=== PATIENT | male | born 1995 | race Caucasian/White ===

== ENCOUNTER 2017-04-25 00:58 | Emergency (ER) | payer BC, MEDICAID, SELFPAY | END 2017-04-25 03:47 | disposition home or self-care (01) | PROVIDERS: Emergency Provider Emergency Medicine; Family Provider Internal Medicine Adolescent Medicine; Visit Provider Emergency Medicine | DX: R31.0 Gross hematuria (principal); Q05.9 Spina bifida, unspecified; Z91.040 Latex allergy status | CPT/HCPCS: 51702; 74176; 80053; 85025; 99283 ==

== ENCOUNTER → 2017-06-06 12:18 | Outpatient (REF) | payer BC, MEDICAID, SELFPAY ==
[2017-06-06 12:22] LABS: Microscopic, Urine URINE MICROSCOPIC (MICROSCOPIC)
[2017-06-06 12:56] LABS: Appearance,Urine CLOUDY (Clear); Blood, Urine 3+ (Negative); Color,Urine ORANGE (Yellow); Glucose,Urine (UA) Negative (Negative); Ketones,Urine Negative (Negative); Leukocyte Esterase,Urine TRACE (Negative); Nitrate,Urine Negative (Negative); PH,Urine 5.5 (5.0-8.5); Protein,Urine 1+ (Negative); Specific Gravity, Urine >= 1.030 (1.005-1.030); Urobilinogen,Urine 0.2 EU/dl (0.2)
[2017-06-06 13:06] LABS: Bacteria,Urine 1+ /lpf; Bilirubin,Urine Negative (Negative); Mucus,Urine 1+ /lpf; RBC,Urine 20-50 #/hpf (0-3)
== END ==
LOC: LAB 12:18
PROVIDERS: Visit Provider Urology
DX: N39.0 Urinary tract infection, site not specified (principal)
CPT/HCPCS: 81001; 87086; 87088; 87186

== ENCOUNTER → 2018-02-10 09:21 | Outpatient (CLI) | payer BC, MEDICAID, SELFPAY ==
--- NOTE | 2018-02-10 09:24 | US_ITS ---
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 The right renal moiety measures 8.8 x 5 x 5.6 cm with mild prominence of the right renal pelvis. Left renal moiety measures 10 x 5 x 4 cm. No hydronephrosis evident on the left. No obvious renal calculi. IMPRESSION: Mild dilatation of the right renal moiety at the UPJ in this patient with known horseshoe kidney
--- NOTE | 2018-02-10 09:24 | US_ITS ---
US urinary bladder CLINICAL INDICATION: Chronic urinary tract infection, suprapubic catheter present ITS.REASON: chronic UTI ORDERING PHYSICIAN: Gregg Barrett MD PATIENT AGE: 22 years Comparison: None FINDINGS: Images obtained of the urinary bladder show a indwelling catheter present. There is some debris within the gravity dependent portion of the urinary bladder. Bladder wall itself has an unremarkable appearance The bladder volume is calculated be 156 mL's an empty bladder volume calculated to be 6 mL's. IMPRESSION: Small volume of urinary bladder at 156 mL's with full bladder decreasing to 6 mL's following drainage with some debris within the urinary bladder
== END ==
PROVIDERS: Family Provider Internal Medicine Adolescent Medicine; PCP Internal Medicine Adolescent Medicine; Visit Provider Urology
DX: N39.0 Urinary tract infection, site not specified (principal)
CPT/HCPCS: 76770; 76857; 87086; 87088; 87186

== ENCOUNTER → 2018-02-23 12:43 | Outpatient (CLI) | payer BC, MEDICAID, SELFPAY | PROVIDERS: PCP Internal Medicine Adolescent Medicine; Visit Provider Urology | DX: N39.0 Urinary tract infection, site not specified (principal) | CPT/HCPCS: 87086; 87088; 87186 ==

== ENCOUNTER → 2018-03-09 15:57 | Outpatient (CLI) | payer BC, MEDICAID, SELFPAY | PROVIDERS: Visit Provider Urology | DX: N39.0 Urinary tract infection, site not specified (principal) | CPT/HCPCS: 87086; 87088; 87186 ==

== ENCOUNTER 2018-03-12 15:21 | Outpatient (CLI) | payer BC, MEDICAID, SELFPAY ==
[2018-03-12 16:01] VITALS: BMI 28.3
[2018-03-12 16:05] VITALS: BP 102/54; PULSE 78; RESP 18; TEMP 36.5; O2SAT 98
--- NOTE | 2018-03-12 16:38 | PC.NURSE ---
03/12/18 1605 Invanz 1Gm IM given per MD order, 500mg IM L thigh, 500mg IM R thigh. Pt shanna well with no problems noted
--- NOTE | 2018-03-12 16:41 | PC.NURSE ---
03/12/18 1550 Order obtained from Josi Schaefer APRN to culture wound drainage from suprapubic catheter site. Patient and patient's Mother report increased drainage with very foul odor that has not responded to previous antibiotics. 1600- Wound culture done as ordered. Pt shanna well.
== END 2018-03-12 16:35 | disposition home or self-care (01) ==
LOC: INF 15:21
PROVIDERS: Visit Provider Urology
DX: N39.0 Urinary tract infection, site not specified (principal)
CPT/HCPCS: 87070; 87077; 87186; 87205; 96372; J1335

== ENCOUNTER 2018-03-13 14:45 | Outpatient (CLI) | payer BC, MEDICAID, SELFPAY ==
[2018-03-13 15:20] VITALS: BP 121/83; PULSE 98; RESP 16; TEMP 36.6; O2SAT 98
== END 2018-03-13 15:35 | disposition home or self-care (01) ==
LOC: INF 14:53
PROVIDERS: Visit Provider Urology
DX: N39.0 Urinary tract infection, site not specified (principal)
CPT/HCPCS: 96372; J1335

== ENCOUNTER 2018-03-14 14:40 | Outpatient (CLI) | payer BC, MEDICAID, SELFPAY ==
[2018-03-14 14:53] VITALS: BP 106/76; PULSE 85; RESP 16; O2SAT 99; BMI 28.3
== END 2018-03-14 15:08 | disposition home or self-care (01) ==
LOC: INF 14:41
PROVIDERS: PCP Urology; Visit Provider Urology
DX: N39.0 Urinary tract infection, site not specified (principal)
CPT/HCPCS: 96372; J1335

== ENCOUNTER 2018-03-15 14:48 | Outpatient (CLI) | payer BC, MEDICAID, SELFPAY ==
[2018-03-15 15:04] VITALS: BMI 28.3
[2018-03-15 15:05] VITALS: BP 113/78; PULSE 79; RESP 18; TEMP 36.6; O2SAT 98
[2018-03-15 15:23] VITALS: BP 113/78; PULSE 79; RESP 18; TEMP 36.6; O2SAT 98
== END 2018-03-15 15:25 | disposition home or self-care (01) ==
LOC: INF 14:48
PROVIDERS: PCP Urology; Visit Provider Urology
DX: N39.0 Urinary tract infection, site not specified (principal)
CPT/HCPCS: 96372; G0463; J1335

== ENCOUNTER 2018-03-16 14:49 | Outpatient (CLI) | payer BC, MEDICAID, SELFPAY ==
[2018-03-16 15:08] VITALS: BP 110/67; PULSE 73; RESP 18; TEMP 36.5; O2SAT 97
== END 2018-03-16 15:20 | disposition home or self-care (01) ==
LOC: INF 14:49
PROVIDERS: Visit Provider Urology
DX: N39.0 Urinary tract infection, site not specified (principal)
CPT/HCPCS: 96372; J1335

== ENCOUNTER 2018-03-17 14:40 | Outpatient (CLI) | payer BC, MEDICAID, SELFPAY ==
[2018-03-17 14:48] VITALS: BP 102/71; PULSE 81; RESP 18; TEMP 36.4; O2SAT 98
== END 2018-03-17 15:10 | disposition home or self-care (01) ==
LOC: INF 14:40
PROVIDERS: Visit Provider Urology
DX: N39.0 Urinary tract infection, site not specified (principal)
CPT/HCPCS: 96372; J1335

== ENCOUNTER 2018-03-18 14:20 | Outpatient (CLI) | payer BC, MEDICAID, SELFPAY ==
[2018-03-18 14:50] VITALS: BP 111/65; PULSE 115; RESP 18; TEMP 36.6; O2SAT 95
== END 2018-03-18 15:05 | disposition home or self-care (01) ==
LOC: INF 14:28
PROVIDERS: Visit Provider Urology
DX: N39.0 Urinary tract infection, site not specified (principal)
CPT/HCPCS: 96372; J1335

== ENCOUNTER 2018-03-19 14:35 | Outpatient (CLI) | payer BC, MEDICAID, SELFPAY ==
[2018-03-19 14:55] VITALS: BP 99/71; PULSE 89; RESP 18; O2SAT 99
== END 2018-03-19 15:15 | disposition home or self-care (01) ==
LOC: INF 14:51
PROVIDERS: Visit Provider Urology
DX: N39.0 Urinary tract infection, site not specified (principal)
CPT/HCPCS: 96372; J1335

== ENCOUNTER 2018-03-20 14:45 | Outpatient (CLI) | payer BC, MEDICAID, SELFPAY ==
[2018-03-20 14:55] VITALS: BP 111/73; PULSE 94; RESP 18; TEMP 36.2; O2SAT 100
== END 2018-03-20 15:15 | disposition home or self-care (01) ==
LOC: INF 14:56
PROVIDERS: Visit Provider Urology
DX: N39.0 Urinary tract infection, site not specified (principal)
CPT/HCPCS: 96372; J1335

== ENCOUNTER 2018-03-21 14:44 | Outpatient (CLI) | payer BC, MEDICAID, SELFPAY | END 2018-03-21 15:50 | disposition home or self-care (01) | LOC: INF 14:44 | PROVIDERS: PCP Internal Medicine Adolescent Medicine; Visit Provider Urology | DX: N39.0 Urinary tract infection, site not specified (principal) | CPT/HCPCS: 96372; J1335 ==

== ENCOUNTER → 2018-03-22 14:29 | Outpatient (CLI) | payer BC, MEDICAID, SELFPAY ==
[2018-03-22 14:30] VITALS: BP 110/75; PULSE 96; RESP 16; TEMP 36.6; O2SAT 100
== END ==
PROVIDERS: PCP Internal Medicine Adolescent Medicine; Visit Provider Urology
DX: N39.0 Urinary tract infection, site not specified (principal)
CPT/HCPCS: 96372; J1335

== ENCOUNTER 2018-03-23 14:40 | Outpatient (CLI) | payer BC, MEDICAID, SELFPAY ==
[2018-03-23 15:00] VITALS: BP 109/65; PULSE 105; RESP 18; TEMP 36.6; O2SAT 99
== END 2018-03-23 15:15 | disposition home or self-care (01) ==
LOC: INF 14:40
PROVIDERS: Visit Provider Urology
DX: N39.0 Urinary tract infection, site not specified (principal)
CPT/HCPCS: 96372; J1335

== ENCOUNTER 2018-03-24 14:52 | Outpatient (CLI) | payer BC, MEDICAID, SELFPAY ==
[2018-03-24 15:05] VITALS: BP 108/74; PULSE 103; RESP 18; TEMP 36.6; O2SAT 99
--- NOTE | 2018-03-24 15:24 | PC.NURSE ---
03/24/18 1505 Invanz 1 GM IM given as ordered, 500mg L thigh, 500mg R thigh. Pt shanna well.
== END 2018-03-24 15:27 | disposition home or self-care (01) ==
LOC: INF 14:52
PROVIDERS: Visit Provider Urology
DX: N39.0 Urinary tract infection, site not specified (principal)
CPT/HCPCS: 96372; J1335

== ENCOUNTER 2018-03-25 14:24 | Outpatient (CLI) | payer BC, MEDICAID, SELFPAY ==
[2018-03-25 14:45] VITALS: BP 96/69; PULSE 96; RESP 18; TEMP 36.9; O2SAT 95
== END 2018-03-25 14:45 | disposition home or self-care (01) ==
LOC: INF 14:24
PROVIDERS: Visit Provider Urology
DX: N39.0 Urinary tract infection, site not specified (principal)
CPT/HCPCS: 96372; J1335

== ENCOUNTER → 2018-04-24 14:26 | Outpatient (CLI) | payer BC, MEDICAID, SELFPAY ==
[2018-04-24 14:32] LABS: Microscopic, Urine URINE MICROSCOPIC (MICROSCOPIC)
[2018-04-24 16:35] LABS: Appearance,Urine CLOUDY (Clear); Bilirubin,Urine Negative (Negative); Blood, Urine 2+ (Negative); Color,Urine YELLOW (Yellow); Glucose,Urine (UA) Negative (Negative); Ketones,Urine Negative (Negative); Leukocyte Esterase,Urine 2+ (Negative); Nitrate,Urine Negative (Negative); PH,Urine 6.5 (5.0-8.5); Protein,Urine 1+ (Negative); Specific Gravity, Urine 1.025 (1.005-1.030)
[2018-04-24 16:51] LABS: Bacteria,Urine 3+ /lpf; Squamous Epithelial Cell,Urine Occasional #/hpf (0-5)
== END ==
PROVIDERS: PCP Internal Medicine Adolescent Medicine; Visit Provider Internal Medicine Adolescent Medicine
DX: R82.90 Unspecified abnormal findings in urine (principal)
CPT/HCPCS: 81001; 87086; 87088; 87186

== ENCOUNTER 2018-10-09 14:00 | Outpatient (CLI) | payer BC, MEDICAID, SELFPAY ==
[2018-10-09 15:25] VITALS: BP 106/75; PULSE 86; RESP 16; O2SAT 99
[2018-10-09 15:43] VITALS: BMI 26.1
[2018-10-09 15:55] VITALS: BP 110/79; PULSE 101; RESP 16
[2018-10-09 16:25] VITALS: BP 124/65; PULSE 119; RESP 16
[2018-10-09 17:07] LABS: Creatinine Clearance Estimated 394 mL/min (50-200); Estimated Glomerular Filt Rate 604 ml/min (>60); GFR (African American) 731 ML/MIN (>60)
[2018-10-09 18:15] LABS: Tobramycin,Peak 9.2 ug/mL (4.0-10.0)
== END 2018-10-09 18:17 | disposition home or self-care (01) ==
LOC: INF 14:02
PROVIDERS: Visit Provider Internal Medicine Adolescent Medicine
DX: N39.0 Urinary tract infection, site not specified (principal)
CPT/HCPCS: 36415; 80200; 82565; 96365

== ENCOUNTER 2018-10-10 13:52 | Outpatient (CLI) | payer BC, MEDICAID, SELFPAY ==
[2018-10-10 14:06] VITALS: BMI 26.1
[2018-10-10 14:30] VITALS: BP 117/79; PULSE 89; RESP 16; O2SAT 97
[2018-10-10 15:17] LABS: Tobramycin,Trough 0.1 ug/ml (0-2.0)
== END 2018-10-10 16:47 | disposition home or self-care (01) ==
LOC: INF 13:52
PROVIDERS: PCP Internal Medicine Adolescent Medicine; Visit Provider Internal Medicine Adolescent Medicine
DX: N39.0 Urinary tract infection, site not specified (principal)
CPT/HCPCS: 36415; 80200; 96365

== ENCOUNTER 2018-10-11 13:12 | Outpatient (CLI) | payer BC, MEDICAID, SELFPAY ==
[2018-10-11 13:30] VITALS: BP 115/76; PULSE 86; RESP 18; TEMP 36.7; O2SAT 99
[2018-10-11 14:46] VITALS: BP 112/77; PULSE 85; RESP 18; O2SAT 99
== END 2018-10-11 14:47 | disposition home or self-care (01) ==
LOC: INF 13:12
PROVIDERS: PCP Internal Medicine Adolescent Medicine; Visit Provider Internal Medicine Adolescent Medicine
DX: N39.0 Urinary tract infection, site not specified (principal)
CPT/HCPCS: 96365

== ENCOUNTER 2018-10-13 14:08 | Outpatient (CLI) | payer BC, MEDICAID, SELFPAY ==
[2018-10-13 15:00] VITALS: BP 117/79; PULSE 81; RESP 18; TEMP 36.6; O2SAT 98
== END 2018-10-13 15:00 | disposition home or self-care (01) ==
LOC: INF 14:08
PROVIDERS: Visit Provider Internal Medicine Adolescent Medicine
DX: N39.0 Urinary tract infection, site not specified (principal)

== ENCOUNTER → 2018-11-16 08:56 | Outpatient (CLI) | payer BC, MEDICAID, SELFPAY ==
--- NOTE | 2018-11-16 09:04 | US_ITS ---
US abdomen complete HISTORY: ITS.REASON: ABD WALL CELLULITIS,CHRONIC SUPRAPUBIC ORDERING PHYSICIAN: Job Delgado MD PATIENT AGE: 22 years COMPARISON: None FINDINGS: LIVER:No focal liver lesions demonstrated. Homogeneous echogenicity. No intrahepatic biliary ductal dilatation evident RIGHT KIDNEY:Unremarkable. Normal size and echogenicity. No hydronephrosis LEFT KIDNEY:Unremarkable. No hydronephrosis. Normal size and echogenicity. GALLBLADDER:No gallstones, gallbladder wall thickening, pericholecystic fluid, or biliary dilatation. SPLEEN:Unremarkable. Normal size and echogenicity ASCITES:None demonstrated. Soft tissues: There is a Cano catheter within the urinary bladder which is collapsed. No evidence of abscess around the catheter. IMPRESSION: Unremarkable abdominal ultrasound. Cano catheter in place within a collapsed urinary bladder with no obvious abscess
== END ==
PROVIDERS: PCP Internal Medicine Adolescent Medicine; Visit Provider Internal Medicine Adolescent Medicine
DX: L03.311 Cellulitis of abdominal wall (principal); Z93.59 Other cystostomy status
CPT/HCPCS: 76700

== ENCOUNTER → 2019-03-16 11:14 | Outpatient (CLI) | payer BC, MEDICAID, SELFPAY | PROVIDERS: PCP Internal Medicine Adolescent Medicine; Visit Provider Urology | DX: N39.0 Urinary tract infection, site not specified (principal) | CPT/HCPCS: 87086; 87088; 87186 ==

== ENCOUNTER 2019-03-19 13:22 | Outpatient (CLI) | payer BC, MEDICAID, SELFPAY ==
[2019-03-19 13:20] VITALS: BP 116/81; PULSE 115; RESP 18; TEMP 37.1; O2SAT 98
== END 2019-03-19 13:42 | disposition home or self-care (01) ==
LOC: INF 13:22
PROVIDERS: Visit Provider Urology
DX: N39.0 Urinary tract infection, site not specified (principal)
CPT/HCPCS: 96372

== ENCOUNTER → 2019-03-20 12:55 | Outpatient (CLI) | payer BC, MEDICAID, SELFPAY ==
[2019-03-20 13:06] VITALS: BMI 21.2
[2019-03-20 13:10] VITALS: BP 113/71; PULSE 71; RESP 18; TEMP 36.8; O2SAT 96
[2019-03-20 13:12] VITALS: BP 113/74; PULSE 76; RESP 16; TEMP 36.8; O2SAT 96
== END ==
PROVIDERS: PCP Internal Medicine Adolescent Medicine; Visit Provider Urology
DX: N39.0 Urinary tract infection, site not specified (principal)
CPT/HCPCS: 96372

== ENCOUNTER 2019-03-21 13:03 | Outpatient (CLI) | payer BC, MEDICAID, SELFPAY ==
[2019-03-21 13:20] VITALS: BP 119/85; PULSE 92; RESP 18; TEMP 36.9; O2SAT 99
[2019-03-21 13:30] VITALS: BP 122/84; PULSE 88; RESP 18; TEMP 36.9; O2SAT 99
== END 2019-03-21 13:30 | disposition home or self-care (01) ==
PROVIDERS: PCP Internal Medicine Adolescent Medicine; Visit Provider Urology
DX: N39.0 Urinary tract infection, site not specified (principal)
CPT/HCPCS: 96372; G0463

== ENCOUNTER 2019-03-22 13:40 | Outpatient (CLI) | payer BC, MEDICAID, SELFPAY ==
[2019-03-22 13:58] VITALS: BP 138/79; PULSE 90; RESP 18; O2SAT 96
== END 2019-03-22 14:00 | disposition home or self-care (01) ==
LOC: INF 13:41
PROVIDERS: Visit Provider Urology
DX: N39.0 Urinary tract infection, site not specified (principal)
CPT/HCPCS: 96372

== ENCOUNTER 2019-03-23 13:45 | Outpatient (CLI) | payer BC, MEDICAID, SELFPAY ==
[2019-03-23 14:05] VITALS: BP 133/97; PULSE 102; RESP 18; TEMP 36.9
== END 2019-03-23 14:05 | disposition home or self-care (01) ==
LOC: INF 13:45
PROVIDERS: Visit Provider Urology
DX: N39.0 Urinary tract infection, site not specified (principal)
CPT/HCPCS: 96372

== ENCOUNTER 2019-03-24 13:36 | Outpatient (CLI) | payer BC, MEDICAID, SELFPAY ==
[2019-03-24 13:47] VITALS: BP 122/86; PULSE 90; RESP 18
== END 2019-03-24 13:50 | disposition home or self-care (01) ==
LOC: INF 13:36
PROVIDERS: Visit Provider Urology
DX: N39.0 Urinary tract infection, site not specified (principal)
CPT/HCPCS: 96372

== ENCOUNTER 2019-03-25 13:37 | Outpatient (CLI) | payer BC, MEDICAID, SELFPAY ==
[2019-03-25 13:48] VITALS: BP 115/83; PULSE 93; RESP 18; TEMP 36.3
== END 2019-03-25 13:48 | disposition home or self-care (01) ==
LOC: INF 13:37
PROVIDERS: Visit Provider Urology
DX: N39.0 Urinary tract infection, site not specified (principal)
CPT/HCPCS: 96372

== ENCOUNTER 2019-03-26 13:32 | Outpatient (CLI) | payer BC, MEDICAID, SELFPAY ==
[2019-03-26 13:48] VITALS: BP 144/100; PULSE 87; RESP 18; TEMP 36.8
== END 2019-03-26 13:53 | disposition home or self-care (01) ==
LOC: INF 13:47
PROVIDERS: Visit Provider Urology
DX: N39.0 Urinary tract infection, site not specified (principal)
CPT/HCPCS: 96372

== ENCOUNTER 2019-03-27 13:33 | Outpatient (CLI) | payer BC, MEDICAID, SELFPAY ==
[2019-03-27 13:46] VITALS: BP 109/76; PULSE 88; O2SAT 98
== END 2019-03-27 14:03 | disposition home or self-care (01) ==
PROVIDERS: PCP Internal Medicine Adolescent Medicine; Visit Provider Urology
DX: N39.0 Urinary tract infection, site not specified (principal)
CPT/HCPCS: 96372

== ENCOUNTER 2019-03-28 13:27 | Outpatient (CLI) | payer BC, MEDICAID, SELFPAY ==
[2019-03-28 13:42] VITALS: BP 112/79; PULSE 89; RESP 18; TEMP 36.3; O2SAT 100
[2019-03-28 13:50] VITALS: BP 112/79; PULSE 89; RESP 18; TEMP 36.3; O2SAT 100
== END 2019-03-28 13:50 | disposition home or self-care (01) ==
LOC: INF 13:30
PROVIDERS: PCP Internal Medicine Adolescent Medicine; Visit Provider Urology
DX: N39.0 Urinary tract infection, site not specified (principal)
CPT/HCPCS: 96372; 96374

== ENCOUNTER → 2019-06-18 09:35 | Outpatient (CLI) | payer BC, MEDICAID, SELFPAY | PROVIDERS: Visit Provider Urology | DX: N39.0 Urinary tract infection, site not specified (principal) | CPT/HCPCS: 87086; 87088; 87186 ==

== ENCOUNTER → 2019-08-18 13:42 | Outpatient (CLI) | payer BC, MEDICAID, SELFPAY | PROVIDERS: Visit Provider Urology | DX: N39.0 Urinary tract infection, site not specified (principal) | CPT/HCPCS: 87086; 87088; 87186 ==

== ENCOUNTER → 2019-10-05 12:57 | Outpatient (CLI) | payer BC, MEDICAID, SELFPAY | PROVIDERS: Visit Provider Urology | DX: N39.0 Urinary tract infection, site not specified (principal) | CPT/HCPCS: 87086; 87088; 87186 ==

== ENCOUNTER → 2020-05-17 11:17 | Outpatient (CLI) | payer BC, MEDICAID, SELFPAY | PROVIDERS: Visit Provider Internal Medicine Adolescent Medicine | DX: N39.0 Urinary tract infection, site not specified (principal); L03.311 Cellulitis of abdominal wall | CPT/HCPCS: 87070; 87077; 87086; 87088; 87186; 87205 ==

== ENCOUNTER 2020-05-24 14:49 | Outpatient (CLI) | payer BC, MEDICAID, SELFPAY ==
[2020-05-24 15:50] VITALS: BP 145/95; PULSE 102; RESP 18; TEMP 36.4; O2SAT 100
== END 2020-05-24 16:05 | disposition home or self-care (01) ==
LOC: INF 14:49
PROVIDERS: PCP Internal Medicine Adolescent Medicine; Visit Provider Internal Medicine Adolescent Medicine
DX: N39.0 Urinary tract infection, site not specified (principal)
CPT/HCPCS: 96372; J0692

== ENCOUNTER 2020-05-25 15:06 | Outpatient (CLI) | payer BC, MEDICAID, SELFPAY ==
[2020-05-25 15:15] VITALS: BP 126/77; PULSE 129; RESP 18; TEMP 36.1; O2SAT 98
== END 2020-05-25 15:30 | disposition home or self-care (01) ==
LOC: INF 15:06
PROVIDERS: Visit Provider Internal Medicine Adolescent Medicine
DX: N39.0 Urinary tract infection, site not specified (principal)
CPT/HCPCS: 96372; J0692

== ENCOUNTER 2020-05-26 15:10 | Outpatient (CLI) | payer BC, MEDICAID, SELFPAY | END 2020-05-26 15:40 | disposition home or self-care (01) | LOC: INF 15:19 | PROVIDERS: Visit Provider Internal Medicine Adolescent Medicine | DX: N39.0 Urinary tract infection, site not specified (principal) | CPT/HCPCS: 96372; J0692 ==

== ENCOUNTER → 2020-05-27 15:27 | Outpatient (CLI) | payer BC, MEDICAID, SELFPAY ==
[2020-05-27 15:40] VITALS: BP 121/83; PULSE 108; RESP 16; TEMP 36.8; O2SAT 98
== END ==
PROVIDERS: PCP Internal Medicine Adolescent Medicine; Visit Provider Internal Medicine Adolescent Medicine
DX: N39.0 Urinary tract infection, site not specified (principal)
CPT/HCPCS: 96372; J0692

== ENCOUNTER 2020-05-28 14:57 | Outpatient (CLI) | payer BC, MEDICAID, SELFPAY ==
[2020-05-28 15:00] VITALS: BP 121/73; PULSE 112; RESP 18; TEMP 36.2
[2020-05-28 15:32] VITALS: BP 119/70; PULSE 110; RESP 18
== END 2020-05-28 15:34 | disposition home or self-care (01) ==
LOC: INF 14:58
PROVIDERS: PCP Internal Medicine Adolescent Medicine; Visit Provider Internal Medicine Adolescent Medicine
DX: N39.0 Urinary tract infection, site not specified (principal)
CPT/HCPCS: 96372; 96374; J0692

== ENCOUNTER 2020-05-29 15:10 | Outpatient (CLI) | payer BC, MEDICAID, SELFPAY ==
[2020-05-29 15:24] VITALS: BP 133/89; PULSE 125; RESP 18; TEMP 36.5; O2SAT 96
== END 2020-05-29 15:24 | disposition home or self-care (01) ==
LOC: INF 15:11
PROVIDERS: Visit Provider Internal Medicine Adolescent Medicine
DX: N39.0 Urinary tract infection, site not specified (principal)
CPT/HCPCS: 96372; J0692

== ENCOUNTER 2020-05-30 15:00 | Outpatient (CLI) | payer BC, MEDICAID, SELFPAY ==
[2020-05-30 15:15] VITALS: BP 133/91; PULSE 129; RESP 18; TEMP 36.6
== END 2020-05-30 15:15 | disposition home or self-care (01) ==
LOC: INF 15:00
PROVIDERS: Visit Provider Internal Medicine Adolescent Medicine
DX: N39.0 Urinary tract infection, site not specified (principal)
CPT/HCPCS: 96372; J0692

== ENCOUNTER → 2020-06-06 11:30 | Outpatient (CLI) | payer BC, MEDICAID, SELFPAY ==
[2020-06-06 11:33] LABS: Microscopic,Cath URINE MICROSCOPIC (MICROSCOPIC)
[2020-06-06 14:27] LABS: Appearance,Urine/Cath CLEAR (Clear); Bilirubin,Cath Negative (Negative); Blood, Urine/Cath 3+ (Negative); Color,Urine/Cath YELLOW (Yellow); Glucose,Urine/Cath (UA) Negative (Negative); Ketones,Urine/Cath Negative (Negative); Leukocyte Esterase,Cath 1+ (Negative); Nitrate,Cath Negative (Negative); PH,Urine/Cath 6.5 (5.0-8.5); Protein,Urine/Cath TRACE (Negative); Urobilinogen,Cath 0.2 EU/dl (0.2)
[2020-06-06 14:35] LABS: Bacteria,Urine/Cath TRACE /lpf; Squamous Epithelial Ur./Cath Occasional #/hpf (0-5)
== END ==
PROVIDERS: Visit Provider Internal Medicine Adolescent Medicine
DX: N39.0 Urinary tract infection, site not specified (principal)
CPT/HCPCS: 81001; 87086; 87088; 87186

== ENCOUNTER → 2020-10-23 17:42 | Outpatient (CLI) | payer BC, MEDICAID, SELFPAY | PROVIDERS: Visit Provider Internal Medicine Adolescent Medicine | DX: R82.90 Unspecified abnormal findings in urine (principal) | CPT/HCPCS: 87086; 87088; 87186 ==

== ENCOUNTER → 2021-01-29 08:00 | Outpatient (CLI) | payer BC, MEDICAID, SELFPAY | PROVIDERS: Visit Provider Internal Medicine Adolescent Medicine | DX: R50.9 Fever, unspecified (principal) | CPT/HCPCS: 87086; 87088; 87186 ==

== ENCOUNTER → 2021-02-05 14:10 | Outpatient (CLI) | payer BC, MEDICAID, SELFPAY ==
[2021-02-05 14:38] VITALS: BP 120/76; PULSE 111; RESP 18; TEMP 36.1; O2SAT 111
== END ==
PROVIDERS: PCP Internal Medicine Adolescent Medicine; Visit Provider Internal Medicine Adolescent Medicine
DX: N39.0 Urinary tract infection, site not specified (principal)
CPT/HCPCS: 96372; J1335

== ENCOUNTER 2021-02-06 13:49 | Outpatient (CLI) | payer BC, MEDICAID, SELFPAY ==
[2021-02-06 14:12] VITALS: BP 120/84; PULSE 98; RESP 18; TEMP 36.4; O2SAT 98
== END 2021-02-06 14:12 | disposition home or self-care (01) ==
LOC: INF 13:49
PROVIDERS: PCP Internal Medicine Adolescent Medicine; Visit Provider Internal Medicine Adolescent Medicine
DX: N39.0 Urinary tract infection, site not specified (principal); B96.89 Other specified bacterial agents as the cause of diseases classified elsewhere
CPT/HCPCS: 96372; J1335

== ENCOUNTER 2021-02-07 13:56 | Outpatient (CLI) | payer BC, MEDICAID, SELFPAY ==
[2021-02-07 14:24] VITALS: BP 117/74; PULSE 101; RESP 18; O2SAT 98
== END 2021-02-07 14:26 | disposition home or self-care (01) ==
LOC: INF 13:58
PROVIDERS: PCP Internal Medicine Adolescent Medicine; Visit Provider Internal Medicine Adolescent Medicine
DX: N39.0 Urinary tract infection, site not specified (principal)
CPT/HCPCS: 96372; J1335

== ENCOUNTER 2021-02-08 13:36 | Outpatient (CLI) | payer BC, MEDICAID, SELFPAY ==
[2021-02-08 13:56] VITALS: BP 112/75; PULSE 78; RESP 18; TEMP 36.3; O2SAT 100
== END 2021-02-08 13:56 | disposition home or self-care (01) ==
LOC: INF 13:37
PROVIDERS: PCP Internal Medicine Adolescent Medicine; Visit Provider Internal Medicine Adolescent Medicine
DX: N39.0 Urinary tract infection, site not specified (principal)
CPT/HCPCS: 96372; J1335

== ENCOUNTER 2021-02-09 13:53 | Outpatient (CLI) | payer BC, MEDICAID, SELFPAY ==
[2021-02-09 14:30] VITALS: BP 110/73; PULSE 89; RESP 17; TEMP 36.8; O2SAT 99
== END 2021-02-09 14:32 | disposition home or self-care (01) ==
LOC: INF 13:54
PROVIDERS: PCP Internal Medicine Adolescent Medicine; Visit Provider Internal Medicine Adolescent Medicine
DX: N39.0 Urinary tract infection, site not specified (principal)
CPT/HCPCS: 96372; J1335

== ENCOUNTER 2021-02-10 13:52 | Outpatient (CLI) | payer BC, MEDICAID, SELFPAY | END 2021-02-10 14:25 | disposition home or self-care (01) | PROVIDERS: PCP Internal Medicine Adolescent Medicine; Visit Provider Internal Medicine Adolescent Medicine | DX: N39.0 Urinary tract infection, site not specified (principal) | CPT/HCPCS: 96372; 96374; J1335 ==

== ENCOUNTER 2021-02-11 13:53 | Outpatient (CLI) | payer BC, MEDICAID, SELFPAY | END 2021-02-11 14:24 | disposition home or self-care (01) | PROVIDERS: PCP Internal Medicine Adolescent Medicine; Visit Provider Internal Medicine Adolescent Medicine | DX: N39.0 Urinary tract infection, site not specified (principal) | CPT/HCPCS: 96372; J1335 ==

== ENCOUNTER → 2021-03-05 11:07 | Outpatient (CLI) | payer BC, MEDICAID, SELFPAY | PROVIDERS: Visit Provider Nurse Practitioner Family | DX: R82.90 Unspecified abnormal findings in urine (principal); B96.89 Other specified bacterial agents as the cause of diseases classified elsewhere | CPT/HCPCS: 87086; 87088; 87186 ==

== ENCOUNTER → 2021-04-23 18:02 | Outpatient (CLI) | payer BC, MEDICAID, SELFPAY | PROVIDERS: Visit Provider Internal Medicine Adolescent Medicine | DX: R82.90 Unspecified abnormal findings in urine (principal); B96.1 Klebsiella pneumoniae [K. pneumoniae] as the cause of diseases classified elsewhere; B96.89 Other specified bacterial agents as the cause of diseases classified elsewhere | CPT/HCPCS: 87086; 87088; 87186 ==

== ENCOUNTER → 2021-05-08 18:15 | Outpatient (CLI) | payer BC, MEDICAID, SELFPAY | PROVIDERS: Visit Provider Internal Medicine Adolescent Medicine | DX: R82.90 Unspecified abnormal findings in urine (principal); B96.89 Other specified bacterial agents as the cause of diseases classified elsewhere | CPT/HCPCS: 87086; 87088; 87186 ==

== ENCOUNTER → 2021-12-19 14:12 | Outpatient (CLI) | payer MEDICAID, SELFPAY | PROVIDERS: PCP Internal Medicine Adolescent Medicine; Visit Provider Internal Medicine Adolescent Medicine | DX: R82.90 Unspecified abnormal findings in urine (principal); B96.1 Klebsiella pneumoniae [K. pneumoniae] as the cause of diseases classified elsewhere | CPT/HCPCS: 87086; 87088; 87186 ==

== ENCOUNTER → 2022-01-04 13:43 | Outpatient (CLI) | payer MEDICAID, SELFPAY | PROVIDERS: PCP Internal Medicine Adolescent Medicine; Visit Provider Internal Medicine Adolescent Medicine | DX: N39.0 Urinary tract infection, site not specified (principal); B96.1 Klebsiella pneumoniae [K. pneumoniae] as the cause of diseases classified elsewhere | CPT/HCPCS: 87086; 87088; 87186 ==

== ENCOUNTER 2022-02-19 11:07 | Outpatient (CLI) | payer MEDICAID, SELFPAY ==
[2022-02-19 12:03] VITALS: BMI 25.1
[2022-02-19 12:37] LABS: Basophils # 0.1 K/mm3 (0-0.2); Basophils % 0.9 % (0.1-2.0); Eosinophils # 0.3 K/mm3 (0.0-0.4); Eosinophils % 2.9 % (0.1-12.0); Hemoglobin 15.3 g/dL (14.1-18.0); Lymphocytes # 1.5 K/mm3 (0.7-4.5); Lymphocytes % 15.6 % (10-50); Mean Corpuscular HGB Conc 32.7 g/dL (31.8-35.4); Mean Corpuscular Hemoglobin 27.6 pg (27.0-31.2); Mean Corpuscular Volume 84.5 fl (80-94); Mean Platelet Volume 8.7 fl (7.4-10.4); Monocytes # 0.5 K/mm3 (0.1-1.0); Monocytes % 4.7 % (1.7-9.3); Neutrophils # 7.5 K/mm3 (1.8-7.8); Neutrophils % 75.9 % (37.0-80.0); Platelet Count 437 K/mm3 (142-424); Red Blood Count 5.56 M/mm3 (4.60-6.20); Red Cell Distribution Width 14.4 % (11.5-17.5); White Blood Count 9.8 K/mm3 (4.8-10.8)
--- NOTE | 2022-02-19 13:00 | PC.NURSE ---
1300-received message from radha grant in lab that pt's potassium level was 6.9 sample could be hemolized; will notify alejandro huerta aprn for further orders.
--- NOTE | 2022-02-19 13:21 | PC.NURSE ---
report recieved from alondra rosen rn, pt currently in waiting state for labs results to come back so that medication can be dosed.
--- NOTE | 2022-02-19 13:38 | PC.NURSE ---
1935-per alejandro huerta aprn lab to come redraw bmp.
--- NOTE | 2022-02-19 13:47 | PC.WOUNDNOTE ---
ATTEMPTED PICC X 2 STICKS; NOT ABLE TO GET ACCESS EITHER TIME; MOM DID NOT WANT PATIENT STUCK MORE THAN TWICE; CALLED AND REPORTED TO Jasmin LAM; AWAITING FURTHER ORDERS FROM HER; Jasmin LAM CALLED BACK AND PT WILL BE SEEING SURGERY TOMORROW FOR CENTRAL LINE THE GENT THAT IS ORDERED IS WHAT THE PATIENT NEEDS; THEY WILL ALSO TALK TO THE PATIENT AND MOM ABOUT FUTURE PLACEMENT OF PAC PATIENT IS EXTREMELY DIFFICULT STICK; LABS WERE ORDERED TODAY AND LAB HAD TO DRAW A FINGERSTICK THEY WERE UNABLE TO GET ACCESS VIA VEIN WELL.
[2022-02-19 13:50] VITALS: BP 101/58; PULSE 84; RESP 18; TEMP 36.4; O2SAT 99
[2022-02-19 14:34] LABS: Chloride 104 mmol/L (98-107); Sodium 141 mmol/L (136-145)
[2022-02-19 14:35] LABS: Potassium 4.1 mmoL/L (3.5-5.1)
[2022-02-19 14:37] LABS: Blood Urea Nitrogen 4 mg/dl (9-20); Creatinine Clearance Estimated 391 mL/min (50-200); Estimated Glomerular Filt Rate 583 ml/min (>60); GFR (African American) 706 ML/MIN (>60)
[2022-02-19 14:38] LABS: Anion Gap 18.1 mEq/L (5-15); Calcium 8.8 mg/dl (8.4-10.2); Carbon Dioxide 23 mmol/L (22.0-30.0); Glucose 168 mg/dl (74-100)
== END 2022-02-19 14:05 | disposition home or self-care (01) ==
LOC: INF 11:08
PROVIDERS: PCP Nurse Practitioner Family; Visit Provider Nurse Practitioner Family
DX: N39.0 Urinary tract infection, site not specified (principal); B96.89 Other specified bacterial agents as the cause of diseases classified elsewhere; B96.5 Pseudomonas (aeruginosa) (mallei) (pseudomallei) as the cause of diseases classified elsewhere
CPT/HCPCS: 36415; 80048; 85025; 96372; C1751

== ENCOUNTER → 2022-02-20 09:59 | Outpatient (CLI) | payer MEDICAID, SELFPAY ==
[2022-02-20 10:17] VITALS: BP 114/67; PULSE 84; RESP 18; TEMP 36.7; O2SAT 99
[2022-02-20 11:15] VITALS: BMI 25.1
[2022-02-20 11:59] LABS: Gentamicin,Peak 7.3 ug/ml (4.0-8.0)
[2022-02-20 21:20] VITALS: BP 136/87; PULSE 86; RESP 18; TEMP 36.8; O2SAT 97; BMI 25.0
== END ==
PROVIDERS: PCP Nurse Practitioner Family; Visit Provider Nurse Practitioner Family
DX: N39.0 Urinary tract infection, site not specified (principal); B96.89 Other specified bacterial agents as the cause of diseases classified elsewhere; B96.5 Pseudomonas (aeruginosa) (mallei) (pseudomallei) as the cause of diseases classified elsewhere
CPT/HCPCS: 36415; 80170; 96372

== ENCOUNTER → 2022-02-20 20:54 | Outpatient (CLI) | payer MEDICAID, SELFPAY ==
[2022-02-20 21:25] VITALS: BMI 33.7
== END ==
PROVIDERS: PCP Internal Medicine Adolescent Medicine; Visit Provider Nurse Practitioner Family
DX: N39.0 Urinary tract infection, site not specified (principal); B96.89 Other specified bacterial agents as the cause of diseases classified elsewhere; B96.5 Pseudomonas (aeruginosa) (mallei) (pseudomallei) as the cause of diseases classified elsewhere

== ENCOUNTER 2022-02-21 09:19 | Outpatient (CLI) | payer MEDICAID, SELFPAY ==
[2022-02-21 09:20] VITALS: BP 134/83; PULSE 79; RESP 18; O2SAT 99; BMI 25.1
[2022-02-21 10:40] LABS: Gentamicin,Trough 0.9 ug/ml (0.0-2.0)
[2022-02-21 21:35] VITALS: BP 115/82; PULSE 84; RESP 19; TEMP 36.6; O2SAT 99
== END 2022-02-21 21:40 | disposition home or self-care (01) ==
PROVIDERS: PCP Internal Medicine Adolescent Medicine; Visit Provider Nurse Practitioner Family
DX: N39.0 Urinary tract infection, site not specified (principal); B96.89 Other specified bacterial agents as the cause of diseases classified elsewhere; B96.5 Pseudomonas (aeruginosa) (mallei) (pseudomallei) as the cause of diseases classified elsewhere
CPT/HCPCS: 36415; 80170; 96372

== ENCOUNTER 2022-02-22 09:09 | Outpatient (CLI) | payer MEDICAID, SELFPAY ==
[2022-02-22 09:17] VITALS: BP 128/72; PULSE 73; RESP 18; O2SAT 100
[2022-02-22 21:02] VITALS: BMI 36.1
[2022-02-22 21:19] VITALS: BP 127/82; PULSE 101; RESP 16; TEMP 36.9; O2SAT 100
[2022-02-22 21:31] VITALS: BP 113/78; PULSE 86; RESP 18; TEMP 36.8; O2SAT 99
== END 2022-02-22 09:23 | disposition home or self-care (01) ==
LOC: INF 09:10
PROVIDERS: PCP Nurse Practitioner Family; Visit Provider Nurse Practitioner Family
DX: N39.0 Urinary tract infection, site not specified (principal); B96.89 Other specified bacterial agents as the cause of diseases classified elsewhere; B96.5 Pseudomonas (aeruginosa) (mallei) (pseudomallei) as the cause of diseases classified elsewhere
CPT/HCPCS: 96372

== ENCOUNTER 2022-02-23 09:46 | Outpatient (CLI) | payer MEDICAID, SELFPAY ==
[2022-02-23 10:02] VITALS: BMI 36.2
--- NOTE | 2022-02-23 17:57 | PC.NURSE ---
2 VIALS OF GENTAMYCIN PULLED FOR PM DOSE PER [employer] REQUEST. LEFT IN HOUSE SUPERVISORS OFFICE.
[2022-02-23 20:55] VITALS: BP 116/78; PULSE 100; RESP 16; TEMP 37; O2SAT 98
[2022-02-23 20:58] VITALS: BP 119/74; PULSE 95; O2SAT 99
[2022-02-23 21:00] VITALS: BMI 36.2
== END 2022-02-23 10:09 | disposition home or self-care (01) ==
LOC: INF 09:46
PROVIDERS: PCP Internal Medicine Adolescent Medicine; Visit Provider Nurse Practitioner Family
DX: N39.0 Urinary tract infection, site not specified (principal); B96.89 Other specified bacterial agents as the cause of diseases classified elsewhere; B96.5 Pseudomonas (aeruginosa) (mallei) (pseudomallei) as the cause of diseases classified elsewhere
CPT/HCPCS: 96372; 96374

== ENCOUNTER 2022-02-24 10:16 | Outpatient (CLI) | payer MEDICAID, SELFPAY ==
[2022-02-24 10:16] VITALS: BP 124/62; PULSE 71; RESP 18; TEMP 36.8; O2SAT 98
[2022-02-24 10:48] VITALS: BMI 36.2
[2022-02-24 21:00] VITALS: BP 114/81; PULSE 97; RESP 15; TEMP 36.6; O2SAT 97
== END 2022-02-24 21:04 | disposition home or self-care (01) ==
PROVIDERS: PCP Nurse Practitioner Family; Visit Provider Nurse Practitioner Family
DX: N39.0 Urinary tract infection, site not specified (principal); B96.89 Other specified bacterial agents as the cause of diseases classified elsewhere; B96.5 Pseudomonas (aeruginosa) (mallei) (pseudomallei) as the cause of diseases classified elsewhere
CPT/HCPCS: 96372; 96374; G0463

== ENCOUNTER 2022-02-25 09:11 | Outpatient (CLI) | payer MEDICAID, SELFPAY ==
[2022-02-25 09:20] VITALS: BP 127/85; PULSE 86; RESP 18; O2SAT 98
[2022-02-25 20:25] VITALS: BP 119/86; PULSE 92; RESP 16; TEMP 37.1; O2SAT 98
== END 2022-02-25 20:30 | disposition home or self-care (01) ==
PROVIDERS: PCP Nurse Practitioner Family; Visit Provider Nurse Practitioner Family
DX: N39.0 Urinary tract infection, site not specified (principal); B96.89 Other specified bacterial agents as the cause of diseases classified elsewhere; B96.5 Pseudomonas (aeruginosa) (mallei) (pseudomallei) as the cause of diseases classified elsewhere
CPT/HCPCS: 96372

== ENCOUNTER → 2022-02-26 09:55 | Outpatient (CLI) | payer MEDICAID, SELFPAY ==
[2022-02-26 09:58] VITALS: BMI 25.1
[2022-02-26 10:06] VITALS: BP 120/74; PULSE 83; RESP 18; TEMP 36.8; O2SAT 99
[2022-02-26 11:00] LABS: Gentamicin,Trough 0.8 ug/ml (0.0-2.0)
== END ==
PROVIDERS: PCP Nurse Practitioner Family; Visit Provider Nurse Practitioner Family
DX: N39.0 Urinary tract infection, site not specified (principal); B96.89 Other specified bacterial agents as the cause of diseases classified elsewhere; B96.5 Pseudomonas (aeruginosa) (mallei) (pseudomallei) as the cause of diseases classified elsewhere
CPT/HCPCS: 36415; 80170; 96372

== ENCOUNTER → 2022-02-27 11:07 | Outpatient (CLI) | payer MEDICAID, SELFPAY ==
[2022-02-27 11:18] VITALS: BP 116/80; PULSE 86; RESP 18; O2SAT 98
== END ==
PROVIDERS: PCP Nurse Practitioner Family; Visit Provider Nurse Practitioner Family
DX: N39.0 Urinary tract infection, site not specified (principal); B96.89 Other specified bacterial agents as the cause of diseases classified elsewhere; B96.5 Pseudomonas (aeruginosa) (mallei) (pseudomallei) as the cause of diseases classified elsewhere
CPT/HCPCS: 96372

== ENCOUNTER → 2022-02-28 11:26 | Outpatient (CLI) | payer MEDICAID, SELFPAY ==
[2022-02-28 11:35] VITALS: BP 121/84; PULSE 92; RESP 18; O2SAT 99
[2022-02-28 23:43] VITALS: BMI 31.3
== END ==
PROVIDERS: PCP Nurse Practitioner Family; Visit Provider Nurse Practitioner Family
DX: N39.0 Urinary tract infection, site not specified (principal); B96.89 Other specified bacterial agents as the cause of diseases classified elsewhere; B96.5 Pseudomonas (aeruginosa) (mallei) (pseudomallei) as the cause of diseases classified elsewhere
CPT/HCPCS: 96372; G0463

== ENCOUNTER 2022-03-01 12:08 | Outpatient (CLI) | payer MEDICAID, SELFPAY ==
[2022-03-01 12:10] VITALS: BP 108/75; PULSE 87; RESP 16; O2SAT 100
== END 2022-03-01 12:22 | disposition home or self-care (01) ==
LOC: INF 12:09
PROVIDERS: PCP Nurse Practitioner Family; Visit Provider Nurse Practitioner Family
DX: N39.0 Urinary tract infection, site not specified (principal); B96.89 Other specified bacterial agents as the cause of diseases classified elsewhere; B96.5 Pseudomonas (aeruginosa) (mallei) (pseudomallei) as the cause of diseases classified elsewhere
CPT/HCPCS: 96372

== ENCOUNTER → 2022-05-22 15:59 | Outpatient (CLI) | payer MEDICAID, SELFPAY ==
[2022-05-22 16:06] LABS: Microscopic,Cath URINE MICROSCOPIC (MICROSCOPIC)
[2022-05-22 16:42] LABS: Appearance,Urine/Cath CLEAR (Clear); Bilirubin,Cath Negative (Negative); Blood, Urine/Cath 3+ (Negative); Color,Urine/Cath YELLOW (Yellow); Glucose,Urine/Cath (UA) Negative (Negative); Ketones,Urine/Cath Negative (Negative); Leukocyte Esterase,Cath 3+ (Negative); Nitrate,Cath Negative (Negative); Protein,Urine/Cath 1+ (Negative); Specific Gravity, Urine/Cath <= 1.005 (1.005-1.030); Urobilinogen,Cath 0.2 EU/dl (0.2)
[2022-05-22 16:49] LABS: Bacteria,Urine/Cath 1+ /lpf; Squamous Epithelial Ur./Cath Occasional #/hpf (0-5)
== END ==
PROVIDERS: PCP Nurse Practitioner Family; Visit Provider Internal Medicine Adolescent Medicine
DX: N39.0 Urinary tract infection, site not specified (principal); B96.89 Other specified bacterial agents as the cause of diseases classified elsewhere
CPT/HCPCS: 81001; 87086; 87088; 87186

== ENCOUNTER → 2022-07-27 15:15 | Outpatient (CLI) | payer MEDICAID, SELFPAY | PROVIDERS: PCP Internal Medicine Adolescent Medicine; Visit Provider Internal Medicine Adolescent Medicine | DX: R50.9 Fever, unspecified (principal); R82.90 Unspecified abnormal findings in urine; B96.1 Klebsiella pneumoniae [K. pneumoniae] as the cause of diseases classified elsewhere | CPT/HCPCS: 87086; 87088; 87186 ==

== ENCOUNTER → 2022-09-11 13:44 | Outpatient (CLI) | payer MEDICAID, SELFPAY | PROVIDERS: PCP Internal Medicine Adolescent Medicine; Visit Provider Internal Medicine Adolescent Medicine | DX: R50.9 Fever, unspecified (principal); R82.90 Unspecified abnormal findings in urine; B95.2 Enterococcus as the cause of diseases classified elsewhere | CPT/HCPCS: 87086; 87088; 87186 ==

== ENCOUNTER → 2022-09-27 14:30 | Outpatient (CLI) | payer MEDICAID, SELFPAY | PROVIDERS: PCP Internal Medicine Adolescent Medicine; Visit Provider Internal Medicine Adolescent Medicine | DX: N39.0 Urinary tract infection, site not specified (principal); B96.89 Other specified bacterial agents as the cause of diseases classified elsewhere; B96.29 Other Escherichia coli [E. coli] as the cause of diseases classified elsewhere | CPT/HCPCS: 87086; 87088; 87186 ==

== ENCOUNTER → 2022-11-05 13:03 | Outpatient (CLI) | payer MEDICAID, SELFPAY | PROVIDERS: PCP Internal Medicine Adolescent Medicine; Visit Provider Internal Medicine Adolescent Medicine | DX: R82.90 Unspecified abnormal findings in urine (principal); B95.2 Enterococcus as the cause of diseases classified elsewhere | CPT/HCPCS: 87086; 87088; 87186 ==

== ENCOUNTER → 2022-12-27 13:20 | Outpatient (CLI) | payer MEDICAID, SELFPAY ==
[2022-12-27 13:38] LABS: Microscopic, Urine URINE MICROSCOPIC (MICROSCOPIC)
[2022-12-27 14:58] LABS: Appearance,Urine CLOUDY (Clear); Bilirubin,Urine Negative (Negative); Blood, Urine 3+ (Negative); Color,Urine YELLOW (Yellow); Glucose,Urine (UA) Negative (Negative); Ketones,Urine Negative (Negative); Leukocyte Esterase,Urine 2+ (Negative); Nitrate,Urine Negative (Negative); Protein,Urine 1+ (Negative); Specific Gravity, Urine 1.015 (1.005-1.030)
[2022-12-27 15:29] LABS: Bacteria,Urine 3+ /lpf; Squamous Epithelial Cell,Urine Occasional #/hpf (0-5); WBC,Urine 20-50 #/hpf (0-3)
== END ==
PROVIDERS: PCP Internal Medicine Adolescent Medicine; Visit Provider Internal Medicine Adolescent Medicine
DX: N39.0 Urinary tract infection, site not specified (principal); B96.1 Klebsiella pneumoniae [K. pneumoniae] as the cause of diseases classified elsewhere; B96.29 Other Escherichia coli [E. coli] as the cause of diseases classified elsewhere
CPT/HCPCS: 81001; 87086; 87088; 87186

== ENCOUNTER → 2023-01-31 18:32 | Outpatient (CLI) | payer MEDICAID, SELFPAY ==
[2023-01-31 19:33] LABS: Microscopic, Urine URINE MICROSCOPIC (MICROSCOPIC)
[2023-01-31 19:42] LABS: Appearance,Urine CLOUDY (Clear); Bilirubin,Urine Negative (Negative); Blood, Urine 3+ (Negative); Color,Urine YELLOW (Yellow); Glucose,Urine (UA) Negative (Negative); Ketones,Urine Negative (Negative); Leukocyte Esterase,Urine 2+ (Negative); Nitrate,Urine Negative (Negative); Protein,Urine 2+ (Negative); Specific Gravity, Urine >= 1.030 (1.005-1.030)
[2023-01-31 19:51] LABS: Bacteria,Urine Trace /lpf; Squamous Epithelial Cell,Urine Occasional #/hpf (0-5); WBC,Urine TNTC #/hpf (0-3)
== END ==
PROVIDERS: PCP Internal Medicine Adolescent Medicine; Visit Provider Nurse Practitioner Family
DX: R31.9 Hematuria, unspecified (principal); R82.90 Unspecified abnormal findings in urine; B96.29 Other Escherichia coli [E. coli] as the cause of diseases classified elsewhere
CPT/HCPCS: 81001; 87086; 87088; 87186

== ENCOUNTER → 2023-03-11 13:44 | Outpatient (CLI) | payer MEDICAID, SELFPAY | PROVIDERS: PCP Internal Medicine Adolescent Medicine; Visit Provider Internal Medicine Adolescent Medicine | DX: R82.90 Unspecified abnormal findings in urine (principal); B96.29 Other Escherichia coli [E. coli] as the cause of diseases classified elsewhere; B96.1 Klebsiella pneumoniae [K. pneumoniae] as the cause of diseases classified elsewhere; B96.4 Proteus (mirabilis) (morganii) as the cause of diseases classified elsewhere | CPT/HCPCS: 87086 ==

== ENCOUNTER → 2023-04-23 16:13 | Outpatient (CLI) | payer MEDICAID, SELFPAY | LOC: LAB.DROPOF 16:13 | PROVIDERS: PCP Nurse Practitioner Family; Visit Provider Nurse Practitioner Family | DX: R82.90 Unspecified abnormal findings in urine (principal); B96.5 Pseudomonas (aeruginosa) (mallei) (pseudomallei) as the cause of diseases classified elsewhere; B95.2 Enterococcus as the cause of diseases classified elsewhere | CPT/HCPCS: 87086 ==

== ENCOUNTER 2023-05-01 13:02 | Outpatient (CLI) | payer MEDICAID, SELFPAY ==
[2023-05-01 13:07] VITALS: BMI 28.9
[2023-05-01 13:15] VITALS: BP 118/78; PULSE 80; RESP 18; TEMP 36.8; O2SAT 97
[2023-05-01 13:19] LABS: Basophils # 0.1 K/mm3 (0-0.2); Basophils % 0.6 % (0.1-2.0); Eosinophils # 0.3 K/mm3 (0.0-0.4); Eosinophils % 2.6 % (0.1-12.0); Hematocrit 48.1 % (42.0-52.0); Lymphocytes # 3.2 K/mm3 (0.7-4.5); Lymphocytes % 30.3 % (10-50); Mean Corpuscular HGB Conc 33.4 g/dL (31.8-35.4); Mean Corpuscular Hemoglobin 28.1 pg (27.0-31.2); Mean Corpuscular Volume 84.1 fl (80-94); Monocytes # 0.5 K/mm3 (0.1-1.0); Monocytes % 4.5 % (1.7-9.3); Neutrophils # 6.6 K/mm3 (1.8-7.8); Platelet Count 367 K/mm3 (142-424); Red Blood Count 5.72 M/mm3 (4.60-6.20); Red Cell Distribution Width 14.3 % (11.5-17.5); White Blood Count 10.6 K/mm3 (4.8-10.8)
[2023-05-01 13:33] LABS: Blood Urea Nitrogen 10 mg/dl (9-20); Calcium 9.1 mg/dl (8.4-10.2); Carbon Dioxide 25 mmol/L (22.0-30.0); Chloride 102 mmol/L (98-107); Creatinine Clearance Estimated 215 mL/min (50-200); Estimated Glomerular Filt Rate 260 ml/min (>60); GFR (African American) 315 ML/MIN (>60); Glucose 103 mg/dl (74-100); Sodium 138 mmol/L (136-145)
[2023-05-01] MEDS: GENTAMICIN 80 MG/2 ML VIAL 100 MG IM (13:42)
== END 2023-05-01 13:40 | disposition home or self-care (01) ==
PROVIDERS: Nurse Practitioner Family; PCP Internal Medicine Adolescent Medicine; Visit Provider Internal Medicine Adolescent Medicine
DX: N39.0 Urinary tract infection, site not specified (principal); B96.5 Pseudomonas (aeruginosa) (mallei) (pseudomallei) as the cause of diseases classified elsewhere
CPT/HCPCS: 36415; 80048; 85025; 96372

== ENCOUNTER → 2023-05-02 08:52 | Outpatient (CLI) | payer MEDICAID, SELFPAY ==
[2023-05-02 08:53] VITALS: BMI 28.9
[2023-05-02] MEDS: GENTAMICIN 80 MG/2 ML VIAL 100 MG IM ×2 (09:01→20:01)
[2023-05-02 09:46] LABS: Gentamicin,Trough < 0.6 ug/ml (0.0-2.0)
[2023-05-02 10:05] VITALS: BP 126/81; BP 128/64; PULSE 90; PULSE 96; RESP 18; TEMP 36.4; O2SAT 98
[2023-05-02 10:22] LABS: Gentamicin,Peak 6.8 ug/ml (4.0-8.0)
[2023-05-02 20:02] VITALS: BMI 29.0
[2023-05-02 20:09] VITALS: BP 123/92; PULSE 92; RESP 16; TEMP 36.9; O2SAT 96
== END ==
PROVIDERS: PCP Nurse Practitioner Family; Visit Provider Nurse Practitioner Family
DX: N39.0 Urinary tract infection, site not specified (principal); B96.5 Pseudomonas (aeruginosa) (mallei) (pseudomallei) as the cause of diseases classified elsewhere
CPT/HCPCS: 36415; 80170; 96372; G0463

== ENCOUNTER 2023-05-03 09:16 | Outpatient (CLI) | payer MEDICAID, SELFPAY ==
[2023-05-03] MEDS: GENTAMICIN 80 MG/2 ML VIAL 100 MG IM ×2 (09:33→20:15)
[2023-05-03 19:36] VITALS: BMI 26.9
[2023-05-03 20:17] VITALS: BP 120/87; PULSE 72; RESP 16; TEMP 37.1; O2SAT 97
== END 2023-05-03 20:15 | disposition home or self-care (01) ==
PROVIDERS: PCP Nurse Practitioner Family; Visit Provider Nurse Practitioner Family
DX: N39.0 Urinary tract infection, site not specified (principal); B96.5 Pseudomonas (aeruginosa) (mallei) (pseudomallei) as the cause of diseases classified elsewhere
CPT/HCPCS: 96372; G0463

== ENCOUNTER → 2023-05-04 10:11 | Outpatient (CLI) | payer MEDICAID, SELFPAY ==
[2023-05-04 10:19] VITALS: BMI 29.0
[2023-05-04] MEDS: GENTAMICIN 80 MG/2 ML VIAL 100 MG IM ×2 (10:20→20:13)
[2023-05-04 20:17] VITALS: BP 134/83; PULSE 109; RESP 18; TEMP 37.2; O2SAT 98
== END ==
PROVIDERS: PCP Internal Medicine Adolescent Medicine; Visit Provider Nurse Practitioner Family
DX: N39.0 Urinary tract infection, site not specified (principal); B96.5 Pseudomonas (aeruginosa) (mallei) (pseudomallei) as the cause of diseases classified elsewhere
CPT/HCPCS: 96372

== ENCOUNTER 2023-05-05 11:32 | Outpatient (CLI) | payer MEDICAID, SELFPAY ==
--- NOTE | 2023-05-05 11:41 | PC.NURSE ---
pharmacy called for medication
[2023-05-05] MEDS: GENTAMICIN 80 MG/2 ML VIAL 100 MG IM (11:53)
[2023-05-05 11:58] VITALS: BP 116/72; PULSE 92; RESP 16; O2SAT 98
== END 2023-05-05 23:59 ==
PROVIDERS: PCP Internal Medicine Adolescent Medicine; Visit Provider Nurse Practitioner Family
DX: N39.0 Urinary tract infection, site not specified (principal); B96.5 Pseudomonas (aeruginosa) (mallei) (pseudomallei) as the cause of diseases classified elsewhere
CPT/HCPCS: 96372; G0463

== ENCOUNTER 2023-05-06 09:33 | Outpatient (CLI) | payer MEDICAID, SELFPAY ==
[2023-05-06 09:50] VITALS: BP 110/67; PULSE 92; RESP 18; O2SAT 96
[2023-05-06] MEDS: GENTAMICIN 80 MG/2 ML VIAL 100 MG IM ×2 (09:50→20:49)
[2023-05-06 20:45] VITALS: BMI 27.1
[2023-05-06 20:50] VITALS: BP 112/72; PULSE 72; RESP 16; TEMP 36.9; O2SAT 97
== END 2023-05-06 23:59 ==
PROVIDERS: PCP Internal Medicine Adolescent Medicine; Visit Provider Internal Medicine Adolescent Medicine
DX: N39.0 Urinary tract infection, site not specified (principal); B96.5 Pseudomonas (aeruginosa) (mallei) (pseudomallei) as the cause of diseases classified elsewhere
CPT/HCPCS: 96372; G0463

== ENCOUNTER 2023-05-07 09:16 | Outpatient (CLI) | payer MEDICAID, SELFPAY ==
[2023-05-07] MEDS: GENTAMICIN 80 MG/2 ML VIAL 100 MG IM ×2 (09:34→20:16)
[2023-05-07 20:06] VITALS: BMI 28.9
[2023-05-07 20:07] VITALS: BP 125/82; PULSE 104; RESP 17; TEMP 36.7; O2SAT 94
[2023-05-07 20:12] VITALS: BP 125/82; PULSE 104; RESP 16; TEMP 36.7; O2SAT 94
[2023-05-07 20:19] VITALS: BP 125/82; PULSE 104; RESP 16; TEMP 36.7; O2SAT 94
== END 2023-05-07 23:59 ==
PROVIDERS: PCP Internal Medicine Adolescent Medicine; Visit Provider Nurse Practitioner Family
DX: N39.0 Urinary tract infection, site not specified (principal); B96.5 Pseudomonas (aeruginosa) (mallei) (pseudomallei) as the cause of diseases classified elsewhere
CPT/HCPCS: 96372

== ENCOUNTER 2023-05-08 09:22 | Outpatient (CLI) | payer MEDICAID, SELFPAY ==
[2023-05-08] MEDS: GENTAMICIN 80 MG/2 ML VIAL 100 MG IM ×2 (09:27→20:26)
[2023-05-08 09:30] VITALS: BP 124/83; PULSE 84; RESP 18; TEMP 36.7; O2SAT 100
[2023-05-08 20:20] VITALS: BP 105/67; PULSE 89; RESP 16; TEMP 36.7; O2SAT 97
[2023-05-08 20:23] VITALS: BMI 21.0
[2023-05-08 20:31] VITALS: BP 105/67; PULSE 84; RESP 16; TEMP 36.7; O2SAT 97
== END 2023-05-08 23:59 ==
PROVIDERS: PCP Internal Medicine Adolescent Medicine; Visit Provider Internal Medicine Adolescent Medicine
DX: N39.0 Urinary tract infection, site not specified (principal); B96.5 Pseudomonas (aeruginosa) (mallei) (pseudomallei) as the cause of diseases classified elsewhere
CPT/HCPCS: 96372

== ENCOUNTER 2023-05-27 13:28 | Outpatient (CLI) | payer MEDICAID, SELFPAY | END 2023-05-27 23:59 | LOC: LAB.DROPOF 13:29 | PROVIDERS: PCP Internal Medicine Adolescent Medicine; Visit Provider Nurse Practitioner Family | DX: R82.90 Unspecified abnormal findings in urine (principal); B96.20 Unspecified Escherichia coli [E. coli] as the cause of diseases classified elsewhere | CPT/HCPCS: 87086 ==

== ENCOUNTER 2023-07-15 09:58 | Outpatient (CLI) | payer MEDICAID, SELFPAY ==
--- NOTE | 2023-07-15 10:03 | FL_ITS ---
FINAL REPORT CLINICAL HISTORY: .POSSIBLE FISTULA , RECURRENT UTI'S 51 sec 33.48 mgy FINDINGS: CYSTOGRAM HISTORY: Patient with suprapubic catheter and frequent UTIs. PROCEDURE: Contrast was introduced via suprapubic catheter into the urinary bladder by gravity drip. Spot and overhead films were obtained. FINDINGS: Assistant Press Operator Offset film is normal. The urinary bladder distends appropriately. There is no reflux of contrast. No extravasation of contrast was identified to indicate leak. Contrast does extend through the penile urethra. Flouoscopy time: 51 seconds Radiation exposure in Reference air Kerma:33.48 mGy IMPRESSION: Normal cystogram Films reviewed , interpreted and dictated by Dr. Navi Fierro Transcribed by Marco Hernandez PA-C. Reviewed, Interpreted and Dictated by Navi Fierro III, MD Transcribed by [employer] Authenticated and . [facility]
[2023-07-15] MEDS: DIATRIZOATE MEGLUMINE 18% 300ML BOTTLE 150 ML IJ (11:32)
== END 2023-07-15 23:59 ==
LOC: RAD 09:58
PROVIDERS: PCP Internal Medicine Adolescent Medicine; Visit Provider Internal Medicine Adolescent Medicine
DX: L98.8 Other specified disorders of the skin and subcutaneous tissue (principal)
CPT/HCPCS: 74430; Q9958

== ENCOUNTER 2024-08-13 13:47 | Outpatient (CLI) | payer MEDICAID, SELFPAY ==
--- OUTSIDE RECORDS SUMMARY | 2024-08-13 13:49 | XMS_ITS | Data Portability ---
Author Organization KARY YASMANY William ELSA CLOSED Address [address] [facility] [address] [place] [address] Assessment Encounter Date Assessment Date Assessment LastModified by Organization Details LastModified Time 04/30/2017 04/30/2017 SURGERY DATE: 04/30/2017 PREOPERATIVE DIAGNOSIS: Neurogenic bladder with urethral trauma POSTOPERATIVE DIAGNOSIS: Neurogenic bladder with urethral trauma false passage/strictur e. PROCEDURE: Cystoscopy and Cano catheter placement. ANESTHESIA: Local MAC. SURGEON: Gregg Rogers MD. BRIEF HISTORY: The patient is a 21-year-old young male with spinal bifida. His mother has been managing his urinary tract with intermittent catheterizations , had more difficulty with catheterization. He presented today for cystoscopy for further evaluation. PROCEDURE: After satisfactory positioning where he was carefully positioned into the dorsal lithotomy with stirrups, he was given sedation. Genitourinary area was prepped and draped in standard fashion. The 19-Somali cystoscope sheath was introduced with a 30 degree lens. Pendulous urethra was small, but easily accommodated the scope. Bulbous urethra was unremarkable. Prostatic urethra however, did have 3 areas of false passage with extension below the bladder neck. Two were on the left side, 1 was on the right side. His bladder neck was high, but non-obstructing and wide open. Upon entering the bladder, the bladder was otherwise unremarkable. I then passed a 0.035 Zip wire into the bladder through the cystoscope. The cystoscope was withdrawn and fashioned to 16 Somali latex free ute catheter placed this over the wire into the bladder. 10 mL were placed in the balloon, The bladder was irrigated and aspirated freely. We will leave his catheter for a month and then if he continues to have issues with catheterization, we will need to revisit replacement of a suprapubic catheter. [email or web address] Not available 05/01/2017 02:16:53 10/05/2021 10/05/2021 We reviewed the diagnosis of suprapubic catheter and association of chronic bacteriuria. Patient does not have specific systemic symptoms related to UTI. I would not encourage chronic antibiotics due to risk of resistance and other potential side effects. We discussed need for adequate hydration. Catheter exchange every 3 weeks, currently every 4, may help decrease UTI risk. Methenamine for UTI suppression. Topical vaginal antifungal cream for candidiasis of skin folds. [email or web address] Not available 10/07/2021 12:12:08 Plan of Treatment Reminders Order Date Submit Date Provider Last Modified By Organization Details Last Modified Time Details Appointments None recorded. Lab None recorded. Referral None recorded. Procedures None recorded. Surgeries None recorded. Imaging None recorded. Medication Orders clotrimazol e-betametha sone 1 %-0.05 % topical cream 2021 022 [employer], [address] [place] [address], [id number], 12:31:08 methenamine hippurate 1 gram tablet 2021 022 [employer], [address] [place] [address], [id number], 12:31:08 Patient TargetsNo targets recorded. Patient Instructions Encounter Date Encounter Id Patient Instructions Last Modified By Organization Details Last Modified Time 07/19/2019 [id number] neurogenic bladder: care instructions Not available 07/19/2019 12:04:05 Reason for Referral None Reported. Results Created Date Observation Date Name Description Value Unit Range Abnormal Flag Note LastModifiedBy Organization Detail LastModifiedTime 05/16/19 18 04/25/2017 CT, abdom en + pelvi s, w/o contr ast No observ ation record ed. [facility] ([facility]) [address] [place] [address] [address], [place], [address], 05/16/2017 16:58:32 02/11/20 18 02/10/2018 , abhi er No observ ation record ed. [email or web address] [facility] [address] [place] [address], [id number], 02/11/2018 12:18:14 02/11/20 18 02/10/2018 US, retro perit oneum , compl ete No observ ation record ed. [address], [place], [address], 02/11/2018 12:18:49 01/26/20 19 11/16/2018 US, abdom en, compl ete No observ ation record ed. [address], [place], [address], 01/25/2019 12:17:02 Result Notes None recorded. Procedures Surgical History Date Name Laterality Status Provider Name and Address Organization Details Recorded Time 8 ASPIRATION, BLADDER, INSERTION OF SUPRAPUBIC CATHETER (SURG) [facility]13[facility] 13:52:42 7 ASPIRATION, BLADDER, INSERTION OF SUPRAPUBIC CATHETER (SURG) completed GREGG HARRISON MD [address] [place] [address], [phone], [facility] 09/02/2016 12:34:34 Imaging Results Imaging Date Name Status LastModified by [facility] Details LastModified Time 04/25/2017 CT, abdomen + pelvis, w/o contrast completed [facility] (Scheduling) [address] [place] [address] [address], [place], [address], 05/16/2017 16:58:32 02/10/2018 US, bladder [place] [address] [facility] [address] [place] [address] [address] [place], [id number], 02/11/2018 12:18:14 02/10/2018 US, retroperitone um, complete completed [address], [place], [address], 02/11/2018 12:18:49 11/16/2018 US, abdomen, complete completed [facility] [address], [place], [address], 01/25/2019 12:17:02 Procedure Notes None recorded. Medical Equipment None Reported. Allergies Allergen ID Allergen Name Allergen Category Reaction Reaction Severity Criticality Documentation Date Start Date Code Code System Note Provider Name and Address Organization Details Recorded Time 554201 latex environme nt,medica tion Not available Not available Not available 07/19/2019 55446 91 RxNorm Stephanie Marquez [facility] 0 11:36:14 452978 banana extract food,medi cation Not available Not available Not available 07/19/2019 94961 9 RxNorm [facility] 0 11:36:20 Medications Name Sig Start Date Stop Date Status Note LastModified by Organization Details LastModified Time cefuroxime axetil 250 mg tablet Take 1 tablet every 12 hours by oral route for 14 days. 10/05 completed Not Available Not Available Not Available Augmentin 250 mg-62.5 mg/5 mL oral suspension Take 10 mL every 12 hours by oral route as directed. 10/05 completed Not Available Not Available Not Available methenamine hippurate 1 gram tablet Take 1 tablet twice a day by oral route for 90 days. 2021 active Not Available Not Available Not Avai lable Diflucan 100 mg tablet Take 1 tablet every day by oral route for 7 days. 07/18 completed Not Available Not Available Not Available doxycycline monohydrate 100 mg capsule Take 1 capsule twice a day by oral route for 14 days. 10/05 completed Not Available Not Available Not Available clotrimazol e-betametha sone 1 %-0.05 % topical cream APPLY TO THE AFFECTED AND SURROUNDI NG AREAS OF SKIN BY TOPICAL ROUTE 2 TIMES PER DAY IN THE MORNING AND EVENING FOR 2 WEEKS 2021 active Not Available Not Available Not Avai lable Levaquin 500 mg tablet Take 1 tablet every 24 hours by oral route for 10 days. 07/18 completed Not Available Not Available Not Available cefuroxime axetil 500 mg tablet Take 1 tablet every 12 hours by oral route for 10 days. 10/05 completed Not Available Not Available Not Available Cipro 500 mg/5 mL oral suspension Take 5 mL every 12 hours by oral route for 15 days. 07/18 completed Not Available Not Available Not Available Vitals Date Recorded Body weight Provider Name an d Address Organization Details Last Updated DateTime 07/19/2019 94415.16 g Stephanie Marquez [facility] 07/19/2019 11:36:08 Date Recorded Body weight Provider Name an d Address Organization Details Last Updated DateTime 10/05/2021 54347.16 g Jerilyn Mcelroy [facility] 0 10/05/2021 11:53:59 Social History Question Answer Notes LastModified by Organizat ion Details LastModified Time Tobacco Smoking Status Never Smoker Stephanie Marquez [facility] 07/19/2019 11:36:42 What Is Your Level Of Alcohol Consumption? None Information not available 07/19/2019 How Much Tobacco Do You Chew? None Information not available 07/19/2019 Sex: Unknown Functional Status None recorded. Mental Status None recorded. Family History Relationship Description Onset Age of this Age Resolved Age Notes LastModified by Organization Details LastModified Time Father No current problems or disability [email or web address] Not available 10/05 11:54:27 Mother No current problems or disability [email or web address] Not available 10/05 11:54:27 Medical History No medical history recorded. Past Encounters Encounter ID Performer Location Encounter Start Date Encounter Closed Date Diagnosis/Indication Diagnosis SNOMED-CT Code Diagnosis ICD10 Code Diagnosis Note [id number] GREGG HARRISON MD SURGERY SCHEDULE [address] [place] [address] 04/30/2017 09:50:01 04/30/2017 09:55:53 [id number] GREGG HARRISON MD [facility] [address] [facility] [address] [place] [address] 07/19/2019 11:00:47 07/19/2019 11:47:58 Neurogenic urinary bladder 421720971 N31.9 continue suprapubic catheter. Chronic cystitis 1377838 2 N30.20 plan as above. His mother will contact me for results. [id number] EFRAÍN GONZALEZ MD [facility] [address] [place] [address] 10/05/2021 11:25:55 10/05/2021 12:21:17 Candidiasis of skin 48050824 B37.2 Recurrent urinary tract infection 517263246 N39.0 Neurogenic urinary bladder 442488441 N31.9 Health Concerns Section Related Observation LastModified by Organization Detai ls LastModified Time None Recorded Concern Status LastModified by Organization Details LastModified Time None Recorded Advance Directives Directive None Recorded Payers Encounter Date Sequence Insurance Name Policy Number Policy Gale Covered Member ID Gale Member ID Guarantor Name 04/30/2017 1 [place] [id number] Aaron Blake [id number] Bernardo Blake 04/30/2017 1 [place]TRADITIO NAL Bernardo Blake [id number] Bernardo Blake 07/19/2019 1 [place] [id number] Aaron Blake [id number] Bernardo Blake 07/19/2019 1 [place]ADIT[place] NAL Bernardo Blake [id number] Bernardo Blake 10/05/2021 1 [place]/TRADIT[place] NAL Bernardo Blake [id number] Bernardonarcisa Blake Notes Date Note Type Note Provider Name and Address Organization Details Recorded Time 07/19/2019 text/html patient is typically followed at the [facility]. He is 23 years of age and has spina bifida. He has a neurogenic bladder managed with a chronic suprapubic catheter which was placed about 2 years ago. He's recently had issues with recurrent symptomatic cystitis. He currently is on Ceftin. His most recent urine culture was enterococcus. He also developed a perineal/scrotal abscess which his mother states drain spontaneously. He previously performed intermittent catheterization. Apparently during that episode he did have a large amount of purulent drainage from the urethra she has 1 more dose of Ceftin on hand. For the last 3 weeks she has been irrigating his bladder with dilute vinegar once per day. I suggest she continue with that. We will send his urine specimen today for genetic urinary testing. GREGG HARRISON MD [address] [place] [address], [phone], [facility] 07/19/2019 12:04:24 10/05/2021 text/html 25-year-old male , patient of Dr. Harrison, in the office for acute evaluation for concern of recurrent urinary infections. He has neurogenic bladder related to history of spina bifida. He has chronic suprapubic catheter. 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 He has malodorous urine. No specific systemic symptoms of UTI. Mother states he has recurrent yeast within skin fold of lower abdomen. EFRAÍN GONZALEZ MD [address] [place] [address], [phone], [facility] 10/07/2021 12:12:25
== END 2024-08-13 23:59 | disposition home or self-care (01) ==
LOC: LAB 13:47
PROVIDERS: PCP Internal Medicine Adolescent Medicine; Visit Provider Internal Medicine Adolescent Medicine
DX: N39.0 Urinary tract infection, site not specified (principal); B96.5 Pseudomonas (aeruginosa) (mallei) (pseudomallei) as the cause of diseases classified elsewhere
CPT/HCPCS: 87086; 87088; 87186

== ENCOUNTER 2025-03-23 14:30 | Outpatient (CLI) | payer MEDICAID, SELFPAY ==
--- OUTSIDE RECORDS SUMMARY | 2004-08-20 23:00 | XMS_ITS | Encounter Summary ---
Author Organization [facility] Address [address] [place] [address] Care Team Providers Care Principal Automation Engineer Name Role Phone Unavailable Primary Care Provider Unavailabl e Encounter Details Date Type Department Care Team (Late st Contact Info) Description 08/21/2004 Hospital Encounter [facility] Division of Nephrology [address] [place] [phone] Social History Tobacco Use Types Packs/Day [...] Notes * Consent Other - Edt, Audit [place] - 05/10/2009 11:43 AM EST documented in this encounter Plan of Treatment Not on file documented as of this encounter Visit Diagnoses Not on filedocumented in this encounter
--- OUTSIDE RECORDS SUMMARY | 2004-09-27 23:00 | XMS_ITS | Encounter Summary ---
Author Organization [facility] Address [facility] [place] [address] Care Team Providers Care Gm/Svp Global Publisher Business Name Role Phone Unavailable Primary Care Provider Unavailabl e Encounter Details Date Type Department Care Team (Late st Contact Info) Description 09/28/2004 Hospital Encounter [facility] Department of Radiology [address] [place] [phone] Social History Tobacco Use Types Packs/Day [...] Notes * Consent Other - Edt, Audit [place] - 05/10/2009 11:43 AM EST documented in this encounter Plan of Treatment Not on file documented as of this encounter Visit Diagnoses Not on filedocumented in this encounter
--- OUTSIDE RECORDS SUMMARY | 2004-10-01 23:00 | XMS_ITS | Encounter Summary ---
Author Organization [facility] Address [facility] [place] [address] Care Team Providers Care Steel Molder Name Role Phone Unavailable Primary Care Provider Unavailabl e Encounter Details Date Type Department Care Team (Late st Contact Info) Description 10/02/2004 Hospital Encounter [facility] Department of Radiology [address] [place] [phone] Social History Tobacco Use Types Packs/Day [...] Notes * Consent Other - Edt, Audit [place] - 05/10/2009 11:43 AM EST documented in this encounter Plan of Treatment Not on file documented as of this encounter Visit Diagnoses Not on filedocumented in this encounter
--- OUTSIDE RECORDS SUMMARY | 2005-06-21 | XMS_ITS | Encounter Summary ---
Author Organization [facility] Address [address] [place] [address] Care Team Providers Care Circular Tank Cooper Name Role Phone Unavailable Primary Care Provider Unavailabl e Encounter Details Date Type Department Care Team (Late st Contact Info) Description 06/21/2005 Hospital Encounter [facility] Department of Radiology [address] [place] [phone] Social History Tobacco Use Types Packs/Day [...]
--- OUTSIDE RECORDS SUMMARY | 2005-08-05 23:00 | XMS_ITS | Encounter Summary ---
Author Organization [facility] Address [address] [place] [address] Care Team Providers Care Front Office Supervisor Name Role Phone Unavailable Primary Care Provider Unavailabl e Encounter Details Date Type Department Care Team (Late st Contact Info) Description 08/06/2005 Hospital Encounter [facility] Department of Radiology [address] [place] [phone] Social History Tobacco Use Types Packs/Day [...]
--- OUTSIDE RECORDS SUMMARY | 2005-09-16 23:00 | XMS_ITS | Encounter Summary ---
Author Organization [facility] Address [address] [place] [address] Care Team Providers Care Research Program Assistant Name Role Phone Unavailable Primary Care Provider Unavailabl e Encounter Details Date Type Department Care Team (Late st Contact Info) Description 09/17/2005 Hospital Encounter [facility] Department of Radiology [address] [place] [phone] Social History Tobacco Use Types Packs/Day [...]
--- OUTSIDE RECORDS SUMMARY | 2005-09-16 23:00 | XMS_ITS | Encounter Summary ---
Author Organization [facility] Address [address] [place] [address] Care Team Providers Care Five Roll Refiner Batch Mixer Name Role Phone Unavailable Primary Care Provider Unavailabl e Encounter Details Date Type Department Care Team (Late st Contact Info) Description 09/17/2005 Hospital Encounter [facility] Division of Cardiology [address] [place] [phone] Social History Tobacco Use Types Packs/Day [...]
--- OUTSIDE RECORDS SUMMARY | 2006-05-16 | XMS_ITS | Encounter Summary ---
Author Organization [facility] Address [address] [place] [address] Care Team Providers Care Nuclear Auxiliary Operator Name Role Phone Unavailable Primary Care Provider Unavailabl e Encounter Details Date Type Department Care Team (Late st Contact Info) Description 05/16/2006 Hospital Encounter [facility] Department of Radiology [address] [place] [phone] Social History Tobacco Use Types Packs/Day [...]
--- OUTSIDE RECORDS SUMMARY | 2025-03-23 15:56 | XMS_ITS | Clinical Summary ---
Author Organization [facility] Address [address] [place] [address] Care Team Providers Care Singing Teacher Name Role Phone Job Delgado MD Primary Care Provider Source Comments [facility] is fully rolled out with thefollowing exceptions:[facility] Allergies Active Allergy Reactions Criticality Noted Date Comments Banana Other 07/21/2007 Latex precaution Latex Anaphylaxis,Swelling 07/15/2007 Medications sulfamethoxazole -trimethoprim (BACTRIM SS) 400-80 MG tabletIndication s:Prophylactic treatment Take 1 Tab (80 mg total) by mouth every 24 hours. 30 Tab 12 01/11/2014 Active cefdinir (OMNICEF) 300 MG capsule Active amoxicillin (AMOXIL) 250 MG/5ML suspensionIndica tions:Confirmed infection Take 10 mL (500 mg total) by mouth every 8 hours. 300 mL 1 05/24/2014 Active Active Problems Problem Noted Date Diagnosed Date Recurrent UTI 01/05/2013 Kyphoscoliosis 10/09/2010 Restrictive lung disease 10/09/2010 Neurogenic bladder, NOS 08/15/2009 Overview (03/01/2025): Updated as part of IMO process, approved by . Spina bifida 08/15/2009 Family History Medical History Relation Name Comments Cancer Paternal Grandfather Congenital Heart Defect Paternal Grandfather Diabetes Mellitus Paternal Grandfather Gastrointestinal Disease Paternal Grandfather Heart Problems Paternal Grandfather High Blood Pressure Paternal Grandmother Relation Name Status Comments Paternal Grandfather Paternal Grandmother Social History Tobacco Use Types Packs/Day Years Used Date Smoking Tobacco: Never Smokeless Tobacco: Never Alcohol Use Standard Drinks/Week Comments No 0 (1 standard drink = 0.6 oz pur e alcohol) Sex and Gender Information Value Date Recorded Sex Assigned at Not on file Legal Sex Male 5:13 AM EST Gender Identity Not on file Sexual Orientation Not on file Last Filed Vital Signs Vital Sign Reading Time Taken Comments Blood Pressure 116/75 01/05/2013 10:17 AM EDT Pulse 80 05/24/2014 10:21 AM EST Temperature 36.2 C (97.2 F) 11/08/2010 8:05 AM EDT Respiratory Rate 24 05/24/2014 10:2 1 AM EST Oxygen Saturation 98% 11/08/2010 4:05 AM EDT Inhaled Oxygen Concentration - - Weight 47.6 kg (104 lb 15.7 oz) 015 10:21 AM EST Height 133.8 cm (4' 4.68 ) 05/24/2014 1 0:21 AM EST Body Mass Index 26.6 05/24/2014 10:21 AM EST Plan of Treatment Health Maintenance Due Date Last Done Comments MMR IMMUNIZATION (1 of 1 - S tandard series) 1997 DTAP/Tdap/Td IMMUNIZATION (1 - Tdap) 12/29/2003 VARICELLA IMMUNIZATION (1 of 2 - 13+ 2-dose series) 2009 HEPATITIS B IMMUNIZATION (1 of 3 - 19+ 3-dose series) 12/29/2015 HPV IMMUNIZATION (1 - 3-dose SCDM series) 12/29/2023 AMB SEASONAL FLU VACCINE (#1) 01/03/2025 COVID-19 Vaccine ( - 2024-2 6 season) 2025 HIB IMMUNIZATION Aged Out No longer e ligible based on patient's age to complete this topic IPV IMMUNIZATION Aged Out No longer e ligible based on patient's age to complete this topic MCV4 IMMUNIZATION Aged Out No longer eligible based on patient's age to complete this topic MENINGOCOCCAL B VACCINE Aged Out No l onger eligible based on patient's age to complete this topic PNEUMOCOCCAL IMMUNIZATION Aged Out No longer eligible based on patient's age to complete this topic Respiratory Syncytial Virus (RSV) <20mo Aged Out No longer eligible b ased on patient's age to complete this topic Medical Devices Implanted Type Area Thread Marker Device Identifier Shelf Expiration Date Model / Serial / Lot Graft Duragen Plus 1x3 - [id number] Implanted:Qt y: 1 on 11/02/2010 at [facility] Human Tissue N/A: Back [employer] 07/03/2013 DP-[id number] / N/A / [id number] Bone Graft Infuse Lg - [id number] Implanted:Qt y: 1 on 11/02/2010 at [facility] Human Tissue N/A: Back [employer] 02/02/2013 [id number] / N/A / [id number] Puty Dbx-Dbm 10ml - [id number] Implanted:Qt y: 2 on 11/02/2010 at [facility] Human Tissue [employer] 02-3110 / / Wire [place] Dbl 18g - [id number] Implanted:Qt y: 10 on 11/02/2010 at [facility] Neurosurgical N/A: Back [employer] [id number] / [id number] / [id number] Renard [place] Spinal Prebent 1/4in - [id number] Implanted:Qt y: 2 on 11/02/2010 at [facility] Neurosurgical N/A: Back [employer] 11/03/2011 [id number] / N/A / N/A 5f Sfx Cross 6wect Implanted:Qt y: 1 on 11/02/2010 at [facility] Orthopedic N/A: Back 11/03/2011 [id number] / N/A / N/A Wire [place] Button 20g - [id number] Implanted:Qt y: 1 on 11/02/2010 at [facility] Orthopedic N/A: Back [employer] 11/03/2011 [id number] / N/A / N/A Insurance LULI GUIDO NON-TRADITIONAL Member Subscriber Plan / Payer (Ef fective 2010-Present) Name:Bernardo Ochoa Relation to Subscriber:Child Name:POLLY OCHOA Date of :1968 (Home) [place]: [place] [address] Payer ID:[id number] (NAIC) Type:O Address: [address] MEDICAID Care Teams Singing Teacher Relationship Specialty Start Date End Date Job Delgado MD [id number] [address] [place] [address] PCP - General External Family Practice 01/07/14
--- OUTSIDE RECORDS SUMMARY | 2025-03-23 15:56 | XMS_ITS | Clinical Summary ---
Author Organization [facility] Address [address] [place] [address] Care Team Providers Care Anglesmith Name Role Phone Unavailable Primary Care Provider Unavailabl e Social History Tobacco Use Types Packs/Day Years Used Date Smoking Tobacco: Never Assessed Sex and Gender Information Value Date Recorded Sex Assigned at Not on file Legal Sex Male 4:16 PM EST Gender Identity Not on file Sexual Orientation Not on file Plan of Treatment Health Maintenance Due Date Last Done Comments Hepatitis B (HepB) Vaccine ( 1 of 3 - 19+ 3-dose series) 12/29/2015 Tdap/Td Vaccine >11 yo (1 - Tdap) 12/29/2015 HPV Vaccine (1 - 3-dose SCDM series) 12/29/2023 Annual SDOH Screening 05/05/2024 Influenza Vaccine (#1) 2025 Haemophilus Influenzae Type B (Hib) Vaccine Aged Out No longer eligible b ased on patient's age to complete this topic Hepatitis A (HepA) Vaccine Aged Out N o longer eligible based on patient's age to complete this topic Meningococcal ACWY Aged Out No longer eligible based on patient's age to complete this topic Pneumococcal Vaccines 6-49 yo Risk Aged Out No longer eligible based on patient's age to complete this topic Polio (IPV) Aged Out No longer eligi ble based on patient's age to complete this topic Rotavirus (RV) Vaccine Aged Out No lo nger eligible based on patient's age to complete this topic
--- OUTSIDE RECORDS SUMMARY | 2025-03-23 15:56 | XMS_ITS | Encounter Summary ---
Author Organization [facility] Address [address] [place] [address] Care Team Providers Care Clinical Support Nurse Name Role Phone Job Delgado MD Primary Care Provider [phone] Encounter Details Date Type Department Care Team (Late st Contact Info) Description 06/01/2007 Office Visit [facility] Division of Pediatric Urology [address] [place] [phone] oWo Lerner Jr., MD/MPH Urology [address] [place] [address] Neurogenic Bladder, NOS Social History Tobacco Use Types Packs/Day Years Used Date Smoking Tobacco: Never Assessed Sex and Gender Information Value Date Recorded Sex Assigned at Not on file Legal Sex Male 5:13 AM EST Gender Identity Not on file Sexual Orientation Not on file documented as of this encounter Procedure Notes * Joey Industrial Tractor Driver - 11/26/2007 2:51 PM EDT documented in this encounter Plan of Treatment Not on file documented as of this encounter Procedures Procedure Name Priority Date/Time Associated Diagnosis Comments URINE CULTURE Routine 06/01/2007 10:00 AM EST URINALYSIS CHEMICAL ONLY Routine 06/01/2007 10:00 AM EST documented in this encounter Results * CULTURE, URINE (06/01/2007 10:00 AM EST) URINE CULTURE Source: CATHETERIZED URINE, IN AND OUT [facility] URINE CULTURE Procedure: URINE CULTURE Collected: 999 [facility] URINE CULTURE Received: 1025 [facility] URINE CULTURE FINAL REPORT [facility] URINE CULTURE FINAL REPORT 113 [id number] [facility] URINE CULTURE NO GROWTH <1,000 CFU/ML [facility] 06/01/2007 10:0 0 AM EST 06/01/2007 10:00 AM EST Woo Lerner Jr., MD/MPH MICRO CULTURE ORDERABLES Final Result Performing Organization Address [facility] de Phone Number [facility] * URINALYSIS CHEMICAL ONLY (06/01/2007 10:00 AM EST) U APPEARANCE CLEAR CLEAR [facility] U COLOR YELLOW [facility] SPECIFIC GRAVITY BY REFRACTOMETRY 1.023 1.005 - 1.030 [facility] Comment: (02/19/01 -- Current) SPECIFIC GRAVITY REFERENCE RANGE 1.005 - 1.030 U PH 6.0 5.0 - 8.0 [facility] U PROTEIN NEGATIVE NEGATIVE MG/DL [facility] U GLUCOSE NEGATIVE NEGATIVE MG/DL [facility] U KETONES NEGATIVE NEGATIVE MG/DL [facility] U BILI NEGATIVE NEGATIVE [facility] U BLOOD NEGATIVE NEGATIVE [facility] U NITRITE NEGATIVE NEGATIVE [facility] U UROBILINOGEN <2.0 0.2 - 1.0 EU/DL [facility] U LEUKOCYTE GLORIA NEGATIVE NEGATIVE [facility] 06/01/2007 10:0 0 AM EST 06/01/2007 10:00 AM EST Woo Lerner Jr., MD/MPH URINE ORDERABL ES Final Result Performing Organization Address [facility] Co de Phone Number [facility] documented in this encounter Visit Diagnoses Diagnosis Neurogenic bladder, NOS documented in this encounter Care Teams Clinical Support Nurse Relationship Specialty Start Date End Date Job Delgado MD [address] [facility] [address] [place] [address] PCP - General External Family Practice 01/07/14 documented as of this encounter
--- OUTSIDE RECORDS SUMMARY | 2025-03-23 15:56 | XMS_ITS | Encounter Summary ---
Author Organization [facility] Address [facility] [place] [address] Care Team Providers Care Atomic Welder Name Role Phone Job Delgado MD Primary Care Provider [phone] Encounter Details Date Type Department Care Team (Late st Contact Info) Description 10/23/2010 Abstract [facility] Division of Pediatric Neurosurgery [address] [place] [phone] Magali Santa, RN Social History Tobacco Use Types Packs/Day Years Used Date Smoking Tobacco: Never Assessed Sex and Gender Information Value Date Recorded Sex Assigned at Not on file Legal Sex Male 5:13 AM EST Gender Identity Not on file Sexual Orientation Not on file documented as of this encounter Progress Notes * Magali Santa RN - 10/23/2010 3:44 PM EDT Clinic note prep 10-23-2010 Bernardo is a 14 year old male with history of spina bifida at T9 and was found to have a severe kyphotic deformity which is now followed by Dr. Rosa at [facility]. Bernardo has had skin grafts in the region of the lumbo sacral kyphotic deformity. His PMH/PSH is significant for thoracic myelomeningocele, shunted hydrocephalus, Chiari II malformation, agenesis of the corpus callosum, strabismus, situational anxiety and osteoporosis. He has undergone approxiamaly four shunt revisions in the first year of life and not since that time. He has never undergone a Chairi decompression nor tethered cord release following the initial repair of his myelomeningocele. REVIEW OF SYSTEMS Review of systems revealed the following in addition to any already discussed in the HPI: Constitutional: none Skin: surgical scars Eyes: nystagmus ENT:none Lungs: none Cardiovascular: none GI: neurogenic bowel /renal: neurogenic bladder, CIC program Musculoskeletal: nonambulatory and scoliosis paraplegia Neurologic: developmental delay Psychiatric: anxiety disorder Hematologic/Allergic/Endocrinologic: none documented in this encounter Plan of Treatment Not on file documented as of this encounter Visit Diagnoses Not on filedocumented in this encounter Care Teams Atomic Welder Relationship Specialty Start Date End Date Job Delgado MD [address] [facility] [address] [place] [address] PCP - General External Family Practice 01/07/14 documented as of this encounter
--- OUTSIDE RECORDS SUMMARY | 2025-03-23 15:56 | XMS_ITS | Data Portability ---
Author Organization [facility] YASMANY [facility] Address [address] [facility] [address] [place] [address] Assessment Encounter Date Assessment Date Assessment LastModified [...] prepped and draped in standard fashion. The 19-Tunisian cystoscope sheath was introduced with a 30 [...] cystoscope was withdrawn and fashioned to 16 Tunisian latex free [place] catheter placed this over the wire into [...] antifungal cream for candidiasis of skin folds. [email or web address] Not available 10/07/2021 12:12:08 Plan of Treatment Reminders Order Date Submit Date Provider Last Modified By Organization Details Last Modified Time Details Appointments None recorded. Lab None recorded. Referral None recorded. Procedures None recorded. Surgeries None recorded. Imaging None recorded. Medication Orders clotrimazol e-betametha sone 1 %-0.05 % topical cream 2021 022 [employer], [address] [place] [address], [id number], 12:31:08 methenamine hippurate 1 gram tablet 2021 022 [employer], [address] [place] [address], [id number], 12:31:08 Patient TargetsNo targets recorded. Patient Instructions Encounter Date Encounter Id Patient Instructions Last Modified By Organization Details Last Modified Time 07/19/2019 [id number] neurogenic bladder: care instructions [email or web address] Not available 07/19/2019 12:04:05 Reason for Referral None Reported. Results Created Date Observation Date Name Description Value Unit Range Abnormal Flag Note LastModifiedBy Organization Detail LastModifiedTime 05/16/19 18 04/25/2017 CT, abdom en + pelvi s, w/o contr ast No observ ation record ed. [facility] ([facility]) [address], [place], [address], 05/16/2017 16:58:32 02/11/20 18 02/10/2018 abhi GARCIA er No observ ation record ed. [email or web address] [facility] [address] [place] [address] [address], [place], [id number], 02/11/2018 12:18:14 02/11/20 18 02/10/2018 US, retro perit oneum , compl ete No observ ation record ed. [email or web address] [address], [place], [address], 02/11/2018 12:18:49 01/26/20 19 11/16/2018 US, abdom en, compl ete No observ ation record ed. [facility] [address], [place], [address], 01/25/2019 12:17:02 Result Notes None recorded. Procedures Surgical History Date Name Laterality Status Provider Name and Address Organization Details Recorded Time 8 ASPIRATION, BLADDER, INSERTION OF SUPRAPUBIC CATHETER (SURG) completed Vineet Craft [facility] 06/13/2017 13:52:42 7 ASPIRATION, BLADDER, INSERTION OF SUPRAPUBIC CATHETER (SURG) completed GREGG HARRISON MD [address] [place] [address], [phone], [facility] 09/02/2016 12:34:34 Imaging Results None recorded. Procedure Notes None recorded. Medical Equipment None Reported. Allergies Allergen ID Allergen Name Allergen Category Reaction Reaction Severity Criticality Documentation Date Start Date Code Code System Note Provider Name and Address Organization Details Recorded Time 434858 latex environme nt,medica tion Not available Not available Not available 07/19/2019 23074 91 RxNorm Stephanie Bentleyroseann [facility] 0 11:36:14 526322 banana extract food,medi cation Not available Not available Not available 07/19/2019 13303 9 RxNorm Stephanie Bentleyroseann [facility] 0 11:36:20 Medications Name Sig Start Date [...] Address Organization Details Last Updated DateTime 07/19/2019 28733.16 g Stephanie Jimmy [facility] 07/19/2019 11:36:08 Date Recorded Body weight Provider Name an d Address Organization Details Last Updated DateTime 10/05/2021 75303.16 g Jerilyn Navi [facility] 0 10/05/2021 11:53:59 Social History Question Answer Notes LastModified by Organizat ion Details LastModified Time Tobacco Smoking Status Never Smoker Stephanie Marquez [facility] 07/19/2019 11:36:42 How Much Tobacco Do You Chew? None Information not available 07/19/2019 Sex: Unknown Functional Status Question Answer Note LastModified by Organization D etails LastModified Time What is your level of alcohol consumption? None Information not available 07/19/2019 Mental Status None recorded. Family History Relationship Description Onset Age of this Age Resolved Age Notes LastModified by Organization Details LastModified Time Father No current problems or disability [email or web address] Not available 10/05 11:54:27 Mother No current problems or disability [email or web address] Not available 10/05 11:54:27 Medical History No medical history recorded. Past Encounters Encounter ID Performer Location Encounter Start Date Encounter Closed Date Diagnosis/Indication Diagnosis SNOMED-CT Code Diagnosis ICD10 Code Diagnosis IMO Codes Diagnosis Note [id number] GREGG HARRISON MD SURGERY SCHEDULE [address] [place] [address] 04/30/2017 09:50:01 04/30/2017 09:55:53 [id number] MD ALINE MENARD [facility] [address] [facility] [place] [phone] 07/19/2019 11:00:47 07/19/2019 11:47:58 Neurogenic urinary bladder 862863836 N31.9 continue suprapubic catheter. Chronic cystitis 6545017 2 N30.20 plan as above. His mother will contact me for results. [id number] MD ALINE SWEENEY [facility] [address] [facility] [place] [address] 10/05/2021 11:25:55 10/05/2021 12:21:17 Candidiasis of skin 84130807 B37.2 Recurrent urinary tract infection 910360400 N39.0 Neurogenic urinary bladder 123564284 N31.9 Health Concerns Section Related Observation LastModified by Organization Detai ls LastModified Time None Recorded Concern Status LastModified by Organization Details LastModified Time None Recorded Advance Directives Directive None Recorded Payers Insurance Date Sequence Insurance Name Policy Number Policy Gale Covered Member ID Gale Member ID Guarantor Name 12/03/2021 1 [place] [facility] - FFS/TRADITIO NAL Bernardo Blake [id number] Bernardo Blake 10/05/2021 1 [place] [id number] Aaron Blake [id number] Bernardo Blake Notes Date Note Type Note Provider Name and Address Organization Details Recorded Time 07/19/2019 text/html patient is typically followed at the [facility]. He is 23 years of age [...] for genetic urinary testing. GREGG HARRISON MD [address] [place] [address], [phone], [facility] 07/19/2019 12:04:24 10/05/2021 text/html 25-year-old male, patient of Dr. Harrison, in the office [...] fold of lower abdomen. EFRAÍN GONZALEZ MD [address] [place] [address], [phone], [facility] 10/07/2021 12:12:25
--- OUTSIDE RECORDS SUMMARY | 2025-03-23 15:56 | XMS_ITS | Encounter Summary ---
Author Organization [facility] Address [facility] [place] [address] Care Team Providers Care Sanitation Director Name Role Phone Job Delgado MD Primary Care Provider [phone] Encounter Details Date Type Department Care Team (Late st Contact Info) Description 10/28/2012 Abstract [facility] Division of Pediatric Urology [address] [place] [phone] Child Welfare Manager, [facility] Social History Tobacco Use Types Packs/Day Years Used Date Smoking Tobacco: Never Assessed Alcohol Use Standard Drinks/Week Comments No 0 (1 standard drink = 0.6 oz pur e alcohol) Sex and Gender Information Value Date Recorded Sex Assigned at Not on file Legal Sex Male 5:13 AM EST Gender Identity Not on file Sexual Orientation Not on file documented as of this encounter Progress Notes * Cookie Reid RN, SURGICAL SPECIALIST - 10/28/2012 12:25 PM EDT Reviewed, see phone encounter from 10-15-2012 documented in this encounter Plan of Treatment Not on file documented as of this encounter Procedures Procedure Name Priority Date/Time Associated Diagnosis Comments EXTERNAL LAB URINE CULTURE Routine 10/15/2012 2:38 PM EDT EXTERNAL LAB CBC, DIFF, PLATELETS Routine 10/15/2012 2:38 PM EDT documented in this encounter Results * (ABNORMAL) External Lab CBC, Diff, Platelets (10/15/2012 2:38 PM EDT) WBC EXT 19.2(A) RBC EXT 5.89 HGB EXT 16.4 HCT EXT 49.7 MCV LEVEL EXT 84.3 MCH LEVEL EXT 27.8 MCHC LEVEL EXT 33.0 RDW EXT 14.4 PLATELETS EXT 353 BANDS EXT SEGS EXT LYMPHS EXT BLASTS EXT LYMPH ATYPICAL EXT BASOPHILS EXT NEUTROPHIL ABSOLUTE EXT MONOCYTE EXT EOSINOPHIL EXT LYMPHS % EXT LAB EOSINOPHIL % EXT LAB MONOCYTE % EXT LAB BASOPHILS % EXT LAB RBC NUCLEATED EXT PERFORMING LAB IN NARRATIVE No Urine specimen obtained by clean catch procedure (specimen) 10/15/2012 2:38 PM EDT [facility] Provider EXTERNAL LAB ORDERABLES Gricelda l Result * External Lab Urine Culture (10/15/2012 2:38 PM EDT) URINE CULTURE EXT >100,000 Comment:gram pos cocci PERFORMING LAB IN NARRATIVE No Urine specimen obtained by single catheterization of urinary bladder (specimen) 10/15/2012 2:38 PM EDT Narrative Organism Antibiotic Method Susceptibility Gram Positive Cocci Gentamicin Sensitive Gram Positive Cocci Nitrofurantoin Sensitive Gram Positive Cocci Oxacillin Sensitive Gram Positive Cocci Rifampin Sensitive Gram Positive Cocci Vancomycin Sensitive Historical Provider EXTERNAL LAB ORDERABLES Gricelda l Result documented in this encounter Visit Diagnoses Not on filedocumented in this encounter Care Teams Sanitation Director Relationship Specialty Start Date End Date Job Delgado MD [facility] [place] [address] [address] [place] [address] PCP - General External Family Practice 01/07/14 documented as of this encounter
--- OUTSIDE RECORDS SUMMARY | 2025-03-23 15:56 | XMS_ITS | Encounter Summary ---
Author Organization [facility] Address [facility] [place] [address] Care Team Providers Care Ballistician Name Role Phone Job Delgado MD Primary Care Provider [phone] Encounter Details Date Type Department Care Team (Late st Contact Info) Description 12/17/2012 Abstract [facility] Division of Pediatric Urology [address] [place] [phone] Fingernail Technician, [facility] Social History Tobacco Use Types Packs/Day [...] Priority Date/Time Associated Diagnosis Comments EXTERNAL LAB URINES Routine 12/08/2012 documented in this encounter Results * (ABNORMAL) External Lab Urines (12/08/2012) U APPEARANCE EXT yellow U COLOR EXT sl cloudy U GLUCOSE EXT neg U KETONES EXT 1+(A) U SPEC GRAV EXT 1.025 U PH EXT 7.0 U PROTEIN EXT neg U BILI EXT neg U BLOOD EXT trace(A) U NITRITE EXT neg U UROBILINOGEN EXT 1.0 U LEUKOCYTE GLORIA EXT neg U WBC EXT U RBC EXT SODIUM, UR EXT U POSTASSIUM EXT CHLORIDE, UR EXT CREATININE UR EXT CALCIUM, UR EXT PHOSPHORUS, UR EXT MICROALBUMIN, URINE EXT 751648L, UR EXT PROTEIN, 24 HR UR EXT GFR PER CYSTATIN C EXT CREATININE CLEAR EXT ALBUMIN, URINE EXT CREATININE, RANDOM URINE EXT CREATININE, 24 HOUR URINE EXT ALBUMIN/CREATINI NE RATIO, URINE EXT URINE VOLUME EXT PERFORMING LAB IN NARRATIVE No Urine specimen (specimen) 12/08/2012 us Historical Provider EXTERNAL LAB ORDERABLES Gricelda l Result documented in this encounter Visit Diagnoses Not on filedocumented in this encounter Care Teams Ballistician Relationship Specialty Start Date End Date Job Delgado MD [address] [facility] [address] [place] [id number] PCP - General External Family Practice 01/07/14 documented as of this encounter
== END 2025-03-23 23:59 | disposition home or self-care (01) ==
LOC: LAB 14:30
PROVIDERS: PCP Internal Medicine Adolescent Medicine; Visit Provider Nurse Practitioner Family
DX: R82.90 Unspecified abnormal findings in urine (principal); R50.9 Fever, unspecified
CPT/HCPCS: 87086; 87088

== ENCOUNTER 2025-03-29 11:24 | Outpatient (CLI) | payer MEDICAID, SELFPAY ==
--- OUTSIDE RECORDS SUMMARY | 2004-08-20 23:00 | XMS_ITS | Encounter Summary ---
Author Organization [facility] Address [address] [place] [address] Care Team Providers Care Certification Engineer Name Role Phone Unavailable Primary Care Provider Unavailabl e Encounter Details Date Type Department Care Team (Late st Contact Info) Description 08/21/2004 Hospital Encounter [facility] Division of Nephrology [address] [place] [phone] Social History Tobacco Use Types Packs/Day [...] Notes * Consent Other - Edt, Audit [place] - 05/10/2009 11:43 AM EST documented in this encounter Plan of Treatment Not on file documented as of this encounter Visit Diagnoses Not on filedocumented in this encounter
--- OUTSIDE RECORDS SUMMARY | 2004-09-27 23:00 | XMS_ITS | Encounter Summary ---
Author Organization [facility] Address [facility] [place] [address] Care Team Providers Care Pharmacy Technician Inpatient Name Role Phone Unavailable Primary Care Provider Unavailabl e Encounter Details Date Type Department Care Team (Late st Contact Info) Description 09/28/2004 Hospital Encounter [facility] Department of Radiology [address] [place] [phone] Social History Tobacco Use Types Packs/Day [...] Notes * Consent Other - Edt, Audit [place] - 05/10/2009 11:43 AM EST documented in this encounter Plan of Treatment Not on file documented as of this encounter Visit Diagnoses Not on filedocumented in this encounter
--- OUTSIDE RECORDS SUMMARY | 2004-10-01 23:00 | XMS_ITS | Encounter Summary ---
Author Organization [facility] Address [facility] [place] [address] Care Team Providers Care Wire Rope Fabrication Supervisor Name Role Phone Unavailable Primary Care Provider Unavailabl e Encounter Details Date Type Department Care Team (Late st Contact Info) Description 10/02/2004 Hospital Encounter [facility] Department of Radiology [address] [place] [phone] Social History Tobacco Use Types Packs/Day [...] Notes * Consent Other - Edt, Audit [place] - 05/10/2009 11:43 AM EST documented in this encounter Plan of Treatment Not on file documented as of this encounter Visit Diagnoses Not on filedocumented in this encounter
--- OUTSIDE RECORDS SUMMARY | 2005-06-21 | XMS_ITS | Encounter Summary ---
Author Organization [facility] Address [address] [place] [address] Care Team Providers Care Facility Assistant Name Role Phone Unavailable Primary Care Provider Unavailabl e Encounter Details Date Type Department Care Team (Late st Contact Info) Description 06/21/2005 Hospital Encounter [facility] Department of Radiology [address] [place] [phone] Social History Tobacco Use Types Packs/Day [...]
--- OUTSIDE RECORDS SUMMARY | 2005-08-05 23:00 | XMS_ITS | Encounter Summary ---
Author Organization [facility] Address [address] [place] [address] Care Team Providers Care Electrophonic Engineer Name Role Phone Unavailable Primary Care Provider Unavailabl e Encounter Details Date Type Department Care Team (Late st Contact Info) Description 08/06/2005 Hospital Encounter [facility] Department of Radiology [address] [place] [phone] Social History Tobacco Use Types Packs/Day [...]
--- OUTSIDE RECORDS SUMMARY | 2005-09-16 23:00 | XMS_ITS | Encounter Summary ---
Author Organization [facility] Address [address] [place] [address] Care Team Providers Care Lab Tester Name Role Phone Unavailable Primary Care Provider Unavailabl e Encounter Details Date Type Department Care Team (Late st Contact Info) Description 09/17/2005 Hospital Encounter [facility] Department of Radiology [address] [place] [phone] Social History Tobacco Use Types Packs/Day [...]
--- OUTSIDE RECORDS SUMMARY | 2005-09-16 23:00 | XMS_ITS | Encounter Summary ---
Author Organization [facility] Address [address] [place] [address] Care Team Providers Care Speedometer Inspector Name Role Phone Unavailable Primary Care Provider Unavailabl e Encounter Details Date Type Department Care Team (Late st Contact Info) Description 09/17/2005 Hospital Encounter [facility] Division of Cardiology [address] [place] [phone] Social History Tobacco Use Types Packs/Day [...]
--- OUTSIDE RECORDS SUMMARY | 2006-05-16 | XMS_ITS | Encounter Summary ---
Author Organization [facility] Address [address] [place] [address] Care Team Providers Care Certified Industrial Hygienist Name Role Phone Unavailable Primary Care Provider Unavailabl e Encounter Details Date Type Department Care Team (Late st Contact Info) Description 05/16/2006 Hospital Encounter [facility] Department of Radiology [address] [place] [phone] Social History Tobacco Use Types Packs/Day [...]
--- OUTSIDE RECORDS SUMMARY | 2025-03-14 05:45 | XMS_ITS | Continuity of Care Document ---
Author Organization [facility] Phone Care Team Providers Care Underwriting Internship Name Role Phone WIL ALBA Primary Care WIL ALBA Primary Attending [phone] WIL ALBA Admitting WIL ALBA Unavailable MEDICATIONS HOME MEDICATIONS Status RXNORM NDC Medication Dose Route Frequency Dates Comments Reported By Updated By Drug Treatment Unknown DISCHARGE MEDICATIONS Status RXNORM NDC Medication Dose Route Frequency Dates Dis pense Data Comments Physician Updated By No Discharge Medication Info rmation Available INPATIENT MEDICATIONS Status RXNORM NDC Medication Dose Route Frequency Rat e Quantity Dates Indication Dispense Data Comments Physician Updated By No Inpatient Medication Info rmation Available SOCIAL HISTORY SOCIAL HISTORY - Smoking Status SNOMED-CT Social History Element Description Effective Dates Offered Cessation Comment Updated By [id number] Smoking Status Unknown If Ever Smoked SOCIAL HISTORY - Gender Sex: Male SOCIAL HISTORY - Status : status i nformation is not available Intention in Next Year: intention information is not available SOCIAL HISTORY - Assessments Code System Description Status Date Value of Assessment Updated By Comment Assessment Information is no t available SOCIAL HISTORY - [place] Affiliation [place] information is not av ailable SOCIAL HISTORY - Legal Sex Legal Sex information is not available SOCIAL HISTORY - Sexual Behavior Sexual Orientation Gender Identity SNOMED-CT Description SNO MED -CT Description Activity Level No of Partners Partner Type UpdatedBy Information is not available SOCIAL HISTORY - Occupation Occupation information is no t available HEALTH CONCERNS Problems Concern Status Health Concern problem infor mation not available. Smoking Status Status Years Used Consumed packs p er day Health Concern smoking histo ry information not available. Family History Concern Status Health Concern family histor y information not available. ENCOUNTERS ENCOUNTER INFORMATION Reason for Visit R50.9 Admission March 09, 2025 6:43:00 PM [facility] [address] [facility] [address] Discharge March 09, 2025 7:43:[address] [facility] DISCHARGED TO HOME OR SELF CARE ENCOUNTER DIAGNOSES Notes information is not ivan ilable. Code System Diagnosis Onset Date Diagnosis information is not available. ABSTRACT DIAGNOSES Code System Diagnosis Updated By Abatement Date R50.9 ICD10 FEVER, UNSPECIFIED [id number] o n March 14, 2025 10:44:43 AM UTC R50.9 ICD10 FEVER, UNSPECIFIED [id number] o n March 14, 2025 10:44:[address] [facility] CARE TEAM Care Underwriting Internship Role WIL ALBA Primary Care WIL ALBA Primary Attending WIL ALBA Admitting IWL ALBA Referring CARE TEAM CARE composite bond worker Role on Team Location Telecom Status Start Date End Alberto e Updated By ANJALI Dumont APRN PCP normal March 09, 2025 5:00:[address] [facility] March 09, 2025 7:43:[address] [facility] [id number] on March 10, 2025 11:28:[address] [facility] ANJALI Dumont APRN Referring normal March 09, 2025 5:00:[address] [facility] March 09, 2025 7:43:[address] [facility] [id number] on March 10, 2025 11:28:[address] [facility] ANJALI Dumont APRN Attending normal March 09, 2025 5:00:[address] [facility] March 09, 2025 7:43:[address] [facility] [id number] on March 10, 2025 11:28:[address] [facility] ANJALI Dumont APRN Admitting normal March 09, 2025 5:00:[address] [facility] March 09, 2025 7:43:[address] [facility] [id number] on March 10, 2025 11:28:[address] [facility]
--- OUTSIDE RECORDS SUMMARY | 2025-03-29 11:29 | XMS_ITS | Encounter Summary ---
Author Organization [facility] Address [facility] [place] [address] Care Team Providers Care Benefits Manager Name Role Phone Job Delgado MD Primary Care Provider [phone] Encounter Details Date Type Department Care Team (Late st Contact Info) Description 10/23/2010 Abstract [facility] Division of Pediatric Neurosurgery [address] [place] [phone] Magali Santa, RN Social History Tobacco [...] is now followed by Dr. Rosa at [facility]. Bernardo has had skin grafts in the [...] on filedocumented in this encounter Care Teams Benefits Manager Relationship Specialty Start Date End Date Job Delgado MD [address] [facility] [address] [place] [address] PCP - General External Family Practice 01/07/14 documented as of this encounter
--- OUTSIDE RECORDS SUMMARY | 2025-03-29 11:29 | XMS_ITS | Clinical Summary ---
Author Organization [facility] Address [address] [place] [address] Care Team Providers Care Market Risk Analyst Name Role Phone Job Delgado MD Primary Care Provider Source Comments [facility] is fully rolled out with thefollowing exceptions:[facility] Allergies Active Allergy Reactions Criticality Noted Date [...] this topic Medical Devices Implanted Type Area Application Support Lead Device Identifier Shelf Expiration Date Model / Serial / Lot Graft Duragen Plus 1x3 - [id number] Implanted:Qt y: 1 on 11/02/[address] [facility] Human Tissue N/A: Back [employer] 07/03/2013 [id number] / N/A / [id number] Bone Graft Infuse Lg - [id number] Implanted:Qt y: 1 on 11/02/[address] [facility] Human Tissue N/A: Back [employer] 02/02/2013 [id number] / N/A / [id number] Puty Dbx-Dbm 10ml - [id number] Implanted:Qt y: 2 on 11/02/[address] [facility] Human Tissue [employer] [id number] / / Wire Whit[place] Dbl 18g - [id number] Implanted:Qt y: 10 on 11/02/[address] [facility] Neurosurgical N/A: Back [employer] [id number] / [id number] / [id number] Renard Whitmore Spinal Prebent 1/4in - [id number] Implanted:Qt y: 2 on 11/02/[address] [facility] Neurosurgical N/A: Back [employer] 11/03/2011 [id number] / N/A / N/A 5f Sfx Cross 6wect Implanted:Qt y: 1 on 11/02/[address] [facility] Orthopedic N/A: Back 11/03/2011 [id number] / N/A / N/A Wire [place] Button 20g - [id number] Implanted:Qt y: 1 on 11/02/[address] [facility] Orthopedic N/A: Back [employer] 11/03/2011 [id number] / N/A / N/A Insurance LULI GUIDO NON-TRADITIONAL Member Subscriber Plan / Payer (Ef fective 2010-Present) Name:Bernardo Ochoa Relation to Subscriber:Child Name:POLLY OCHOA Date of :1968 (Home) Address: [place] [address] Payer ID:[id number] (NAIC) Type:O Address: [address] MEDICAID Care Teams Market Risk Analyst Relationship Specialty Start Date End Date Job Delgado MD [facility] [place] [address] [address] [place] [address] PCP - General External Family Practice 01/07/14
--- OUTSIDE RECORDS SUMMARY | 2025-03-29 11:29 | XMS_ITS | Encounter Summary ---
Author Organization [facility] Address [address] [place] [address] Care Team Providers Care Field Case Manager Name Role Phone Job Delgado MD Primary Care Provider +[phone] Encounter Details Date Type Department Care Team (Late st Contact Info) Description 06/01/2007 Office Visit [facility] Division of Pediatric Urology [address] [place] [phone] Woo Lerner Jr., MD/MPH Urology [address] [place] [address] Neurogenic Bladder, NOS Social History Tobacco Use Types Packs/Day Years Used Date Smoking Tobacco: Never Assessed Sex and Gender Information Value Date Recorded Sex Assigned at Not on file Legal Sex Male 5:13 AM EST Gender Identity Not on file Sexual Orientation Not on file documented as of this encounter Procedure Notes * Joey Cost Estimating Engineer - 11/26/2007 2:51 PM EDT documented in this encounter Plan of Treatment Not on file documented as of this encounter Procedures Procedure Name Priority Date/Time Associated Diagnosis Comments URINE CULTURE Routine 06/01/2007 10:00 AM EST URINALYSIS CHEMICAL ONLY Routine 06/01/2007 10:00 AM EST documented in this encounter Results * CULTURE, URINE (06/01/2007 10:00 AM EST) URINE CULTURE Source: CATHETERIZED URINE, IN AND OUT [facility] URINE CULTURE Procedure: URINE CULTURE Collected: 999 [facility] URINE CULTURE Received: 1025 [facility] URINE CULTURE FINAL REPORT [facility] URINE CULTURE FINAL REPORT 113 [id number] [facility] URINE CULTURE NO GROWTH <1,000 CFU/ML [facility] 06/01/2007 10:0 0 AM EST 06/01/2007 10:00 AM EST Woo Lerner Jr., MD/MPH MICRO CULTURE ORDERABLES Final Result Performing Organization Address [facility] de Phone Number [facility] * URINALYSIS CHEMICAL ONLY (06/01/2007 10:00 AM EST) U APPEARANCE CLEAR CLEAR [facility] U COLOR YELLOW [facility] SPECIFIC GRAVITY BY REFRACTOMETRY 1.023 1.005 - 1.030 [facility] Comment: (02/19/01 -- Current) SPECIFIC GRAVITY REFERENCE RANGE 1.005 - 1.030 U PH 6.0 5.0 - 8.0 [facility] U PROTEIN NEGATIVE NEGATIVE MG/DL [facility] U GLUCOSE NEGATIVE NEGATIVE MG/DL [facility] U KETONES NEGATIVE NEGATIVE MG/DL [facility] U BILI NEGATIVE NEGATIVE [facility] U BLOOD NEGATIVE NEGATIVE [facility] U NITRITE NEGATIVE NEGATIVE [facility] U UROBILINOGEN <2.0 0.2 - 1.0 EU/DL [facility] U LEUKOCYTE GLORIA NEGATIVE NEGATIVE [facility] 06/01/2007 10:0 0 AM EST 06/01/2007 10:00 AM EST Woo Lerner Jr., MD/MPH URINE ORDERABL ES Final Result Performing Organization Address [facility] Co de Phone Number [facility] documented in this encounter Visit Diagnoses Diagnosis Neurogenic bladder, NOS documented in this encounter Care Teams Field Case Manager Relationship Specialty Start Date End Date Job Delgado MD [address] [facility] [address] [place] [address] PCP - General External Family Practice 01/07/14 documented as of this encounter
--- OUTSIDE RECORDS SUMMARY | 2025-03-29 11:29 | XMS_ITS | Encounter Summary ---
Author Organization [facility] Address [facility] [place] [address] Care Team Providers Care Separating Machine Operator Name Role Phone Job Delgado MD Primary Care Provider [phone] Encounter Details Date Type Department Care Team (Late st Contact Info) Description 12/17/2012 Abstract [facility] Division of Pediatric Urology [address] [place] [phone] Material Requirements Worker, [facility] Social History Tobacco Use Types Packs/Day [...] EXT PHOSPHORUS, UR EXT MICROALBUMIN, URINE EXT [id number], UR EXT PROTEIN, 24 HR UR EXT [...] on filedocumented in this encounter Care Teams Separating Machine Operator Relationship Specialty Start Date End Date Job Delgado MD [address] [facility] [address] [place] [id number] PCP - General External Family Practice 01/07/14 documented as of this encounter
--- OUTSIDE RECORDS SUMMARY | 2025-03-29 11:29 | XMS_ITS | Encounter Summary ---
Author Organization [facility] Address [facility] [place] [address] Care Team Providers Care Comber Tender Name Role Phone Job Delgado MD Primary Care Provider [phone] Encounter Details Date Type Department Care Team (Late st Contact Info) Description 10/28/2012 Abstract [facility] Division of Pediatric Urology [address] [place] [phone] Highway Patrol Commander, [facility] Social History Tobacco Use Types Packs/Day [...] encounter Progress Notes * Cookie Reid RN, HEADER MACHINE OPERATOR - 10/28/2012 12:25 PM EDT Reviewed, see [...] catch procedure (specimen) 10/15/2012 2:38 PM EDT [facility] Provider EXTERNAL LAB ORDERABLES Gricelda l Result [...] on filedocumented in this encounter Care Teams Comber Tender Relationship Specialty Start Date End Date Job Delgado MD [facility] [place] [address] [address] [place] [address] PCP - General External Family Practice 01/07/14 documented as of this encounter
--- OUTSIDE RECORDS SUMMARY | 2025-03-29 11:30 | XMS_ITS | Clinical Summary ---
Author Organization [facility] Address [address] [place] [address] Care Team Providers Care Hands And Dial Inspector Name Role Phone Unavailable Primary Care [...]
[2025-03-29 12:12] LABS: Chloride 103 mmol/L (98-107)
[2025-03-29 12:13] LABS: Potassium 4.4 mmoL/L (3.5-5.1); Sodium 140 mmol/L (136-145)
[2025-03-29 12:15] VITALS: BP 117/68; PULSE 75; RESP 18; O2SAT 100
[2025-03-29 12:15] LABS: Blood Urea Nitrogen 12 mg/dl (9-20); Creatinine,Serum 0.40 mg/dl (0.66-1.25); Estimated Glomerular Filt Rate 256 ml/min (>60); GFR (African American) 310 ML/MIN (>60)
[2025-03-29] MEDS: SODIUM CHLORIDE 0.9% 10ML FLUSH SYRINGE 10 ML IV (12:15)
[2025-03-29 12:16] LABS: Anion Gap 18.4 mEq/L (5-15); Calcium 9.0 mg/dl (8.4-10.2); Carbon Dioxide 23 mmol/L (22.0-30.0); Glucose 100 mg/dl (74-100)
[2025-03-29 12:45] VITALS: BP 121/70; PULSE 74
--- NOTE | 2025-03-29 16:45 | HMH.PROCNOTE ---
[facility] Procedure Note Date: 03/29/25 Time: Procedure Note:: Midline insertion: Midline insertion for antibiotic administration due to poor venous access Time: 11:25 am Midline placement was ordered by patient's PCP, Flavia Wells APRN. Consent was obtained verbally from the patient. Discussed risk with patient's including but not limited to bleeding, nerve damage, pain, infection. Right arm was placed on table, prepped and draped in sterile fashion. Under ultrasound guidance, needle was placed into the right brachial vein. A guidewire was then threaded through the vein and advanced without difficulty. Introducer was then placed over the guidewire and guidewire was removed. Midline catheter was measured and trimmed to appropriate length of 9 cm. Midline catheter was then threaded through introducer without difficulty. Midline was flushed with 30 mL of normal saline without resistance. Blood return noted. Introducer was removed, midline was secured with StatLock and sterile dressing. Patient tolerated the procedure nicely and was educated on CLABSI, dressing care, midline use, infection risk. Blood Loss: Less than 5 cc
== END 2025-03-29 23:59 | disposition home or self-care (01) ==
PROVIDERS: PCP Internal Medicine Adolescent Medicine; Visit Provider Nurse Practitioner Family
DX: N39.0 Urinary tract infection, site not specified (principal); B96.5 Pseudomonas (aeruginosa) (mallei) (pseudomallei) as the cause of diseases classified elsewhere
CPT/HCPCS: 80048; 96365; J3260

== ENCOUNTER 2025-03-30 11:51 | Outpatient (CLI) | payer MEDICAID, SELFPAY ==
--- OUTSIDE RECORDS SUMMARY | 2004-08-20 23:00 | XMS_ITS | Encounter Summary ---
Author Organization [facility] Address [address] [place] [address] Care Team Providers Care Belt Sander Stone Name Role Phone Unavailable Primary Care Provider Unavailabl e Encounter Details Date Type Department Care Team (Late st Contact Info) Description 08/21/2004 Hospital Encounter [facility] Division of Nephrology [address] [place] [phone] Social History Tobacco Use Types Packs/Day Years Used Date Smoking Tobacco: Never Smokeless Tobacco: Never Alcohol Use Standard Drinks/Week Comments No 0 (1 standard drink = 0.6 oz pur e alcohol) Sex and Gender Information Value Date Recorded Sex Assigned at Not on file Legal Sex Male 5:13 AM EST Gender Identity Not on file Sexual Orientation Not on file documented as of this encounter Miscellaneous Notes * Consent Other - Edt, Audit [place] - 05/10/2009 11:43 AM EST documented in this encounter Plan of Treatment Not on file documented as of this encounter Visit Diagnoses Not on filedocumented in this encounter
--- OUTSIDE RECORDS SUMMARY | 2004-09-27 23:00 | XMS_ITS | Encounter Summary ---
Author Organization [facility] Address [facility] [place] [address] Care Team Providers Care Gas Worker Name Role Phone Unavailable Primary Care Provider Unavailabl e Encounter Details Date Type Department Care Team (Late st Contact Info) Description 09/28/2004 Hospital Encounter [facility] Department of Radiology [address] [place] [phone] Social History Tobacco Use Types Packs/Day [...] Notes * Consent Other - Edt, Audit [place] - 05/10/2009 11:43 AM EST documented in this encounter Plan of Treatment Not on file documented as of this encounter Visit Diagnoses Not on filedocumented in this encounter
--- OUTSIDE RECORDS SUMMARY | 2004-10-01 23:00 | XMS_ITS | Encounter Summary ---
Author Organization [facility] Address [facility] [place] [address] Care Team Providers Care Accounting Reconciliation Clerk Name Role Phone Unavailable Primary Care Provider Unavailabl e Encounter Details Date Type Department Care Team (Late st Contact Info) Description 10/02/2004 Hospital Encounter [facility] Department of Radiology [address] [place] [phone] Social History Tobacco Use Types Packs/Day [...] Notes * Consent Other - Edt, Audit [place] - 05/10/2009 11:43 AM EST documented in this encounter Plan of Treatment Not on file documented as of this encounter Visit Diagnoses Not on filedocumented in this encounter
--- OUTSIDE RECORDS SUMMARY | 2005-06-21 | XMS_ITS | Encounter Summary ---
Author Organization [facility] Address [address] [place] [address] Care Team Providers Care Trust Officer Name Role Phone Unavailable Primary Care Provider Unavailabl e Encounter Details Date Type Department Care Team (Late st Contact Info) Description 06/21/2005 Hospital Encounter [facility] Department of Radiology [address] [place] [phone] Social History Tobacco Use Types Packs/Day [...]
--- OUTSIDE RECORDS SUMMARY | 2005-08-05 23:00 | XMS_ITS | Encounter Summary ---
Author Organization [facility] Address [address] [place] [address] Care Team Providers Care Acid Adjuster Name Role Phone Unavailable Primary Care Provider Unavailabl e Encounter Details Date Type Department Care Team (Late st Contact Info) Description 08/06/2005 Hospital Encounter [facility] Department of Radiology [address] [place] [phone] Social History Tobacco Use Types Packs/Day [...]
--- OUTSIDE RECORDS SUMMARY | 2005-09-16 23:00 | XMS_ITS | Encounter Summary ---
Author Organization [facility] Address [address] [place] [address] Care Team Providers Care Phlebotomy Program Coordinator Name Role Phone Unavailable Primary Care Provider Unavailabl e Encounter Details Date Type Department Care Team (Late st Contact Info) Description 09/17/2005 Hospital Encounter [facility] Department of Radiology [address] [place] [phone] Social History Tobacco Use Types Packs/Day [...]
--- OUTSIDE RECORDS SUMMARY | 2005-09-16 23:00 | XMS_ITS | Encounter Summary ---
Author Organization [facility] Address [address] [place] [address] Care Team Providers Care Dairy Worker Name Role Phone Unavailable Primary Care Provider Unavailabl e Encounter Details Date Type Department Care Team (Late st Contact Info) Description 09/17/2005 Hospital Encounter [facility] Division of Cardiology [address] [place] [phone] Social History Tobacco Use Types Packs/Day [...]
--- OUTSIDE RECORDS SUMMARY | 2006-05-16 | XMS_ITS | Encounter Summary ---
Author Organization [facility] Address [address] [place] [address] Care Team Providers Care Manager Pest Name Role Phone Unavailable Primary Care Provider Unavailabl e Encounter Details Date Type Department Care Team (Late st Contact Info) Description 05/16/2006 Hospital Encounter [facility] Department of Radiology [address] [place] [phone] Social History Tobacco Use Types Packs/Day [...]
--- OUTSIDE RECORDS SUMMARY | 2025-03-30 11:55 | XMS_ITS | Encounter Summary ---
Author Organization [facility] Address [facility] [place] [address] Care Team Providers Care Adult Protective Caseworker Name Role Phone Job Delgado MD Primary Care Provider [phone] Encounter Details Date Type Department Care Team (Late st Contact Info) Description 10/23/2010 Abstract [facility] Division of Pediatric Neurosurgery [address] [place] [phone] Magali Santa, RN Social History Tobacco [...] on filedocumented in this encounter Care Teams Adult Protective Caseworker Relationship Specialty Start Date End Date Job Delgado MD [address] [facility] [address] [place] [address] PCP - General External Family Practice 01/07/14 documented as of this encounter
--- OUTSIDE RECORDS SUMMARY | 2025-03-30 11:55 | XMS_ITS | Clinical Summary ---
Author Organization [facility] Address [address] [place] [address] Care Team Providers Care Regulatory Process Manager Name Role Phone Unavailable Primary Care [...]
--- OUTSIDE RECORDS SUMMARY | 2025-03-30 11:55 | XMS_ITS | Encounter Summary ---
Author Organization [facility] Address [address] [place] [address] Care Team Providers Care Handtools Repairer Name Role Phone Job Delgado MD Primary Care Provider [phone] Encounter Details Date Type Department Care Team (Late st Contact Info) Description 06/01/2007 Office Visit [facility] Division of Pediatric Urology [address] [place] [phone] Woo Lerner Jr., MD/MPH Urology [address] [place] [address] Neurogenic Bladder, NOS Social History Tobacco Use Types Packs/Day Years Used Date Smoking Tobacco: Never Assessed Sex and Gender Information Value Date Recorded Sex Assigned at Not on file Legal Sex Male 5:13 AM EST Gender Identity Not on file Sexual Orientation Not on file documented as of this encounter Procedure Notes * Joey Building Drafting Officer - 11/26/2007 2:51 PM EDT documented in this encounter Plan of Treatment Not on file documented as of this encounter Procedures Procedure Name Priority Date/Time Associated Diagnosis Comments URINE CULTURE Routine 06/01/2007 10:00 AM EST URINALYSIS CHEMICAL ONLY Routine 06/01/2007 10:00 AM EST documented in this encounter Results * CULTURE, URINE (06/01/2007 10:00 AM EST) URINE CULTURE Source: CATHETERIZED URINE, IN AND OUT [facility] URINE CULTURE Procedure: URINE CULTURE Collected: 999 [facility] URINE CULTURE Received: 1025 [facility] URINE CULTURE FINAL REPORT [facility] URINE CULTURE FINAL REPORT 113 [id number] [facility] URINE CULTURE NO GROWTH <1,000 CFU/ML [facility] 06/01/2007 10:0 0 AM EST 06/01/2007 10:00 AM EST Woo Lerner Jr., MD/MPH MICRO CULTURE ORDERABLES Final Result Performing Organization Address [facility] de Phone Number [facility] * URINALYSIS CHEMICAL ONLY (06/01/2007 10:00 AM EST) U APPEARANCE CLEAR CLEAR [facility] U COLOR YELLOW [facility] SPECIFIC GRAVITY BY REFRACTOMETRY 1.023 1.005 - 1.030 [facility] Comment: (02/19/01 -- Current) SPECIFIC GRAVITY REFERENCE RANGE 1.005 - 1.030 U PH 6.0 5.0 - 8.0 [facility] U PROTEIN NEGATIVE NEGATIVE MG/DL [facility] U GLUCOSE NEGATIVE NEGATIVE MG/DL [facility] U KETONES NEGATIVE NEGATIVE MG/DL [facility] U BILI NEGATIVE NEGATIVE [facility] U BLOOD NEGATIVE NEGATIVE [facility] U NITRITE NEGATIVE NEGATIVE [facility] U UROBILINOGEN <2.0 0.2 - 1.0 EU/DL [facility] U LEUKOCYTE GLORIA NEGATIVE NEGATIVE [facility] 06/01/2007 10:0 0 AM EST 06/01/2007 10:00 AM EST Woo Lerner Jr., MD/MPH URINE ORDERABL ES Final Result Performing Organization Address [facility] Co de Phone Number [facility] documented in this encounter Visit Diagnoses Diagnosis Neurogenic bladder, NOS documented in this encounter Care Teams Handtools Repairer Relationship Specialty Start Date End Date Job Delgado MD [address] [facility] [address] [place] [address] PCP - General External Family Practice 01/07/14 documented as of this encounter
--- OUTSIDE RECORDS SUMMARY | 2025-03-30 11:55 | XMS_ITS | Encounter Summary ---
Author Organization [facility] Address [facility] [place] [address] Care Team Providers Care Test Center Administrator Name Role Phone Job Delgado MD Primary Care Provider [phone] Encounter Details Date Type Department Care Team (Late st Contact Info) Description 12/17/2012 Abstract [facility] Division of Pediatric Urology [address] [place] [phone] Job Development Specialist, [facility] Social History Tobacco Use Types Packs/Day Years [...] EXT PHOSPHORUS, UR EXT MICROALBUMIN, URINE EXT [id number], UR EXT PROTEIN, 24 HR UR EXT [...] on filedocumented in this encounter Care Teams Test Center Administrator Relationship Specialty Start Date End Date Job Delgado MD [address] [facility] [address] [place] [id number] PCP - General External Family Practice 01/07/14 documented as of this encounter
--- OUTSIDE RECORDS SUMMARY | 2025-03-30 11:55 | XMS_ITS | Data Portability ---
Author Organization [facility] Address [address] [facility] [address] [place] [address] Assessment Encounter Date Assessment Date Assessment LastModified [...] prepped and draped in standard fashion. The 19-Surinamese cystoscope sheath was introduced with a 30 [...] cystoscope was withdrawn and fashioned to 16 Surinamese latex free chipewwa catheter placed this over the wire into [...] antifungal cream for candidiasis of skin folds. [email or web address] Not available 10/07/2021 12:12:08 Plan of Treatment Reminders Order Date Submit Date Provider Last Modified By Organization Details Last Modified Time Details Appointments None recorded. Lab None recorded. Referral None recorded. Procedures None recorded. Surgeries None recorded. Imaging None recorded. Medication Orders clotrimazol e-betametha sone 1 %-0.05 % topical cream 2021 022 [facility], [address] [place] [address], [id number], 12:31:08 methenamine hippurate 1 gram tablet 2021 022 [facility], [address] [place] [address], [id number], 12:31:08 Patient TargetsNo targets recorded. Patient Instructions Encounter Date Encounter Id Patient Instructions Last Modified By Organization Details Last Modified Time 07/19/2019 [id number] neurogenic bladder: care instructions [email or web address] Not available 07/19/2019 12:04:05 Reason for Referral None Reported. Results Created Date Observation Date Name Description Value Unit Range Abnormal Flag Note LastModifiedBy Organization Detail LastModifiedTime 05/16/19 18 04/25/2017 CT, abdom en + pelvi s, w/o contr ast No observ ation record ed. [facility] ([facility]) [address], [place], [address], 05/16/2017 16:58:32 02/11/20 18 02/10/2018 abhi GARCIA er No observ ation record ed. [email or web address] [facility] [address] [place] [address] [address], [place], [id number], 02/11/2018 12:18:14 02/11/20 18 02/10/2018 US, retro perit oneum , compl ete No observ ation record ed. [email or web address] [address], [place], [address], 02/11/2018 12:18:49 01/26/20 19 11/16/2018 US, abdom en, compl ete No observ ation record ed. [facility] [address], [place], [address], 01/25/2019 12:17:02 Result Notes None recorded. Procedures Surgical History Date Name Laterality Status Provider Name and Address Organization Details Recorded Time 8 ASPIRATION, BLADDER, INSERTION OF SUPRAPUBIC CATHETER (SURG) completed Vineet Craft [facility] 06/13/2017 13:52:42 7 ASPIRATION, BLADDER, INSERTION OF SUPRAPUBIC CATHETER (SURG) completed GREGG HARRISON MD [address] [place] [address], [phone], [facility] 09/02/2016 12:34:34 Imaging Results None recorded. Procedure Notes None recorded. Medical Equipment None Reported. Allergies Allergen ID Allergen Name Allergen Category Reaction Reaction Severity Criticality Documentation Date Start Date Code Code System Note Provider Name and Address Organization Details Recorded Time 207128 latex environme nt,medica tion Not available Not available Not available 07/19/2019 63821 91 RxNorm Stephanie Bentleyroseann [facility] 0 11:36:14 324856 banana extract food,medi cation Not available Not available Not available 07/19/2019 67652 9 RxNorm Stephanie Bentleyroseann [facility] 0 11:36:20 Medications Name Sig Start Date [...] Address Organization Details Last Updated DateTime 07/19/2019 45017.16 g Stephanie Jimmy [facility] 07/19/2019 11:36:08 Date Recorded Body weight Provider Name an d Address Organization Details Last Updated DateTime 10/05/2021 25982.16 g Jerilyn Navi [facility] 0 10/05/2021 11:53:59 Social History Question Answer Notes LastModified by Organizat ion Details LastModified Time Tobacco Smoking Status Never Smoker Stephanie Marquez [facility] 07/19/2019 11:36:42 How Much Tobacco Do You [...] Time Father No current problems or disability [email or web address] Not available 10/05 11:54:27 Mother No current problems or disability [email or web address] Not available 10/05 11:54:27 Medical History No medical history recorded. Past Encounters Encounter ID Performer Location Encounter Start Date Encounter Closed Date Diagnosis/Indication Diagnosis SNOMED-CT Code Diagnosis ICD10 Code Diagnosis IMO Codes Diagnosis Note [id number] GREGG HARRISON MD SURGERY SCHEDULE [address] [place] [address] 04/30/2017 09:50:01 04/30/2017 09:55:53 [id number] MD ALINE [facility]ENARD [facility] [address] [facility] [place] [phone] 07/19/2019 11:00:47 07/19/2019 11:47:58 Neurogenic urinary bladder 402381065 N31.9 continue suprapubic catheter. Chronic cystitis 9827447 2 N30.20 plan as above. His mother will contact me for results. [id number] MD ALINE SWEENEY [facility] [address] [facility] [place] [address] 10/05/2021 11:25:55 10/05/2021 12:21:17 Candidiasis of skin 95348110 B37.2 Recurrent urinary tract infection 987166557 N39.0 Neurogenic urinary bladder 478539607 N31.9 Health Concerns Section Related Observation LastModified by Organization Detai ls LastModified Time None Recorded Concern Status LastModified by Organization Details LastModified Time None Recorded Advance Directives Directive None Recorded Payers Insurance Date Sequence Insurance Name Policy Number Policy Gale Covered Member ID Gale Member ID Guarantor Name 12/03/2021 1 [place] [employer] [place] FFS/TRADITIO NAL Bernardo Blake [id number] Bernardo Blake 10/05/2021 1 [place] [id number] Aaron Blake [id number] Bernardo Blake Notes Date Note Type Note Provider Name and Address Organization Details Recorded Time 07/19/2019 text/html patient is typically [facility] at the [facility]. He is 23 years of age [...] for genetic urinary testing. GREGG HARRISON MD [address] [place] [address], [phone], [facility] 07/19/2019 12:04:24 10/05/2021 text/html 25-year-old male, patient [...] fold of lower abdomen. EFRAÍN GONZALEZ MD [address] [place] [address], [phone], [facility] 10/07/2021 12:12:25
--- OUTSIDE RECORDS SUMMARY | 2025-03-30 11:55 | XMS_ITS | Clinical Summary ---
Author Organization [facility] Address [address] [place] [address] Care Team Providers Care Intern Architect Name Role Phone Job Delgado MD Primary Care Provider Source Comments [facility] is fully rolled out with thefollowing exceptions:[facility] Allergies Active Allergy Reactions Criticality [...] this topic Medical Devices Implanted Type Area Physicist Acoustics Device Identifier Shelf Expiration Date Model / Serial / Lot Graft Duragen Plus 1x3 - [id number] Implanted:Qt y: 1 on 11/02/2010 at [facility] Human Tissue N/A: Back [employer] 07/03/2013 DP-[id number] / N/A / [id number] Bone Graft Infuse Lg - [id number] Implanted:Qt y: 1 on 11/02/2010 at [facility] Human Tissue N/A: Back [employer] 02/02/2013 [id number] / N/A / [id number] Puty Dbx-Dbm 10ml - [id number] Implanted:Qt y: 2 on 11/02/2010 at [facility] Human Tissue [employer] 02-3110 / / Wire [place] Dbl 18g - [id number] Implanted:Qt y: 10 on 11/02/2010 at [facility] Neurosurgical N/A: Back [employer] [id number] / [id number] / [id number] Renard [place] Spinal Prebent 1/4in - [id number] Implanted:Qt y: 2 on 11/02/2010 at [facility] Neurosurgical N/A: Back [employer] 11/03/2011 [id number] / N/A / N/A 5f Sfx Cross 6wect Implanted:Qt y: 1 on 11/02/2010 at [facility] Orthopedic N/A: Back 11/03/2011 [id number] / N/A / N/A Wire [place] Button 20g - [id number] Implanted:Qt y: 1 on 11/02/2010 at [facility] Orthopedic N/A: Back [employer] 11/03/2011 [id number] / N/A / N/A Insurance LULI GUIDO NON-TRADITIONAL Member Subscriber Plan / Payer (Ef fective 2010-Present) Name:Bernardo Ochoa Relation to Subscriber:Child Name:POLLY OCHOA Date of :1968 (Home) Address: [place] [address] Payer ID:[id number] (NAIC) Type:O Address: [address] MEDICAID Care Teams Intern Architect Relationship Specialty Start Date End Date Job Delgado MD [facility] [place] [address] [address] [place] [address] PCP - General External Family Practice 01/07/14
--- OUTSIDE RECORDS SUMMARY | 2025-03-30 11:55 | XMS_ITS | Encounter Summary ---
Author Organization [facility] Address [facility] [place] [address] Care Team Providers Care Technical Customer Support Specialist Name Role Phone Job Delgado MD Primary Care Provider [phone] [phone] Encounter Details Date Type Department Care Team (Late st Contact Info) Description 10/28/[address] [facility] Division of Pediatric Urology [address] [place] [phone] Sales And Marketing Coordinator, [facility] Social History Tobacco Use Types Packs/Day Years [...] encounter Progress Notes * Cookie Reid RN, ITALIAN TUTOR - 10/28/2012 12:25 PM EDT Reviewed, see [...] procedure (specimen) 10/15/2012 2:38 PM EDT [facility] Provider EXTERNAL LAB ORDERABLES [email or web address] l [...] on filedocumented in this encounter Care Teams Technical Customer Support Specialist Relationship Specialty Start Date End Date Job Delgado MD [facility] [place] [address] [address] [place] [address] PCP - General External Family Practice 01/07/14 documented as of this encounter
[2025-03-30 12:21] VITALS: BP 138/72; PULSE 71; RESP 18; TEMP 36.6; O2SAT 98
[2025-03-30] MEDS: SODIUM CHLORIDE 0.9% 10ML FLUSH SYRINGE 10 ML IV (12:27)
[2025-03-30 12:34] LABS: Tobramycin,Trough < 0.6 ug/ml (0-2.0)
[2025-03-30 13:25] VITALS: BP 119/76; PULSE 78; RESP 18; O2SAT 98
== END 2025-03-30 23:59 | disposition home or self-care (01) ==
LOC: INF 11:53
PROVIDERS: PCP Internal Medicine Adolescent Medicine; Visit Provider Nurse Practitioner Family
DX: N39.0 Urinary tract infection, site not specified (principal); P96.5 Complication to newborn due to (fetal) intrauterine procedure
CPT/HCPCS: 80200; 96365; J3260

== ENCOUNTER 2025-03-31 11:36 | Outpatient (CLI) | payer MEDICAID, SELFPAY ==
--- OUTSIDE RECORDS SUMMARY | 2004-08-20 23:00 | XMS_ITS | Encounter Summary ---
Author Organization [facility] Address [address] [place] [address] Care Team Providers Care Manager Of Operations Name Role Phone Unavailable Primary Care Provider Unavailabl e Encounter Details Date Type Department Care Team (Late st Contact Info) Description 08/21/2004 Hospital Encounter [facility] Division of Nephrology [address] [place] [phone] Social History Tobacco Use Types Packs/Day [...] Notes * Consent Other - Edt, Audit [place] - 05/10/2009 11:43 AM EST documented in this encounter Plan of Treatment Not on file documented as of this encounter Visit Diagnoses Not on filedocumented in this encounter
--- OUTSIDE RECORDS SUMMARY | 2004-09-27 23:00 | XMS_ITS | Encounter Summary ---
Author Organization [facility] Address [facility] [place] [address] Care Team Providers Care Industrial Engineering Analyst Name Role Phone Unavailable Primary Care Provider Unavailabl e Encounter Details Date Type Department Care Team (Late st Contact Info) Description 09/28/2004 Hospital Encounter [facility] Department of Radiology [address] [place] [phone] Social History Tobacco Use Types Packs/Day [...] Notes * Consent Other - Edt, Audit [place] - 05/10/2009 11:43 AM EST documented in this encounter Plan of Treatment Not on file documented as of this encounter Visit Diagnoses Not on filedocumented in this encounter
--- OUTSIDE RECORDS SUMMARY | 2004-10-01 23:00 | XMS_ITS | Encounter Summary ---
Author Organization [facility] Address [facility] [place] [address] Care Team Providers Care China Decorator Name Role Phone Unavailable Primary Care Provider Unavailabl e Encounter Details Date Type Department Care Team (Late st Contact Info) Description 10/02/2004 Hospital Encounter [facility] Department of Radiology [address] [place] [phone] Social History Tobacco Use Types Packs/Day [...] Notes * Consent Other - Edt, Audit [place] - 05/10/2009 11:43 AM EST documented in this encounter Plan of Treatment Not on file documented as of this encounter Visit Diagnoses Not on filedocumented in this encounter
--- OUTSIDE RECORDS SUMMARY | 2005-06-21 | XMS_ITS | Encounter Summary ---
Author Organization [facility] Address [address] [place] [address] Care Team Providers Care Skin Installer Name Role Phone Unavailable Primary Care Provider Unavailabl e Encounter Details Date Type Department Care Team (Late st Contact Info) Description 06/21/2005 Hospital Encounter [facility] Department of Radiology [address] [place] [phone] Social History Tobacco Use Types Packs/Day [...]
--- OUTSIDE RECORDS SUMMARY | 2005-08-05 23:00 | XMS_ITS | Encounter Summary ---
Author Organization [facility] Address [address] [place] [address] Care Team Providers Care Informix Developer Name Role Phone Unavailable Primary Care Provider Unavailabl e Encounter Details Date Type Department Care Team (Late st Contact Info) Description 08/06/2005 Hospital Encounter [facility] Department of Radiology [address] [place] [phone] Social History Tobacco Use Types Packs/Day [...]
--- OUTSIDE RECORDS SUMMARY | 2005-09-16 23:00 | XMS_ITS | Encounter Summary ---
Author Organization [facility] Address [address] [place] [address] Care Team Providers Care Rotary Dump Operator Name Role Phone Unavailable Primary Care Provider Unavailabl e Encounter Details Date Type Department Care Team (Late st Contact Info) Description 09/17/2005 Hospital Encounter [facility] Division of Cardiology [address] [place] [phone] Social History Tobacco Use Types Packs/Day [...]
--- OUTSIDE RECORDS SUMMARY | 2005-09-16 23:00 | XMS_ITS | Encounter Summary ---
Author Organization [facility] Address [address] [place] [address] Care Team Providers Care Sales Representative Meats Name Role Phone Unavailable Primary Care Provider Unavailabl e Encounter Details Date Type Department Care Team (Late st Contact Info) Description 09/17/2005 Hospital Encounter [facility] Department of Radiology [address] [place] [phone] Social History Tobacco Use Types Packs/Day [...]
--- OUTSIDE RECORDS SUMMARY | 2006-05-16 | XMS_ITS | Encounter Summary ---
Author Organization [facility] Address [address] [place] [address] Care Team Providers Care Jacquard Loom Card Changer Name Role Phone Unavailable Primary Care Provider Unavailabl e Encounter Details Date Type Department Care Team (Late st Contact Info) Description 05/16/2006 Hospital Encounter [facility] Department of Radiology [address] [place] [phone] Social History Tobacco Use Types Packs/Day [...]
--- OUTSIDE RECORDS SUMMARY | 2025-03-31 11:38 | XMS_ITS | Encounter Summary ---
Author Organization [facility] Address [address] [place] [address] Care Team Providers Care Organ Teacher Name Role Phone Job Delgado MD Primary Care Provider [phone] Encounter Details Date Type Department Care Team (Late st Contact Info) Description 06/01/2007 Office Visit [facility] Division of Pediatric Urology [address] [place] [phone] Woo Lerner Jr., MD/MPH Urology [address] [place] [address] Neurogenic Bladder, NOS Social History Tobacco Use Types Packs/Day Years Used Date Smoking Tobacco: Never Assessed Sex and Gender Information Value Date Recorded Sex Assigned at Not on file Legal Sex Male 5:13 AM EST Gender Identity Not on file Sexual Orientation Not on file documented as of this encounter Procedure Notes * Joey Nutrition Intern - 11/26/2007 2:51 PM EDT documented in this encounter Plan of Treatment Not on file documented as of this encounter Procedures Procedure Name Priority Date/Time Associated Diagnosis Comments URINE CULTURE Routine 06/01/2007 10:00 AM EST URINALYSIS CHEMICAL ONLY Routine 06/01/2007 10:00 AM EST documented in this encounter Results * CULTURE, URINE (06/01/2007 10:00 AM EST) URINE CULTURE Source: CATHETERIZED URINE, IN AND OUT [facility] URINE CULTURE Procedure: URINE CULTURE Collected: 999 [facility] URINE CULTURE Received: 1025 [facility] URINE CULTURE FINAL REPORT [facility] URINE CULTURE FINAL REPORT 113 [id number] [facility] URINE CULTURE NO GROWTH <1,000 CFU/ML [facility] 06/01/2007 10:0 0 AM EST 06/01/2007 10:00 AM EST Woo Lerner Jr., MD/MPH MICRO CULTURE ORDERABLES Final Result Performing Organization Address [facility] de Phone Number [facility] * URINALYSIS CHEMICAL ONLY (06/01/2007 10:00 AM EST) U APPEARANCE CLEAR CLEAR [facility] U COLOR YELLOW [facility] SPECIFIC GRAVITY BY REFRACTOMETRY 1.023 1.005 - 1.030 [facility] Comment: (02/19/01 -- Current) SPECIFIC GRAVITY REFERENCE RANGE 1.005 - 1.030 U PH 6.0 5.0 - 8.0 [facility] U PROTEIN NEGATIVE NEGATIVE MG/DL [facility] U GLUCOSE NEGATIVE NEGATIVE MG/DL [facility] U KETONES NEGATIVE NEGATIVE MG/DL [facility] U BILI NEGATIVE NEGATIVE [facility] U BLOOD NEGATIVE NEGATIVE [facility] U NITRITE NEGATIVE NEGATIVE [facility] U UROBILINOGEN <2.0 0.2 - 1.0 EU/DL [facility] U LEUKOCYTE GLORIA NEGATIVE NEGATIVE [facility] 06/01/2007 10:0 0 AM EST 06/01/2007 10:00 AM EST Woo Lerner Jr., MD/MPH URINE ORDERABL ES Final Result Performing Organization Address [facility] Co de Phone Number [facility] documented in this encounter Visit Diagnoses Diagnosis Neurogenic bladder, NOS documented in this encounter Care Teams Organ Teacher Relationship Specialty Start Date End Date Job Delgado MD [address] [facility] [address] [place] [address] PCP - General External Family Practice 01/07/14 documented as of this encounter
--- OUTSIDE RECORDS SUMMARY | 2025-03-31 11:38 | XMS_ITS | Encounter Summary ---
Author Organization [facility] Address [facility] [place] [address] Care Team Providers Care Assistant Front End Manager Name Role Phone Job Delgado MD Primary Care Provider [phone] Encounter Details Date Type Department Care Team (Late st Contact Info) Description 10/23/2010 Abstract [facility] Division of Pediatric Neurosurgery [address] [place] [phone] Magali Santa, RN Social History Tobacco [...] is now followed by Dr. Rosa at [facility]. Bernardo has had skin grafts in the [...] on filedocumented in this encounter Care Teams Assistant Front End Manager Relationship Specialty Start Date End Date Job Delgado MD [address] [facility] [address] [place] [address] PCP - General External Family Practice 01/07/14 documented as of this encounter
--- OUTSIDE RECORDS SUMMARY | 2025-03-31 11:38 | XMS_ITS | Encounter Summary ---
Author Organization [facility] Address [facility] [place] [address] Care Team Providers Care Scorer Single Name Role Phone Job Delgado MD Primary Care Provider [phone] Encounter Details Date Type Department Care Team (Late st Contact Info) Description 10/28/2012 Abstract [facility] Division of Pediatric Urology [address] [place] [phone] Building Performance Consultant, [facility] Social History Tobacco Use Types Packs/Day [...] encounter Progress Notes * Cookie Reid RN, TRADE MARK EXAMINER - 10/28/2012 12:25 PM EDT Reviewed, see [...] catch procedure (specimen) 10/15/2012 2:38 PM EDT [facility] Provider EXTERNAL LAB ORDERABLES Gricelda l [...] on filedocumented in this encounter Care Teams Scorer Single Relationship Specialty Start Date End Date Job Delgado MD [facility] [place] [address] [address] [place] [address] PCP - General External Family Practice 01/07/14 documented as of this encounter
--- OUTSIDE RECORDS SUMMARY | 2025-03-31 11:38 | XMS_ITS | Encounter Summary ---
Author Organization [facility] Address [facility] [place] [address] Care Team Providers Care Commercial Analyst Name Role Phone Job Delgado MD Primary Care Provider [phone] Encounter Details Date Type Department Care Team (Late st Contact Info) Description 12/17/2012 Abstract [facility] Division of Pediatric Urology [address] [place] [phone] Writer, [facility] Social History Tobacco Use Types [...] EXT PHOSPHORUS, UR EXT MICROALBUMIN, URINE EXT [id number], UR EXT PROTEIN, 24 HR UR EXT [...] on filedocumented in this encounter Care Teams Commercial Analyst Relationship Specialty Start Date End Date Job Delgado MD [address] [facility] [address] [place] [id number] PCP - General External Family Practice 01/07/14 documented as of this encounter
--- OUTSIDE RECORDS SUMMARY | 2025-03-31 11:38 | XMS_ITS | Clinical Summary ---
Author Organization [facility] Address [address] [place] [address] Care Team Providers Care Software Support Specialist Name Role Phone Job Delgado MD Primary Care Provider [phone] Source Comments [facility] is fully rolled out with thefollowing exceptions:[facility] Allergies Active Allergy Reactions Criticality Noted [...] this topic Medical Devices Implanted Type Area Printer Maintainer Device Identifier Shelf Expiration Date Model / Serial / Lot Graft Duragen Plus 1x3 - [id number] Implanted:Qt y: 1 on 11/02/2010 at [facility] Human Tissue N/A: Back [employer] 07/03/2013 DP-1013 / N/A / [id number] Bone Graft Infuse Lg - [id number] Implanted:Qt y: 1 on 11/02/2010 at [facility] Human Tissue N/A: Back [employer] 02/02/2013 [id number] / N/A / [id number] Puty Dbx-Dbm 10ml - [id number] Implanted:Qt y: 2 on 11/02/2010 at [facility] Human Tissue [employer] 02-3110 / / Wire [place] Dbl 18g - [id number] Implanted:Qt y: 10 on 11/02/2010 at [facility] Neurosurgical N/A: Back [employer] [id number] / [id number] / [id number] Renard [place] Spinal Prebent 1/4in - [id number] Implanted:Qt y: 2 on 11/02/2010 at [facility] Neurosurgical N/A: Back [employer] 11/03/2011 [id number] / N/A / N/A 5f Sfx Cross 6wect Implanted:Qt y: 1 on 11/02/2010 at [facility] Orthopedic N/A: Back 11/03/2011 [id number] / N/A / N/A Wire [place] Button 20g - [id number] Implanted:Qt y: 1 on 11/02/2010 at [facility] Orthopedic N/A: Back [employer] 11/03/2011 [id number] / N/A / N/A Insurance LULI GUIDO NON-TRADITIONAL Member Subscriber Plan / Payer (Ef fective 2010-Present) Name:Bernardo Ochoa Relation to Subscriber:Child Name:POLLY OCHOA Date of :1968 (Home) Address: [place] [address] Payer ID:[id number] (NAIC) Type:O Address: [id number] MEDICAID Care Teams Software Support Specialist Relationship Specialty Start Date End Date Job Delgado MD [facility] [place] [address] [address] [place] [address] PCP - General External Family Practice 01/07/14
--- OUTSIDE RECORDS SUMMARY | 2025-03-31 11:38 | XMS_ITS | Clinical Summary ---
Author Organization [facility] Address [address] [place] [address] Care Team Providers Care Flitch Hanger Name Role Phone Unavailable Primary Care Provider [...]
[2025-03-31 11:50] VITALS: BP 117/85; PULSE 84; RESP 18; TEMP 36.8; O2SAT 96
[2025-03-31 12:58] VITALS: BP 110/74; PULSE 78; RESP 18; TEMP 36.8; O2SAT 100
== END 2025-03-31 13:00 | disposition home or self-care (01) ==
LOC: INF 11:37
PROVIDERS: PCP Internal Medicine Adolescent Medicine; Visit Provider Nurse Practitioner Family
DX: N39.0 Urinary tract infection, site not specified (principal); B96.5 Pseudomonas (aeruginosa) (mallei) (pseudomallei) as the cause of diseases classified elsewhere
CPT/HCPCS: 96365; J3260

== ENCOUNTER 2025-04-01 11:26 | Outpatient (CLI) | payer MEDICAID, SELFPAY ==
--- OUTSIDE RECORDS SUMMARY | 2004-08-20 23:00 | XMS_ITS | Encounter Summary ---
Author Organization [facility] Address [address] [place] [address] Care Team Providers Care Pet Sitting Name Role Phone Unavailable Primary Care Provider Unavailabl e Encounter Details Date Type Department Care Team (Late st Contact Info) Description 08/21/2004 Hospital Encounter [facility] Division of Nephrology [address] [place] [phone] Social History Tobacco Use Types Packs/Day [...] Notes * Consent Other - Edt, Audit [place] - 05/10/2009 11:43 AM EST documented in this encounter Plan of Treatment Not on file documented as of this encounter Visit Diagnoses Not on filedocumented in this encounter
--- OUTSIDE RECORDS SUMMARY | 2004-09-27 23:00 | XMS_ITS | Encounter Summary ---
Author Organization [facility] Address [facility] of [facility] [place] [address] Care Team Providers Care Wire Stitcher Machine Name Role Phone Unavailable Primary Care Provider Unavailabl e Encounter Details Date Type Department Care Team (Late st Contact Info) Description 09/28/2004 Hospital Encounter [facility] Department of Radiology [address] [place] [phone] Social History Tobacco Use Types Packs/Day [...] Notes * Consent Other - Edt, Audit [place] - 05/10/2009 11:43 AM EST documented in this encounter Plan of Treatment Not on file documented as of this encounter Visit Diagnoses Not on filedocumented in this encounter
--- OUTSIDE RECORDS SUMMARY | 2004-10-01 23:00 | XMS_ITS | Encounter Summary ---
Author Organization [facility] Address [facility] [place] [address] Care Team Providers Care And Drying Supervisor Cooking Casing Name Role Phone Unavailable Primary Care Provider Unavailabl e Encounter Details Date Type Department Care Team (Late st Contact Info) Description 10/02/2004 Hospital Encounter [facility] [place] [facility] Department of Radiology [address] [place] [phone] Social History Tobacco Use Types Packs/Day [...] Notes * Consent Other - Edt, Audit [place] - 05/10/2009 11:43 AM EST documented in this encounter Plan of Treatment Not on file documented as of this encounter Visit Diagnoses Not on filedocumented in this encounter
--- OUTSIDE RECORDS SUMMARY | 2005-06-21 | XMS_ITS | Encounter Summary ---
Author Organization [facility] Address [address] [place] [address] Care Team Providers Care Audit Mgr Name Role Phone Unavailable Primary Care Provider Unavailabl e Encounter Details Date Type Department Care Team (Late st Contact Info) Description 06/21/2005 Hospital Encounter [facility] Department of Radiology [address] [place] [phone] Social History Tobacco Use Types Packs/Day [...]
--- OUTSIDE RECORDS SUMMARY | 2005-08-05 23:00 | XMS_ITS | Encounter Summary ---
Author Organization [facility] Address [address] [place] [address] Care Team Providers Care Equipment Maintenance Engineer Name Role Phone Unavailable Primary Care Provider Unavailabl e Encounter Details Date Type Department Care Team (Late st Contact Info) Description 08/06/2005 Hospital Encounter [facility] Department of Radiology [address] [place] [phone] Social History Tobacco Use Types Packs/Day [...]
--- OUTSIDE RECORDS SUMMARY | 2005-09-16 23:00 | XMS_ITS | Encounter Summary ---
Author Organization [facility] Address [address] [place] [address] Care Team Providers Care Finance Effectiveness Manager Name Role Phone Unavailable Primary Care Provider Unavailabl e Encounter Details Date Type Department Care Team (Late st Contact Info) Description 09/17/2005 Hospital Encounter [facility] Department of Radiology [address] [place] [phone] Social History Tobacco Use Types Packs/Day [...]
--- OUTSIDE RECORDS SUMMARY | 2005-09-16 23:00 | XMS_ITS | Encounter Summary ---
Author Organization [facility] Address [address] [place] [address] Care Team Providers Care Drywall Finisher Foreman Name Role Phone Unavailable Primary Care Provider Unavailabl e Encounter Details Date Type Department Care Team (Late st Contact Info) Description 09/17/2005 Hospital Encounter [facility] Division of Cardiology [address] [place] [phone] Social History Tobacco Use Types Packs/Day [...]
--- OUTSIDE RECORDS SUMMARY | 2006-05-16 | XMS_ITS | Encounter Summary ---
Author Organization [facility] Address [address] [place] [address] Care Team Providers Care Filter Tank Operator Name Role Phone Unavailable Primary Care Provider Unavailabl e Encounter Details Date Type Department Care Team (Late st Contact Info) Description 05/16/2006 Hospital Encounter [facility] Department of Radiology [address] [place] [phone] Social History Tobacco Use Types Packs/Day [...]
--- OUTSIDE RECORDS SUMMARY | 2025-04-01 11:29 | XMS_ITS | Encounter Summary ---
Author Organization [facility] Address [facility]3 [place] [address] Care Team Providers Care Damage Adjuster Name Role Phone Job Delgado MD Primary Care Provider [phone] Encounter Details Date Type Department Care Team (Late st Contact Info) Description 12/17/2012 Abstract [facility] Division of Pediatric Urology [address] [place] [phone] Swedger, [facility] Social History Tobacco Use Types Packs/Day Years [...] EXT PHOSPHORUS, UR EXT MICROALBUMIN, URINE EXT [id number], UR EXT PROTEIN, 24 HR UR EXT [...] on filedocumented in this encounter Care Teams Damage Adjuster Relationship Specialty Start Date End Date Job Delgado MD [address] [facility] [address] [place] [id number] PCP - General External Family Practice 01/07/14 documented as of this encounter
--- OUTSIDE RECORDS SUMMARY | 2025-04-01 11:29 | XMS_ITS | Encounter Summary ---
Author Organization [facility] Address [facility] [place] [address] Care Team Providers Care Work And Family Life Consultant Name Role Phone Job Delgado MD Primary Care Provider [phone] Encounter Details Date Type Department Care Team (Late st Contact Info) Description 10/28/2012 Abstract [facility] Division of Pediatric Urology [address] [place] [phone] Financial Services Assistant, [facility] Social History Tobacco [...] encounter Progress Notes * Cookie Reid RN, INSEMINATOR - 10/28/2012 12:25 PM EDT Reviewed, see [...] catch procedure (specimen) 10/15/2012 2:38 PM EDT [facility] Provider EXTERNAL LAB ORDERABLES Gricelda l [...] on filedocumented in this encounter Care Teams Work And Family Life Consultant Relationship Specialty Start Date End Date Job Delgado MD [facility] [place] [address] [address] [place] [address] PCP - General External Family Practice 01/07/14 documented as of this encounter
--- OUTSIDE RECORDS SUMMARY | 2025-04-01 11:29 | XMS_ITS | Encounter Summary ---
Author Organization [facility] Address [address] [place] [address] Care Team Providers Care Field Liability Generalist Name Role Phone Job Delgado MD Primary Care Provider [phone] Encounter Details Date Type Department Care Team (Late st Contact Info) Description 06/01/2007 Office Visit [facility] Division of Pediatric Urology [address] [place] [phone] Woo Lerner Jr., MD/MPH Urology [address] [place] [address] Neurogenic Bladder, NOS Social History Tobacco Use Types Packs/Day Years Used Date Smoking Tobacco: Never Assessed Sex and Gender Information Value Date Recorded Sex Assigned at Not on file Legal Sex Male 5:13 AM EST Gender Identity Not on file Sexual Orientation Not on file documented as of this encounter Procedure Notes * Joey Senior Clinical Data Coordinator - 11/26/2007 2:51 PM EDT documented in this encounter Plan of Treatment Not on file documented as of this encounter Procedures Procedure Name Priority Date/Time Associated Diagnosis Comments URINE CULTURE Routine 06/01/2007 10:00 AM EST URINALYSIS CHEMICAL ONLY Routine 06/01/2007 10:00 AM EST documented in this encounter Results * CULTURE, URINE (06/01/2007 10:00 AM EST) URINE CULTURE Source: CATHETERIZED URINE, IN AND OUT [facility] URINE CULTURE Procedure: URINE CULTURE Collected: 999 [facility] URINE CULTURE Received: 1025 [facility] URINE CULTURE FINAL REPORT [facility] URINE CULTURE FINAL REPORT 113 [id number] [facility] URINE CULTURE NO GROWTH <1,000 CFU/ML [facility] 06/01/2007 10:0 0 AM EST 06/01/2007 10:00 AM EST Woo Lerner Jr., MD/MPH MICRO CULTURE ORDERABLES Final Result Performing Organization Address [facility] de Phone Number [facility] * URINALYSIS CHEMICAL ONLY (06/01/2007 10:00 AM EST) U APPEARANCE CLEAR CLEAR [facility] U COLOR YELLOW [facility] SPECIFIC GRAVITY BY REFRACTOMETRY 1.023 1.005 - 1.030 [facility] Comment: (02/19/01 -- Current) SPECIFIC GRAVITY REFERENCE RANGE 1.005 - 1.030 U PH 6.0 5.0 - 8.0 [facility] U PROTEIN NEGATIVE NEGATIVE MG/DL [facility] U GLUCOSE NEGATIVE NEGATIVE MG/DL [facility] U KETONES NEGATIVE NEGATIVE MG/DL [facility] U BILI NEGATIVE NEGATIVE [facility] U BLOOD NEGATIVE NEGATIVE [facility] U NITRITE NEGATIVE NEGATIVE [facility] U UROBILINOGEN <2.0 0.2 - 1.0 EU/DL [facility] U LEUKOCYTE GLORIA NEGATIVE NEGATIVE [facility] 06/01/2007 10:0 0 AM EST 06/01/2007 10:00 AM EST Woo Lerner Jr., MD/MPH URINE ORDERABL ES Final Result Performing Organization Address [facility] Co de Phone Number [facility] documented in this encounter Visit Diagnoses Diagnosis Neurogenic bladder, NOS documented in this encounter Care Teams Field Liability Generalist Relationship Specialty Start Date End Date Job Delgado MD [address] [facility] [address] [place] [address] PCP - General External Family Practice 01/07/14 documented as of this encounter
--- OUTSIDE RECORDS SUMMARY | 2025-04-01 11:29 | XMS_ITS | Clinical Summary ---
Author Organization [facility] Address [address] [place] [address] Care Team Providers Care Color Coater Name Role Phone Job Delgado MD Primary Care Provider Source Comments [facility] is fully rolled out with thefollowing exceptions:[facility] Allergies Active Allergy Reactions Criticality Noted [...] this topic Medical Devices Implanted Type Area Medication Care Manager Device Identifier Shelf Expiration Date Model / Serial / Lot Graft Duragen Plus 1x3 - [id number] Implanted:Qt y: 1 on 11/02/2010 at [facility] Human Tissue N/A: Back [employer] 07/03/2013 DP-1013 / N/A / [id number] Bone Graft Infuse Lg - [id number] Implanted:Qt y: 1 on 11/02/2010 at [facility] Human Tissue N/A: Back [employer] 02/02/2013 [id number] / N/A / [id number] Puty Dbx-Dbm 10ml - [id number] Implanted:Qt y: 2 on 11/02/2010 at [facility] Human Tissue [employer] 02-3110 / / Wire [place] Dbl 18g - [id number] Implanted:Qt y: 10 on 11/02/2010 at [facility] Neurosurgical N/A: Back [employer] [id number] / [id number] / [id number] Renard [place] Spinal Prebent 1/4in - [id number] Implanted:Qt y: 2 on 11/02/2010 at [facility] Neurosurgical N/A: Back [employer] 11/03/2011 [id number] / N/A / N/A 5f Sfx Cross 6wect Implanted:Qt y: 1 on 11/02/2010 at [facility] Orthopedic N/A: Back 11/03/2011 [id number] / N/A / N/A Wire [place] Button 20g - [id number] Implanted:Qt y: 1 on 11/02/2010 at [facility] Orthopedic N/A: Back [employer] 11/03/2011 [id number] / N/A / N/A Insurance LULI GUIDO NON-TRADITIONAL Member Subscriber Plan / Payer (Ef fective 2010-Present) Name:Bernardo Ochoa Relation to Subscriber:Child Name:POLLY OCHOA Date of :1967 (Home) Address: [place] [address] Payer ID:[id number] (NAIC) Type:O Address: [address] MEDICAID Care Teams Color Coater Relationship Specialty Start Date End Date Job Delgado MD Counts include 234 beds at the [facility] [place] [address] [address] [place] [address] PCP - General External Family Practice 01/07/14
--- OUTSIDE RECORDS SUMMARY | 2025-04-01 11:29 | XMS_ITS | Encounter Summary ---
Author Organization [facility] Address [facility] [place] [address] Care Team Providers Care Certified Medical Coding Specialist Name Role Phone Job Delgado MD Primary Care Provider [phone] Encounter Details Date Type Department Care Team (Late st Contact Info) Description 10/23/2010 Abstract [facility] Division of Pediatric Neurosurgery [address] [place] [phone] Magali Santa, RN Social History Tobacco [...] is now followed by Dr. Rosa at [facility]. Bernardo has had skin grafts [...] on filedocumented in this encounter Care Teams Certified Medical Coding Specialist Relationship Specialty Start Date End Date Job Delgado MD [address] [facility] [address] [place] [address] PCP - General External Family Practice 01/07/14 documented as of this encounter
--- OUTSIDE RECORDS SUMMARY | 2025-04-01 11:29 | XMS_ITS | Data Portability ---
Author Organization [facility] William MESA CLOSED Address [address] [facility] [address] [place] [address] Assessment Encounter Date Assessment Date Assessment LastModified [...] prepped and draped in standard fashion. The 19-Comoran cystoscope sheath was introduced with a 30 [...] cystoscope was withdrawn and fashioned to 16 Comoran latex free [place] catheter placed this over the wire into [...] antifungal cream for candidiasis of skin folds. [email or web address] Not available 10/07/2021 12:12:08 Plan of Treatment Reminders Order Date Submit Date Provider Last Modified By Organization Details Last Modified Time Details Appointments None recorded. Lab None recorded. Referral None recorded. Procedures None recorded. Surgeries None recorded. Imaging None recorded. Medication Orders clotrimazol e-betametha sone 1 %-0.05 % topical cream 2021 022 [facility], [address] [place] [address], [id number], 12:31:08 methenamine hippurate 1 gram tablet 2021 022 [facility], [address] [place] [address], [id number], 12:31:08 Patient TargetsNo targets recorded. Patient Instructions Encounter Date Encounter Id Patient Instructions Last Modified By Organization Details Last Modified Time 07/19/2019 [id number] neurogenic bladder: care instructions [email or web address] Not available 07/19/2019 12:04:05 Reason for Referral None Reported. Results Created Date Observation Date Name Description Value Unit Range Abnormal Flag Note LastModifiedBy Organization Detail LastModifiedTime 05/16/19 18 04/25/2017 CT, abdom en + pelvi s, w/o contr ast No observ ation record ed. [facility] ([facility]) [address], [place], [address], 05/16/2017 16:58:32 02/11/20 18 02/10/2018 abhi GARCIA er No observ ation record ed. [email or web address] [facility] [address] [place] [address] [address], [place], [id number], 02/11/2018 12:18:14 02/11/20 18 02/10/2018 US, retro perit oneum , compl ete No observ ation record ed. [email or web address] [address], [place], [address], 02/11/2018 12:18:49 01/26/20 19 11/16/2018 US, abdom en, compl ete No observ ation record ed. [facility] [address], [place], [address], 01/25/2019 12:17:02 Result Notes None recorded. Procedures Surgical History Date Name Laterality Status Provider Name and Address Organization Details Recorded Time 8 ASPIRATION, BLADDER, INSERTION OF SUPRAPUBIC CATHETER (SURG) completed Vineet Craft [facility] 06/13/2017 13:52:42 7 ASPIRATION, BLADDER, INSERTION OF SUPRAPUBIC CATHETER (SURG) completed GREGG HARRISON MD [address] [place] [address], [phone], [facility] 09/02/2016 12:34:34 Imaging Results None recorded. Procedure Notes None recorded. Medical Equipment None Reported. Allergies Allergen ID Allergen Name Allergen Category Reaction Reaction Severity Criticality Documentation Date Start Date Code Code System Note Provider Name and Address Organization Details Recorded Time 298763 latex environme nt,medica tion Not available Not available Not available 07/19/2019 64963 91 RxNorm Stephanie Bentleyroseann [facility] 0 11:36:14 890262 banana extract food,medi cation Not available Not available Not available 07/19/2019 92849 9 RxNorm Stephanie Bentleyroseann [facility] 0 11:36:20 Medications Name Sig Start [...] Address Organization Details Last Updated DateTime 07/19/2019 59969.16 g Stephanie Jimmy [facility] 07/19/2019 11:36:08 Date Recorded Body weight Provider Name an d Address Organization Details Last Updated DateTime 10/05/2021 08610.16 g Jerilyn Navi [facility] 0 10/05/2021 11:53:59 Social History Question Answer Notes LastModified by Organizat ion Details LastModified Time Tobacco Smoking Status Never Smoker Stephanie Marquez [facility] 07/19/2019 11:36:42 How Much Tobacco Do You [...] Time Father No current problems or disability [email or web address] Not available 10/05 11:54:27 Mother No current problems or disability [email or web address] Not available 10/05 11:54:27 Medical History No medical history recorded. Past Encounters Encounter ID Performer Location Encounter Start Date Encounter Closed Date Diagnosis/Indication Diagnosis SNOMED-CT Code Diagnosis ICD10 Code Diagnosis IMO Codes Diagnosis Note [id number] GREGG HARRISON MD SURGERY SCHEDULE [address] [place] [address] 04/30/2017 09:50:01 04/30/2017 09:55:53 [id number] MD [facility]INE [facility] [address] [facility] [place] [address] 07/19/2019 11:00:47 07/19/2019 11:47:58 Neurogenic urinary bladder 609708280 N31.9 continue suprapubic catheter. Chronic cystitis 7638216 2 N30.20 plan as above. His mother will contact me for results. [id number] MD ALINE SWEENEY [facility] [address] [facility] [place] [address] 10/05/2021 11:25:55 10/05/2021 12:21:17 Candidiasis of skin 31126380 B37.2 Recurrent urinary tract infection 753398527 N39.0 Neurogenic urinary bladder 765771929 N31.9 Health Concerns Section Related Observation LastModified by Organization Detai ls LastModified Time None Recorded Concern Status LastModified by Organization Details LastModified Time None Recorded Advance Directives Directive None Recorded Payers Insurance Date Sequence Insurance Name Policy Number Policy Gale Covered Member ID Gale Member ID Guarantor Name 12/03/2021 1 [place] FFS/TRADITIO NAL Bernardo Blake [id number] Bernardo Blake 10/05/2021 1 [place] [id number] Aaron Blake [id number] Bernardo Blake Notes Date Note Type Note Provider Name and Address Organization Details Recorded Time 07/19/2019 text/html [facility]. He is 23 years of age and [...] for genetic urinary testing. GREGG HARRISON MD [address] [place] [address], [phone], [facility] 07/19/2019 12:04:24 10/05/2021 text/html 25-year-old male, [...] fold of lower abdomen. EFRAÍN GONZALEZ MD [address] [place] [address], [phone], [facility] 10/07/2021 12:12:25
--- OUTSIDE RECORDS SUMMARY | 2025-04-01 11:29 | XMS_ITS | Clinical Summary ---
Author Organization [facility] Address [address] [place] [address] Care Team Providers Care Director Of Teaching And Learning Name Role Phone Unavailable Primary Care Provider [...]
[2025-04-01 11:44] VITALS: BP 124/67; PULSE 84; RESP 16; TEMP 36.6; O2SAT 98
[2025-04-01 13:11] VITALS: BP 124/60; PULSE 72; RESP 20; O2SAT 99
== END 2025-04-01 13:11 | disposition home or self-care (01) ==
LOC: INF 11:28
PROVIDERS: PCP Internal Medicine Adolescent Medicine; Visit Provider Nurse Practitioner Family
DX: N39.0 Urinary tract infection, site not specified (principal); B96.5 Pseudomonas (aeruginosa) (mallei) (pseudomallei) as the cause of diseases classified elsewhere
CPT/HCPCS: 96365; J3260

== ENCOUNTER 2025-04-02 12:00 | Outpatient (CLI) | payer MEDICAID, SELFPAY ==
[2025-04-02] MEDS: SODIUM CHLORIDE 0.9% 10ML FLUSH SYRINGE 10 ML IV (12:21)
== END 2025-04-02 13:30 | disposition home or self-care (01) ==
PROVIDERS: PCP Internal Medicine Adolescent Medicine; Visit Provider Nurse Practitioner Family
DX: N39.0 Urinary tract infection, site not specified (principal); B96.5 Pseudomonas (aeruginosa) (mallei) (pseudomallei) as the cause of diseases classified elsewhere
CPT/HCPCS: 96365; J3260

== ENCOUNTER 2025-04-03 13:06 | Outpatient (CLI) | payer MEDICAID, SELFPAY ==
--- OUTSIDE RECORDS SUMMARY | 2004-08-20 23:00 | XMS_ITS | Encounter Summary ---
Author Organization [facility] Address [address] [place] [address] Care Team Providers Care Diesel Truck Crane Operator Name Role Phone Unavailable Primary Care Provider Unavailabl e Encounter Details Date Type Department Care Team (Late st Contact Info) Description 08/21/2004 Hospital Encounter [facility] Division of Nephrology [address] [place] [phone] Social History Tobacco Use Types Packs/Day [...] Notes * Consent Other - Edt, Audit [place] - 05/10/2009 11:43 AM EST documented in this encounter Plan of Treatment Not on file documented as of this encounter Visit Diagnoses Not on filedocumented in this encounter
--- OUTSIDE RECORDS SUMMARY | 2004-09-27 23:00 | XMS_ITS | Encounter Summary ---
Author Organization [facility] Address [facility] [place] [address] Care Team Providers Care Photographic Process Attendant Name Role Phone Unavailable Primary Care Provider Unavailabl e Encounter Details Date Type Department Care Team (Late st Contact Info) Description 09/28/2004 Hospital Encounter [facility] Department of Radiology [address] [place] [phone] Social History Tobacco Use Types Packs/Day [...] Notes * Consent Other - Edt, Audit [place] - 05/10/2009 11:43 AM EST documented in this encounter Plan of Treatment Not on file documented as of this encounter Visit Diagnoses Not on filedocumented in this encounter
--- OUTSIDE RECORDS SUMMARY | 2004-10-01 23:00 | XMS_ITS | Encounter Summary ---
Author Organization [facility] Address [facility] [place] [address] Care Team Providers Care Service Superintendent Name Role Phone Unavailable Primary Care Provider Unavailabl e Encounter Details Date Type Department Care Team (Late st Contact Info) Description 10/02/2004 Hospital Encounter [facility] Department of Radiology [address] [place] [phone] Social History Tobacco Use Types Packs/Day [...] Notes * Consent Other - Edt, Audit [place] - 05/10/2009 11:43 AM EST documented in this encounter Plan of Treatment Not on file documented as of this encounter Visit Diagnoses Not on filedocumented in this encounter
--- OUTSIDE RECORDS SUMMARY | 2005-06-21 | XMS_ITS | Encounter Summary ---
Author Organization [facility] Address [address] [place] [address] Care Team Providers Care Cap Sizer Name Role Phone Unavailable Primary Care Provider Unavailabl e Encounter Details Date Type Department Care Team (Late st Contact Info) Description 06/21/2005 Hospital Encounter [facility] Department of Radiology [address] [place] [phone] Social History Tobacco Use Types Packs/Day [...]
--- OUTSIDE RECORDS SUMMARY | 2005-08-05 23:00 | XMS_ITS | Encounter Summary ---
Author Organization [facility] Address [address] [place] [address] Care Team Providers Care Radio Installer Automobile Name Role Phone Unavailable Primary Care Provider Unavailabl e Encounter Details Date Type Department Care Team (Late st Contact Info) Description 08/06/2005 Hospital Encounter [facility] Department of Radiology [address] [place] [phone] Social History Tobacco Use Types Packs/Day [...]
--- OUTSIDE RECORDS SUMMARY | 2005-09-16 23:00 | XMS_ITS | Encounter Summary ---
Author Organization [facility] Address [address] [place] [address] Care Team Providers Care Assistant Produce Manager Name Role Phone Unavailable Primary Care Provider Unavailabl e Encounter Details Date Type Department Care Team (Late st Contact Info) Description 09/17/2005 Hospital Encounter [facility] Department of Radiology [address] [place] [phone] Social History Tobacco Use Types Packs/Day [...]
--- OUTSIDE RECORDS SUMMARY | 2005-09-16 23:00 | XMS_ITS | Encounter Summary ---
Author Organization [facility] Address [address] [place] [address] Care Team Providers Care Snowsport Instructor Name Role Phone Unavailable Primary Care Provider Unavailabl e Encounter Details Date Type Department Care Team (Late st Contact Info) Description 09/17/2005 Hospital Encounter [facility] Division of Cardiology [address] [place] [phone] Social History Tobacco Use Types Packs/Day [...]
--- OUTSIDE RECORDS SUMMARY | 2006-05-16 | XMS_ITS | Encounter Summary ---
Author Organization [facility] Address [address] [place] [address] Care Team Providers Care Mold Runner Name Role Phone Unavailable Primary Care Provider Unavailabl e Encounter Details Date Type Department Care Team (Late st Contact Info) Description 05/16/2006 Hospital Encounter [facility] Department of Radiology [address] [place] [phone] Social History Tobacco Use Types Packs/Day [...]
--- OUTSIDE RECORDS SUMMARY | 2025-04-03 13:08 | XMS_ITS | Clinical Summary ---
Author Organization [facility] Address [address] [place] [address] Care Team Providers Care Supervisor Long Goods Name Role Phone Job Delgado MD Primary Care Provider Source Comments [facility] is fully rolled out with thefollowing exceptions:[facility] Allergies Active Allergy Reactions Criticality Noted Date [...] this topic Medical Devices Implanted Type Area Planning Specialist Device Identifier Shelf Expiration Date Model / Serial / Lot Graft Duragen Plus 1x3 - [id number] Implanted:Qt y: 1 on 11/02/2010 at [facility] Human Tissue N/A: Back [employer] 07/03/2013 DP-[id number] / N/A / [id number] Bone Graft Infuse Lg - [id number] Implanted:Qt y: 1 on 11/02/2010 at [facility] Human Tissue N/A: Back [employer] 02/02/2013 [id number] / N/A / [id number] Puty Dbx-Dbm 10ml - [id number] Implanted:Qt y: 2 on 11/02/2010 at [facility] Human Tissue [employer] 02-3110 / / Wire [place] Dbl 18g - [id number] Implanted:Qt y: 10 on 11/02/2010 at [facility] Neurosurgical N/A: Back [employer] [id number] / [id number] / [id number] Renard [place] Spinal Prebent 1/4in - [id number] Implanted:Qt y: 2 on 11/02/2010 at [facility] Neurosurgical N/A: Back [employer] 11/03/2011 [id number] / N/A / N/A 5f Sfx Cross 6wect Implanted:Qt y: 1 on 11/02/2010 at [facility] Orthopedic N/A: Back 11/03/2011 [id number] / N/A / N/A Wire [place] Button 20g - [id number] Implanted:Qt y: 1 on 11/02/2010 at [facility] Orthopedic N/A: Back [employer] 11/03/2011 [id number] / N/A / N/A Insurance LULI GUIDO NON-TRADITIONAL Member Subscriber Plan / Payer (Ef fective 2010-Present) Name:Bernardo Ochoa Relation to Subscriber:Child Name:POLLY OCHOA Date of :1968 (Home) Address: [place] [address] Payer ID:[id number] (NAIC) Type:O Address: [address] MEDICAID Care Teams Supervisor Long Goods Relationship Specialty Start Date End Date Job Delgado MD [facility] [place] [address] [address] [place] [address] PCP - General External Family Practice 01/07/14
--- OUTSIDE RECORDS SUMMARY | 2025-04-03 13:08 | XMS_ITS | Encounter Summary ---
Author Organization [facility] Address [facility] [place] [address] Care Team Providers Care Wireless Team Member Name Role Phone Job Delgado MD Primary Care Provider [phone] Encounter Details Date Type Department Care Team (Late st Contact Info) Description 12/17/2012 Abstract [facility] Division of Pediatric Urology [address] [place] [phone] Product Development Assistant, [facility] Social History Tobacco Use Types Packs/Day [...] EXT PHOSPHORUS, UR EXT MICROALBUMIN, URINE EXT 768681O, UR EXT PROTEIN, 24 HR UR EXT [...] on filedocumented in this encounter Care Teams Wireless Team Member Relationship Specialty Start Date End Date Job Delgado MD [address] [facility] [address] [place] [id number] PCP - General External Family Practice 01/07/14 documented as of this encounter
--- OUTSIDE RECORDS SUMMARY | 2025-04-03 13:08 | XMS_ITS | Encounter Summary ---
Author Organization [facility] Address [facility] [place] [address] Care Team Providers Care Head Of History Name Role Phone Job Delgado MD Primary Care Provider [phone] Encounter Details Date Type Department Care Team (Late st Contact Info) Description 10/28/2012 Abstract [facility] Division of Pediatric Urology [address] [place] [phone] Vender, [facility] Social History Tobacco Use Types Packs/Day [...] encounter Progress Notes * Cookie Reid RN, KAI WHAKARURUHAU - 10/28/2012 12:25 PM EDT Reviewed, see [...] catch procedure (specimen) 10/15/2012 2:38 PM EDT [facility] Provider EXTERNAL LAB ORDERABLES Gricelda l [...] on filedocumented in this encounter Care Teams Head Of History Relationship Specialty Start Date End Date Job Delgado MD [facility] [place] [address] [address] [place] [address] PCP - General External Family Practice 01/07/14 documented as of this encounter
--- OUTSIDE RECORDS SUMMARY | 2025-04-03 13:08 | XMS_ITS | Encounter Summary ---
Author Organization [facility] Address [address] [place] [address] Care Team Providers Care Gauge And Weigh Machine Operator Name Role Phone Job Delgado MD Primary Care Provider [phone] Encounter Details Date Type Department Care Team (Late st Contact Info) Description 06/01/2007 Office Visit [facility] Division of Pediatric Urology [address] [place] [phone] Woo Lerner Jr., MD/MPH Urology [address] [place] [address] Neurogenic Bladder, NOS Social History Tobacco Use Types Packs/Day Years Used Date Smoking Tobacco: Never Assessed Sex and Gender Information Value Date Recorded Sex Assigned at Not on file Legal Sex Male 5:13 AM EST Gender Identity Not on file Sexual Orientation Not on file documented as of this encounter Procedure Notes * Joey Contract Design Agent - 11/26/2007 2:51 PM EDT documented in this encounter Plan of Treatment Not on file documented as of this encounter Procedures Procedure Name Priority Date/Time Associated Diagnosis Comments URINE CULTURE Routine 06/01/2007 10:00 AM EST URINALYSIS CHEMICAL ONLY Routine 06/01/2007 10:00 AM EST documented in this encounter Results * CULTURE, URINE (06/01/2007 10:00 AM EST) URINE CULTURE Source: CATHETERIZED URINE, IN AND OUT [facility] URINE CULTURE Procedure: URINE CULTURE Collected: 999 [facility] URINE CULTURE Received: 1025 [facility] URINE CULTURE FINAL REPORT [facility] URINE CULTURE FINAL REPORT 113 [id number] [facility] URINE CULTURE NO GROWTH <1,000 CFU/ML [facility] 06/01/2007 10:0 0 AM EST 06/01/2007 10:00 AM EST Woo Lerner Jr., MD/MPH MICRO CULTURE ORDERABLES Final Result Performing Organization Address [facility] de Phone Number [facility] * URINALYSIS CHEMICAL ONLY (06/01/2007 10:00 AM EST) U APPEARANCE CLEAR CLEAR [facility] U COLOR YELLOW [facility] SPECIFIC GRAVITY BY REFRACTOMETRY 1.023 1.005 - 1.030 [facility] Comment: (02/19/01 -- Current) SPECIFIC GRAVITY REFERENCE RANGE 1.005 - 1.030 U PH 6.0 5.0 - 8.0 [facility] U PROTEIN NEGATIVE NEGATIVE MG/DL [facility] U GLUCOSE NEGATIVE NEGATIVE MG/DL [facility] U KETONES NEGATIVE NEGATIVE MG/DL [facility] U BILI NEGATIVE NEGATIVE [facility] U BLOOD NEGATIVE NEGATIVE [facility] U NITRITE NEGATIVE NEGATIVE [facility] U UROBILINOGEN <2.0 0.2 - 1.0 EU/DL [facility] U LEUKOCYTE GLORIA NEGATIVE NEGATIVE CC M [facility]ATORY 06/01/2007 10:0 0 AM EST 06/01/2007 10:00 AM EST Woo Lerner Jr., MD/MPH URINE ORDERABL ES Final Result Performing Organization Address [facility] Co de Phone Number [facility] documented in this encounter Visit Diagnoses Diagnosis Neurogenic bladder, NOS documented in this encounter Care Teams Gauge And Weigh Machine Operator Relationship Specialty Start Date End Date Job Delgado MD [address] [facility] [address] [place] [address] PCP - General External Family Practice 01/07/14 documented as of this encounter
--- OUTSIDE RECORDS SUMMARY | 2025-04-03 13:08 | XMS_ITS | Data Portability ---
Author Organization [facility] William FLUSHING CLOSED Address [address] [facility] [address] [place] [address] Assessment Encounter Date Assessment Date Assessment LastModified [...] prepped and draped in standard fashion. The 19-Ecuadorean cystoscope sheath was introduced with a 30 [...] cystoscope was withdrawn and fashioned to 16 Ecuadorean latex free [place] catheter placed this over the wire into [...] antifungal cream for candidiasis of skin folds. [email or web address] Not available 10/07/2021 12:12:08 Plan of Treatment Reminders Order Date Submit Date Provider Last Modified By Organization Details Last Modified Time Details Appointments None recorded. Lab None recorded. Referral None recorded. Procedures None recorded. Surgeries None recorded. Imaging None recorded. Medication Orders clotrimazol e-betametha sone 1 %-0.05 % topical cream 2021 022 [employer], [address] [place] [address], [id number], 12:31:08 methenamine hippurate 1 gram tablet 2021 022 [employer], [address] [place] [address], [id number], 12:31:08 Patient TargetsNo targets recorded. Patient Instructions Encounter Date Encounter Id Patient Instructions Last Modified By Organization Details Last Modified Time 07/19/2019 [id number] neurogenic bladder: care instructions [email or web address] Not available 07/19/2019 12:04:05 Reason for Referral None Reported. Results Created Date Observation Date Name Description Value Unit Range Abnormal Flag Note LastModifiedBy Organization Detail LastModifiedTime 05/16/19 18 04/25/2017 CT, abdom en + pelvi s, w/o contr ast No observ ation record ed. [facility] ([facility]) [address], [place], [address], 05/16/2017 16:58:32 02/11/20 18 02/10/2018 abhi GARCIA er No observ ation record ed. [facility] [address] [place] [address] [address], [place], [id number], 02/11/2018 12:18:14 02/11/20 18 02/10/2018 US, retro perit oneum , compl ete No observ ation record ed. [email or web address] [address], [place], [address], 02/11/2018 12:18:49 01/26/20 19 11/16/2018 US, abdom en, compl ete No observ ation record ed. [facility] [address], [place], [address], 01/25/2019 12:17:02 Result Notes None recorded. Procedures Surgical History Date Name Laterality Status Provider Name and Address Organization Details Recorded Time 8 ASPIRATION, BLADDER, INSERTION OF SUPRAPUBIC CATHETER (SURG) completed Vineet Craft [facility] 06/13/2017 13:52:42 7 ASPIRATION, BLADDER, INSERTION OF SUPRAPUBIC CATHETER (SURG) completed GREGG HARRISON MD [address] [place] [address], [phone], [facility] 09/02/2016 12:34:34 Imaging Results None recorded. Procedure Notes None recorded. Medical Equipment None Reported. Allergies Allergen ID Allergen Name Allergen Category Reaction Reaction Severity Criticality Documentation Date Start Date Code Code System Note Provider Name and Address Organization Details Recorded Time 654582 latex environme nt,medica tion Not available Not available Not available 07/19/2019 11670 91 RxNorm Stephanie Bentleyroseann [facility] 0 11:36:14 993973 banana extract food,medi cation Not available Not available Not available 07/19/2019 47107 9 RxNorm Stephanie Bentleyroseann [facility] 0 11:36:20 Medications Name Sig Start Date [...] Address Organization Details Last Updated DateTime 07/19/2019 57891.16 g Stephanie Jimmy [facility] 07/19/2019 11:36:08 Date Recorded Body weight Provider Name an d Address Organization Details Last Updated DateTime 10/05/2021 09671.16 g Jerilyn Navi [facility] 0 10/05/2021 11:53:59 Social History Question Answer Notes LastModified by Organizat ion Details LastModified Time Tobacco Smoking Status Never Smoker Stephanie Marquez [facility] 07/19/2019 11:36:42 How Much Tobacco Do You [...] Time Father No current problems or disability [email or web address] Not available 10/05 11:54:27 Mother No current problems or disability [email or web address] Not available 10/05 11:54:27 Medical History No medical history recorded. Past Encounters Encounter ID Performer Location Encounter Start Date Encounter Closed Date Diagnosis/Indication Diagnosis SNOMED-CT Code Diagnosis ICD10 Code Diagnosis IMO Codes Diagnosis Note [id number] GREGG HARRISON MD SURGERY SCHEDULE [address] [place] [address] 04/30/2017 09:50:01 04/30/2017 09:55:53 [id number] MD ALINE [facility]ARD [facility] [address] [facility] [place] [address] 07/19/2019 11:00:47 07/19/2019 11:47:58 Neurogenic urinary bladder 622953657 N31.9 continue suprapubic catheter. Chronic cystitis 5771465 2 N30.20 plan as above. His mother will contact me for results. [id number] MD ALINE SWEENEY [facility] [address] [facility] [place] [address] 10/05/2021 11:25:55 10/05/2021 12:21:17 Candidiasis of skin 94302825 B37.2 Recurrent urinary tract infection 476873768 N39.0 Neurogenic urinary bladder 575124585 N31.9 Health Concerns Section Related Observation LastModified by Organization Detai ls LastModified Time None Recorded Concern Status LastModified by Organization Details LastModified Time None Recorded Advance Directives Directive None Recorded Payers Insurance Date Sequence Insurance Name Policy Number Policy Gale Covered Member ID Gale Member ID Guarantor Name 12/03/2021 1 [place]/TRADITIO NAL Bernardo Blake [id number] Bernardo Blake 10/05/2021 1 [place] [id number] Aaron Blake [id number] Bernardo Blake Notes Date Note Type Note Provider Name and Address Organization Details Recorded Time 07/19/2019 text/html patient is typically followed at the [facility]. He is 23 years of age [...] for genetic urinary testing. GREGG HARRISON MD [address] [place] [address], [phone], [facility] 07/19/2019 12:04:24 10/05/2021 text/html 25-year-old male, patient [...] fold of lower abdomen. EFRAÍN GONZALEZ MD [address] [place] [address], [phone], [facility] 10/07/2021 12:12:25
--- OUTSIDE RECORDS SUMMARY | 2025-04-03 13:08 | XMS_ITS | Clinical Summary ---
Author Organization [facility] Address [address] [place] [address] Care Team Providers Care Plant Ecologist Name Role Phone Unavailable Primary Care Provider [...]
--- OUTSIDE RECORDS SUMMARY | 2025-04-03 13:08 | XMS_ITS | Encounter Summary ---
Author Organization [facility] Address [facility] [place] [address] Care Team Providers Care Cigarette Maker Name Role Phone Job Delgado MD Primary Care Provider [phone] Encounter Details Date Type Department Care Team (Late st Contact Info) Description 10/23/2010 Abstract [facility] Division of Pediatric Neurosurgery [address] [place] [phone] Magali Santa, RN Social History Tobacco [...] is now followed by Dr. Rosa at [facility]. Bernardo has had skin grafts in [...] on filedocumented in this encounter Care Teams Cigarette Maker Relationship Specialty Start Date End Date Job Delgado MD [address] [facility] [address] [place] [address] PCP - General External Family Practice 01/07/14 documented as of this encounter
== END 2025-04-03 14:35 | disposition home or self-care (01) ==
PROVIDERS: PCP Internal Medicine Adolescent Medicine; Visit Provider Nurse Practitioner Family
DX: N39.0 Urinary tract infection, site not specified (principal); B96.5 Pseudomonas (aeruginosa) (mallei) (pseudomallei) as the cause of diseases classified elsewhere
CPT/HCPCS: 96365; J3260

== ENCOUNTER 2025-04-04 12:32 | Outpatient (CLI) | payer MEDICAID, SELFPAY ==
--- OUTSIDE RECORDS SUMMARY | 2004-08-20 23:00 | XMS_ITS | Encounter Summary ---
Author Organization [facility] Address [address] [place] [address] Care Team Providers Care Auricular Detoxification Specialist Name Role Phone Unavailable Primary Care Provider Unavailabl e Encounter Details Date Type Department Care Team (Late st Contact Info) Description 08/21/2004 Hospital Encounter [facility] Division of Nephrology [address] [place] [phone] Social History Tobacco Use Types Packs/Day [...] Notes * Consent Other - Edt, Audit [place] - 05/10/2009 11:43 AM EST documented in this encounter Plan of Treatment Not on file documented as of this encounter Visit Diagnoses Not on filedocumented in this encounter
--- OUTSIDE RECORDS SUMMARY | 2004-09-27 23:00 | XMS_ITS | Encounter Summary ---
Author Organization [facility] Address [facility] [place] [address] Care Team Providers Care Swimming Pool Servicer Name Role Phone Unavailable Primary Care Provider Unavailabl e Encounter Details Date Type Department Care Team (Late st Contact Info) Description 09/28/2004 Hospital Encounter [facility] Department of Radiology [address] [place] [phone] Social History Tobacco Use Types Packs/Day [...] Notes * Consent Other - Edt, Audit [place] - 05/10/2009 11:43 AM EST documented in this encounter Plan of Treatment Not on file documented as of this encounter Visit Diagnoses Not on filedocumented in this encounter
--- OUTSIDE RECORDS SUMMARY | 2004-10-01 23:00 | XMS_ITS | Encounter Summary ---
Author Organization [facility] Address [facility] [place] [address] Care Team Providers Care Help Desk Team Leader Name Role Phone Unavailable Primary Care Provider Unavailabl e Encounter Details Date Type Department Care Team (Late st Contact Info) Description 10/02/2004 Hospital Encounter [facility] Department of Radiology [address] [place] [phone] Social History Tobacco Use Types Packs/Day [...] Notes * Consent Other - Edt, Audit [place] - 05/10/2009 11:43 AM EST documented in this encounter Plan of Treatment Not on file documented as of this encounter Visit Diagnoses Not on filedocumented in this encounter
--- OUTSIDE RECORDS SUMMARY | 2005-06-21 | XMS_ITS | Encounter Summary ---
Author Organization [facility] Address [address] [place] [address] Care Team Providers Care Litigation Claim Representative Name Role Phone Unavailable Primary Care Provider Unavailabl e Encounter Details Date Type Department Care Team (Late st Contact Info) Description 06/21/2005 Hospital Encounter [facility] Department of Radiology [address] [place] [phone] Social History Tobacco Use Types Packs/Day [...] on file documented as of this encounter Plan of Treatment Not on file documented as of this encounter Visit Diagnoses Not on filedocumented in this encounter
--- OUTSIDE RECORDS SUMMARY | 2005-08-05 23:00 | XMS_ITS | Encounter Summary ---
Author Organization [facility] Address [address] [place] [address] Care Team Providers Care Chef Teacher Name Role Phone Unavailable Primary Care Provider Unavailabl e Encounter Details Date Type Department Care Team (Late st Contact Info) Description 08/06/[address] [facility] Department of Radiology [address] [place] [phone] Social History Tobacco Use Types Packs/Day [...]
--- OUTSIDE RECORDS SUMMARY | 2005-09-16 23:00 | XMS_ITS | Encounter Summary ---
Author Organization [facility] Address [address] [place] [address] Care Team Providers Care Hedge Fund Trader Name Role Phone Unavailable Primary Care Provider Unavailabl e Encounter Details Date Type Department Care Team (Late st Contact Info) Description 09/17/2005 Hospital Encounter [facility] Department of Radiology [address] [place] [phone] Social History Tobacco Use Types Packs/Day [...]
--- OUTSIDE RECORDS SUMMARY | 2005-09-16 23:00 | XMS_ITS | Encounter Summary ---
Author Organization [facility] Address [address] [place] [address] Care Team Providers Care Wood Engraver Name Role Phone Unavailable Primary Care Provider Unavailabl e Encounter Details Date Type Department Care Team (Late st Contact Info) Description 09/17/[address] [facility] Division of Cardiology [address] [place] [phone] Social History Tobacco Use Types Packs/Day [...]
--- OUTSIDE RECORDS SUMMARY | 2006-05-16 | XMS_ITS | Encounter Summary ---
Author Organization [facility] Address [address] [place] [address] Care Team Providers Care High Pressure Firer Name Role Phone Unavailable Primary Care Provider Unavailabl e Encounter Details Date Type Department Care Team (Late st Contact Info) Description 05/16/[address] [facility] Department of Radiology [address] [place] [phone] Social History Tobacco Use Types Packs/Day [...]
--- OUTSIDE RECORDS SUMMARY | 2025-04-04 12:35 | XMS_ITS | Clinical Summary ---
Author Organization [facility] Address [address] [place] [address] Care Team Providers Care Manager Drug Name Role Phone Job Delgado MD Primary Care Provider [phone] Source Comments [facility] is fully rolled out with thefollowing exceptions:[facility] Allergies Active Allergy Reactions Criticality [...] this topic Medical Devices Implanted Type Area Bag Tester Device Identifier Shelf Expiration Date Model / Serial / Lot Graft Duragen Plus 1x3 - [id number] Implanted:Qt y: 1 on 11/02/2010 at [facility] Human Tissue N/A: Back [employer] 07/03/2013 [id number] / N/A / [id number] Bone Graft Infuse Lg - [id number] Implanted:Qt y: 1 on 11/02/2010 at [facility] Human Tissue N/A: Back [employer] 02/02/2013 [id number] / N/A / [id number] Puty Dbx-Dbm 10ml - [id number] Implanted:Qt y: 2 on 11/02/2010 at [facility] Human Tissue [employer] [id number] / / Wire Marcella Dbl 18g - [id number] Implanted:Qt y: 10 on 11/02/2010 at [facility] Neurosurgical N/A: Back [employer] [id number] / [id number] / [id number] Renard Marcella Spinal Prebent 1/4in - [id number] Implanted:Qt y: 2 on 11/02/2010 at [facility] Neurosurgical N/A: Back [employer] 11/03/2011 [id number] / N/A / N/A 5f Sfx Cross 6wect Implanted:Qt y: 1 on 11/02/2010 at [facility] Orthopedic N/A: Back 11/03/2011 [id number] / N/A / N/A Wire Marcella Button 20g - [id number] Implanted:Qt y: 1 on 11/02/2010 at [facility] Orthopedic N/A: Back [employer] 11/03/2011 [id number] / N/A / N/A Insurance LULI GUIDO NON-TRADITIONAL Member Subscriber Plan / Payer (Ef fective 2010-Present) Name:Bernardo Ochoa Relation to Subscriber:Child Name:POLLY OCHOA Date of :1968 (Home) Address: [place] [address] Payer ID:[id number] (NAIC) Type:O Address: [address] MEDICAID Care Teams Manager Drug Relationship Specialty Start Date End Date Job Delgado MD [facility] [address] [address] [place] [address] PCP - General External Family Practice 01/07/14
--- OUTSIDE RECORDS SUMMARY | 2025-04-04 12:35 | XMS_ITS | Clinical Summary ---
Author Organization [facility] Address [address] [place] [address] Care Team Providers Care Paint Line Operator Name Role Phone Unavailable Primary Care [...]
--- OUTSIDE RECORDS SUMMARY | 2025-04-04 12:35 | XMS_ITS | Encounter Summary ---
Author Organization [facility] Address Formerly [facility] [place] [address] Care Team Providers Care Biology Tutor Name Role Phone Job Delgado MD Primary Care Provider [phone] Encounter Details Date Type Department Care Team (Late st Contact Info) Description 12/17/2012 Abstract [facility] Division of Pediatric Urology [address] [place] [phone] Grease Worker, [facility] Social History Tobacco Use [...] EXT PHOSPHORUS, UR EXT MICROALBUMIN, URINE EXT [id number], UR EXT PROTEIN, 24 HR UR EXT [...] on filedocumented in this encounter Care Teams Biology Tutor Relationship Specialty Start Date End Date Job Delgado MD [address] [facility] [address] [place] [id number] PCP - General External Family Practice 01/07/14 documented as of this encounter
--- OUTSIDE RECORDS SUMMARY | 2025-04-04 12:35 | XMS_ITS | Encounter Summary ---
Author Organization [facility] Address Formerly [facility] [place] [address] Care Team Providers Care Oncology Consultant Name Role Phone Job Delgado MD Primary Care Provider [phone] Encounter Details Date Type Department Care Team (Late st Contact Info) Description 10/23/2010 Abstract [facility] Division of Pediatric Neurosurgery [address] [place] [phone] Magali Santa, RN Social History Tobacco [...] is now followed by Dr. Rosa at [facility]. Bernardo has had skin grafts in [...] on filedocumented in this encounter Care Teams Oncology Consultant Relationship Specialty Start Date End Date Job Delgado MD [address] [facility] [address] [place] [address] PCP - General External Family Practice 01/07/14 documented as of this encounter
--- OUTSIDE RECORDS SUMMARY | 2025-04-04 12:35 | XMS_ITS | Encounter Summary ---
Author Organization [facility] Address [address] [place] [address] Care Team Providers Care Variety Saw Operator Name Role Phone Job Delgado MD Primary Care Provider [phone] Encounter Details Date Type Department Care Team (Late st Contact Info) Description 06/01/2007 Office Visit [facility] Division of Pediatric Urology [address] [place] [phone] Woo Lerner Jr., MD/[facility] Urology [address] [place] [address] Neurogenic Bladder, NOS Social History Tobacco Use Types Packs/Day Years Used Date Smoking Tobacco: Never Assessed Sex and Gender Information Value Date Recorded Sex Assigned at Not on file Legal Sex Male 5:13 AM EST Gender Identity Not on file Sexual Orientation Not on file documented as of this encounter Procedure Notes * Joey Excelsior Machine Operator - 11/26/2007 2:51 PM EDT documented in this encounter Plan of Treatment Not on file documented as of this encounter Procedures Procedure Name Priority Date/Time Associated Diagnosis Comments URINE CULTURE Routine 06/01/2007 10:00 AM EST URINALYSIS CHEMICAL ONLY Routine 06/01/2007 10:00 AM EST documented in this encounter Results * CULTURE, URINE (06/01/2007 10:00 AM EST) URINE CULTURE Source: CATHETERIZED URINE, IN AND OUT [facility] URINE CULTURE Procedure: URINE CULTURE Collected: 999 [facility] URINE CULTURE Received: 1025 [facility] URINE CULTURE FINAL REPORT [facility] URINE CULTURE FINAL REPORT 113 [id number] [facility] URINE CULTURE NO GROWTH <1,000 CFU/ML [facility] 06/01/2007 10:0 0 AM EST 06/01/2007 10:00 AM EST Woo Lerner Jr., MD/MPH MICRO CULTURE ORDERABLES Final Result Performing Organization Address [facility] de Phone Number [facility] * URINALYSIS CHEMICAL ONLY (06/01/2007 10:00 AM EST) U APPEARANCE CLEAR CLEAR [facility] U COLOR YELLOW [facility] SPECIFIC GRAVITY BY REFRACTOMETRY 1.023 1.005 - 1.030 [facility] Comment: (02/19/01 -- Current) SPECIFIC GRAVITY REFERENCE RANGE 1.005 - 1.030 U PH 6.0 5.0 - 8.0 [facility] U PROTEIN NEGATIVE NEGATIVE MG/DL [facility] U GLUCOSE NEGATIVE NEGATIVE MG/DL [facility] U KETONES NEGATIVE NEGATIVE MG/DL [facility] U BILI NEGATIVE NEGATIVE [facility] U BLOOD NEGATIVE NEGATIVE [facility] U NITRITE NEGATIVE NEGATIVE [facility] U UROBILINOGEN <2.0 0.2 - 1.0 EU/DL [facility] U LEUKOCYTE GLORIA NEGATIVE NEGATIVE [facility] 06/01/2007 10:0 0 AM EST 06/01/2007 10:00 AM EST Woo Lerner Jr., MD/MPH URINE ORDERABL ES Final Result Performing Organization Address [facility] Co de Phone Number [facility] documented in this encounter Visit Diagnoses Diagnosis Neurogenic bladder, NOS documented in this encounter Care Teams Variety Saw Operator Relationship Specialty Start Date End Date Job Delgado MD [address] [facility] [address] [place] [address] PCP - General External Family Practice 01/07/14 documented as of this encounter
--- OUTSIDE RECORDS SUMMARY | 2025-04-04 12:35 | XMS_ITS | Encounter Summary ---
Author Organization [facility] Address [facility] [place] [address] Care Team Providers Care Boilermaker Welder Name Role Phone Job Delgado MD Primary Care Provider [phone] Encounter Details Date Type Department Care Team (Late st Contact Info) Description 10/28/2012 Abstract [facility] Division of Pediatric Urology [address] [place] [phone] Seal Skinner, [facility] Social History Tobacco Use Types [...] encounter Progress Notes * Cookie Reid RN, SUPERVISOR DETASSELING CREW - 10/28/2012 12:25 PM EDT Reviewed, see [...] catch procedure (specimen) 10/15/2012 2:38 PM EDT [facility] Provider EXTERNAL LAB ORDERABLES Gricelda l [...] on filedocumented in this encounter Care Teams Boilermaker Welder Relationship Specialty Start Date End Date Job Delgado MD [facility] [place] [address] [address] [place] [address] PCP - General External Family Practice 01/07/14 documented as of this encounter
[2025-04-04 12:45] VITALS: BP 117/80; PULSE 80; RESP 20; TEMP 36.8; O2SAT 98
[2025-04-04 13:50] VITALS: BP 116/72; PULSE 83
[2025-04-04] MEDS: SODIUM CHLORIDE 0.9% 10ML FLUSH SYRINGE 10 ML IV (13:50)
== END 2025-04-04 23:59 | disposition home or self-care (01) ==
LOC: INF 12:33
PROVIDERS: PCP Internal Medicine Adolescent Medicine; Visit Provider Nurse Practitioner Family
DX: N39.0 Urinary tract infection, site not specified (principal); B96.5 Pseudomonas (aeruginosa) (mallei) (pseudomallei) as the cause of diseases classified elsewhere
CPT/HCPCS: 96365; J3260